=== PATIENT | female | born 1955 | race Caucasian/White ===

== ENCOUNTER → 2017-01-17 | Outpatient (CLI) | payer OTHER ==
[~2017-01-17] MED LIST: ACET-1311 PO; CHOL1000 PO; CLC100 PO; CYAN10005 PO; CYCL10TA6 PO; DOCU100C31 PO; FNTTP25 TOP; GABA-112 PO; GABA1CAP PO; GABA1CAP5 PO; LRS10 PO; MRLP17X PO; NRN100 PO; ONDA4TAB10 SL; ONDA4TAB46 PO; OXYC-57 PO; OXYC-88 PO; OXYC1TAB3 PO; POLY335019 PO; PRED50TA PO; PROC1TAB5 PO; TRAM-10 PO; VLTG EXT; voltaren gel
[2017-01-17 09:55] LABS: BASO % 0.3 %; BASO ABS # 0.03 K/uL (0-0.2); COMPLETE YES; EOS % 1.9 %; HEMATOCRIT 40.7 % (37-47); IG% 1.8 %; LYMPH % 21.3 %; LYMPH ABS # 1.92 K/uL (1.2-3.4); MEAN CELL VOLUME 84.6 fL (80-100); MEAN CORPUSCULAR HEMOGLOBIN 28.9 pg (25-34); MEAN CORPUSCULAR HGB CONC 34.2 g/dl (32-36); MEAN PLATELET VOLUME 9.1 fL (7.4-10.4); MONO % 7.6 %; NEUT % 67.1 %; PLATELET COUNT 194 K/uL (130-400); RED BLOOD COUNT 4.81 M/uL (4.2-5.4)
[2017-01-17 10:03] LABS: CALCIUM 9.4 mg/dl (8.5-10.1)
[2017-01-17 10:07] LABS: ALB/GLOB RATIO 1.1 (0.9-2); ALKALINE PHOSPHATASE 761 U/L (45-117); ALT/SGPT 21 U/L (12-78); AST/SGOT 28 U/L (15-37); BLOOD UREA NITROGEN 10 mg/dl (7-18); BUN/CREATININE RATIO 15.4 (10-20); C-REACTIVE PROTEIN 1.34 mg/dl (0-0.29); CARBON DIOXIDE 28 mmol/L (21-32); CHLORIDE 101 mmol/L (98-107); CREATININE 0.63 mg/dl (0.60-1.20); GLUCOSE 92 mg/dl (70-99); POTASSIUM 3.6 mmol/L (3.5-5.1); SODIUM 136 mmol/L (136-145)
[2017-01-17 10:18] LABS: PFT COL EPI 273 SECONDS (80-184)
[2017-01-17 10:46] LABS: PFT COL ADP 121 SECONDS (56-102)
[2017-01-17 12:10] LABS: LYME DISEASE AB IGG NEG (NEG)
[2017-01-17 12:13] LABS: LYME DISEASE AB IGM NEG (NEG)
== END | disposition home or self-care (01) ==
LOC: C.LAB 09:12
PROVIDERS: ATTEND Family Medicine
DX: R10.9 Unspecified abdominal pain (principal); R23.8 Other skin changes; Z68.24 Body mass index [BMI] 24.0-24.9, adult; M79.604 Pain in right leg; M54.5 Low back pain

== ENCOUNTER → 2017-01-20 | Outpatient (CLI) | payer OTHER ==
--- NOTE | 2017-02-14 15:51 | CODING QUERY NO DIAGNOSIS ---
TREATMENT RENDERED WITHOUT A DIAGNOSIS To promote full compliance with coding requirements relating to patient care, physician participation is requested in all cases of supervisor filter assembly uncertainty. Please assist us with providing a diagnosis/symptom for the test(s) below: A diagnosis/symptom was not documented on your Order. A valid diagnosis/symptom is required to bill all insurances. Please remember that we are unable to code a diagnosis of rule out, probable, possible, questionable, or suspected. Tests that require a diagnosis: * H. PYLORI ANTIGEN, STOOL DIAGNOSIS: Provider Signature: Date: Thank you Radha [employer] Once completed, please kindly fax back to [phone] For questions please call [phone]
== END | disposition home or self-care (01) ==
LOC: C.LABSPEC 10:00
PROVIDERS: ATTEND Family Medicine
DX: R10.9 Unspecified abdominal pain (principal)

== ENCOUNTER → 2017-01-23 | Outpatient (CLI) | payer OTHER ==
[~2017-01-23] MED LIST changes: +OPTIRAY 320 IV PRN
--- NOTE | 2017-01-23 14:14 | DIAGNOSTIC IMAGING REPORT ---
MRI OF THE BRAIN WITHOUT CONTRAST CLINICAL HISTORY: Bilateral leg and arm pain. Possible multiple sclerosis. History of endometriosis. COMPARISON STUDY: None. FINDINGS: Sagittal T1, axial diffusion, proton density and T2 weighted axial, coronal FLAIR, and axial T1-weighted images were acquired. No intra or extra-axial mass lesions are visualized Axial diffusion-weighted images reveal no evidence of acute or subacute infarction. There is no evidence of ventricular dilatation. Proton density T2-weighted and FLAIR images reveal scattered foci of increased T2 signal within the white matter, likely on a small vessel basis. The largest is located within the left frontal white matter measuring 6 mm. Other pathologic processes including demyelinating disease cannot be excluded. There are no abnormal flow voids. IMPRESSION: 1. No evidence of intracranial mass 2. No evidence of acute or subacute infarction 3. Scattered nonspecific foci of increased T2 and FLAIR signal within the white matter, the largest of which is located within the left frontal white matter measuring 6 mm. Electronically signed by: Mahamed Ramírez M.D. 01/23/2017 2:12 PM Dictated Date/Time: 01/23/2017 2:09 PM
--- NOTE | 2017-01-23 16:30 | DIAGNOSTIC IMAGING REPORT ---
ABDOMEN AND PELVIS CT WITH IV AND ORAL CONTRAST CT DOSE: 273.37 mGy.cm HISTORY: Pain B/L ARM/LEG Pain, hx OF ENDOMETRIOSIS TECHNIQUE: Multiaxial CT images of the abdomen and pelvis were performed following the use of intravenous and oral contrast. COMPARISON STUDY: 06/21/2008 FINDINGS: Lung bases are clear. Liver spleen and pancreas are uniform in appearance. Kidneys negative for hydronephrosis. Moderate thickening of the root of the mesentery. Numerous small mesenteric as well as pelvic nodes. These all are relatively small. Slight thickening of the terminal ileum. Moderate free fluid within the pelvic cul-de-sac. Possible right pelvic sidewall node measuring up to centimeters versus endometrioma. Bowel pattern overall is nonobstructive. Uterus remains midline. IMPRESSION: 1. Mild infiltrative changes of the root of the mesentery with a multiplicity of very small reactive mesenteric as well as pelvic nodes. 2. Nodular appearance to the right lateral pelvic sidewall with nodes or soft tissue deposits measuring up to 2.4 cm. 3. Moderate free fluid within the pelvic cul-de-sac. 4. Diagnostic considerations given the patient's history must include endometriosis, although if findings do not resolve an entity such as lymphomatous type change must be consideration. Electronically signed by: Jatin Nicholas M.D. 01/23/2017 4:29 PM Dictated Date/Time: 01/23/2017 4:25 PM
== END | disposition home or self-care (01) ==
LOC: C.MRI 13:23
PROVIDERS: ATTEND Family Medicine
DX: M79.606 Pain in leg, unspecified (principal); M79.603 Pain in arm, unspecified; R10.12 Left upper quadrant pain; Z87.898 Personal history of other specified conditions

== ENCOUNTER → 2017-01-24 | Outpatient (CLI) | payer OTHER ==
[~2017-01-24] MED LIST changes: -OPTIRAY 320 IV PRN
== END | disposition home or self-care (01) ==
LOC: C.LAB1850 15:45
PROVIDERS: ATTEND Obstetrics & Gynecology
DX: R93.5 Abnormal findings on diagnostic imaging of other abdominal regions, including retroperitoneum (principal)

== ENCOUNTER 2017-01-27 04:50 | Emergency (ER) | payer OTHER ==
[~2017-01-27] VITALS: Ht 162.6 cm; Wt 63.4 kg
[2017-01-27 04:54] VITALS: Ht 162.6 cm; Wt 63.4 kg
[2017-01-27] MEDS ORDERED: ONDANSETRON INJ 2 MG/ML 2 ML VIAL IV STA (05:23)
[2017-01-27] MEDS ORDERED: DEXAMETHASONE SOD INJ 10 MG/ML VIAL IV ONE (05:30)
[2017-01-27] MEDS ORDERED: SODIUM CHLORIDE 0.9% 1000ML 1,000 ML IV ONE (05:30)
[2017-01-27] MEDS ORDERED: MoRPHine SULFATE 4 MG/ML 1 ML CARP\\VIAL IV ONE (05:30)
[2017-01-27 05:51] LABS: HEMATOCRIT 36.2 % (37-47); MEAN CORPUSCULAR HGB CONC 33.7 g/dl (32-36); PLATELET COUNT 167 K/uL (130-400); RED BLOOD COUNT 4.36 M/uL (4.2-5.4); WHITE BLOOD COUNT 12.36 K/uL (4.8-10.8)
[2017-01-27 06:08] LABS: BUN/CREATININE RATIO 15.2 (10-20); CALCIUM 8.5 mg/dl (8.5-10.1); COMPLETE YES; CREATININE 0.59 mg/dl (0.60-1.20); LYMPH ABS # 2.52 K/uL (1.2-3.4); LYMPHOCYTE % 20.4 %; META ABS # 0.11 K/uL (0-0); METAMYELOCYTE % 0.9 %; POTASSIUM 3.3 mmol/L (3.5-5.1)
[2017-01-27 06:22] LABS: ALB/GLOB RATIO 1.1 (0.9-2); C-REACTIVE PROTEIN 1.14 mg/dl (0-0.29)
[2017-01-27] MEDS ORDERED: HYDROmorphone INJ 0.5 MG/0.5 ML SYR IV STA (06:37)
[2017-01-27] MEDS ORDERED: OXYC1TAB3 PO (06:39)
[2017-01-27] MEDS ORDERED: ONDA4TAB10 SL (06:39)
[2017-01-27] MEDS ORDERED: CYCL10TA6 PO (06:41)
[2017-01-27] MEDS ORDERED: GABA-112 PO (06:47)
[2017-01-27] MEDS ORDERED: CHOL1000 PO (06:47)
[2017-01-27] MEDS ORDERED: CYAN10005 PO (06:47)
[2017-01-27] MEDS ORDERED: PRED50TA PO (06:48)
[2017-01-27 07:01] VITALS: BP 121/74; PULSE 71; TEMP 36.6; O2SAT 99
--- NOTE | 2017-01-27 22:35 | EMERGENCY ROOM VISIT NOTE ---
History First contact with patient: 04:59 Chief Complaint: BACK PAIN Stated Complaint: EXTREME PAIN IN BACK,HIP AND LEGS History of Present Illness The patient is a 61 year old female who presents to the Emergency Room with complaints of low back pain radiating into her hips and down her legs. The patient states that she has had symptoms off and on for the past month, but it is exacerbated this past week. She has seen multiple providers for similar complaints this week, and has undergone outpatient pelvic ultrasound, CT scan of the abdomen and pelvis, and MRI of the brain regarding her symptoms. Initially there were concerns for possible etiologies such as endometriosis, and multiple sclerosis, causing these testings to be performed. The patient does not recall injury or trauma. She is currently on prednisone and Neurontin without any relief of symptoms. The patient states her symptoms worsen with movement, and make it difficult for her to rest comfortably in her bed. She has not had fever or chills. No chest pain, chest tightness, shortness of breath, or upper abdominal pain. She states ibuprofen was helping her symptoms at home, but she developed bruising, and she was asked to stop the medication. She rates her current discomfort an 8/10. Review of Systems More than 10 systems were reviewed and otherwise negative with the exception of history of present illness. Past Medical/Surgical History No reported chronic medical disease Family History No pertinent family history Social History Smoking Status: Never Smoker Housing Status: lives with family Current/Historical Medications Scheduled Cholecalciferol (Vitamin D3), 1,000 UNIT PO BID Cyanocobalamin (Vitamin B-12), 1,000 MCG PO BID Cyclobenzaprine Hcl (Flexeril), 10 MG PO TID Gabapentin (Neurontin), 100 MG PO DAILY Ondasetron Odt (Zofran Odt), 4 MG SL Q6H Prednisone (Prednisone), 50 MG PO DAILY Scheduled PRN Oxycodone Immediate Rel Tab (Roxicodone Ir), 1-2 TAB PO Q6 PRN for Pain Allergies Coded Allergies: Aspirin (Unverified Allergy, Unknown, ALTERED MENTAL STATUS, 01/27/17) Caffeine (Unverified Allergy, Unknown, ALTERED MENTAL STATUS, 01/27/17) Orphenadrine (Unverified Allergy, Unknown, ALTERED MENTAL STATUS, 01/27/17) Salicylates (Unverified Allergy, Unknown, ALTERED MENTAL STATUS, 01/27/17) Uncoded Allergies: XANTHINE (Allergy, Unknown, ALTERED MENTAL STATUS, 10/13/09) Physical Exam Vital Signs Date Time Temp Pulse Resp B/P Pulse Ox O2 Delivery O2 Flow Rate FiO2 01/27/17 07:01 36.6 71 18 121/74 99 01/27/17 06:44 71 18 121/74 99 Room Air 01/27/17 04:54 36.6 81 18 132/68 98 Room Air Pain Rating (0-10): 4.0 Physical Exam VITALS: Vitals are noted on the nurse's note and reviewed by myself. Vital signs stable. GENERAL: Well-developed, well-nourished, white female who appears mildly uncomfortable on examination. Patient is cooperative with the examination. HEAD: Normocephalic atraumatic. NECK: Supple without nuchal rigidity. No lymphadenopathy. No thyromegaly. Cervical spine is nontender. HEART: Regular rate and rhythm without murmurs gallops or rubs. LUNGS: Clear to auscultation bilaterally without wheezes, rales or rhonchi. No retractions or accessory muscle use. ABDOMEN: Positive normal bowel sounds x 4. Soft, nontender, without masses or organomegaly. No guarding or rebound tenderness. MUSCULOSKELETAL: No muscle atrophy, erythema, or edema noted. Full range of motion without joint tenderness in all extremities. Positive tenderness throughout the lower lumbar spine and SI joints. Negative straight leg raise. No saddle paresthesias. Neurovascular status is intact distally. NEURO: Patient was alert and oriented to person place and time. CN II through XII grossly intact. Medical Decision & Procedures Laboratory Results 01/27/17 05:35 Red Blood Count 4.36, Mean Corpuscular Volume 83.0, Mean Corpuscular Hemoglobin 28.0, Mean Corpuscular Hemoglobin Concent 33.7, Mean Platelet Volume 9.0 01/27/17 05:35 Test 01/27/17 05:35 White Blood Count 12.36 K/uL (4.8-10.8) Red Blood Count 4.36 M/uL (4.2-5.4) Hemoglobin 12.2 g/dL (12.0-16.0) Hematocrit 36.2 % (37-47) Mean Corpuscular Volume 83.0 fL (80-100) Mean Corpuscular Hemoglobin 28.0 pg (25-34) Mean Corpuscular Hemoglobin Concent 33.7 g/dl (32-36) Platelet Count 167 K/uL (130-400) Mean Platelet Volume 9.0 fL (7.4-10.4) RDW Standard Deviation 40.1 fL (36.4-46.3) RDW Coefficient of Variation 13.2 % (11.5-14.5) Neutrophils % (Manual) 76.0 % Lymphocytes % (Manual) 20.4 % Monocytes % (Manual) 2.7 % Metamyelocytes % 0.9 % Neutrophils # (Manual) 9.39 K/uL (1.4-6.5) Total Absolute Neutrophils 9.39 K/uL (1.4-6.5) Lymphocytes # (Manual) 2.52 K/uL (1.2-3.4) Total Absolute Lymphocytes 2.52 K/uL (1.2-3.4) Monocytes # (Manual) 0.33 K/uL (0.11-0.59) Metamyelocytes # 0.11 K/uL (0-0) Red Blood Cell Morphology Unremarkable Erythrocyte Sedimentation Rate 2 mm/hr (0-21) Anion Gap 9.0 mmol/L (3-11) Est Creatinine Clear Calc Drug Dose 88.7 ml/min Estimated GFR () 116.3 Estimated GFR (Non- 100.3 BUN/Creatinine Ratio 15.2 (10-20) Calcium Level 8.5 mg/dl (8.5-10.1) Total Bilirubin 0.4 mg/dl (0.2-1) Aspartate Amino Transf (AST/SGOT) 29 U/L (15-37) Alanine Aminotransferase (ALT/SGPT) 24 U/L (12-78) Alkaline Phosphatase 977 U/L (45-117) C-Reactive Protein 1.14 mg/dl (0-0.29) Total Protein 7.0 gm/dl (6.4-8.2) Albumin 3.7 gm/dl (3.4-5.0) Globulin 3.3 gm/dl (2.5-4.0) Albumin/Globulin Ratio 1.1 (0.9-2) Medications Administered Medications (Trade) Dose Ordered Sig/[place] Route Start Time Stop Time Status Last Admin Dose Admin Dexamethasone Sodium Phosphate 10 mg 10 mg NOW ONCE IV 01/27/17 05:30 01/27/17 05:31 DC 01/27/17 05:43 10 MG Sodium Chloride (Nss 1000ml) 1,000 ml @ 999 mls/hr Q1H1M ONCE IV 01/27/17 05:30 01/27/17 06:30 DC 01/27/17 05:43 999 MLS/HR Morphine Sulfate (MoRPHine SULFATE INJ) 4 mg NOW ONCE IV 01/27/17 05:30 01/27/17 05:31 DC 01/27/17 05:43 4 MG Ondansetron HCl (Zofran Inj) 4 mg NOW STAT IV 01/27/17 05:23 01/27/17 05:25 DC 01/27/17 05:43 4 MG Hydromorphone HCl (Dilaudid Inj) 0.5 mg NOW STAT IV 01/27/17 06:37 01/27/17 06:38 DC 01/27/17 06:40 0.5 MG ED Course Physical exam and history were performed. Nursing notes and EMR were reviewed. Patient appears to have back pain with radiation down her legs that appears worsened with movement. The patient has had multiple evaluations for back/ abdominal pain as an outpatient. She does not appear toxic today, and clinically her symptoms correlate with low back pain. Because she has had symptoms for some time I did elect to collect blood work. The patient was given IV morphine and IV Decadron for comfort. The patient's work is as above and was reviewed. She does have a very slightly elevated white blood cell count, but this is felt to be secondary to her prednisone usage. She does not have a significant anemia, bandemia, or significant electrolyte imbalance. On reevaluation the patient did have some mild improvement of her symptoms after morphine. She continued to have difficulty getting comfortable in the emergency department bed, and I did elect to give her 0.5 mg IV Dilaudid. This did improve her discomfort and she was able to rest comfortably. Review of the patient's EMR shows that she has had an MRI of her low back within the past 2 years which did show some disc disease. Clinically I feel this is the most likely cause of the patient's discomfort, and will provide her a course of oxycodone and Flexeril. She evidently has an appointment in several hours with her primary care physician for this complaint. She was asked to keep this appointment, and was invited back to the emergency department with a new, worsening, or concerning symptoms. The chart was completed utilizing [employer] Speech Voice Recognition Software. Grammatical errors, random word insertions, pronoun errors, and incomplete sentences are an occasional consequence of this system due to software limitations, ambient noise, and hardware issues. Any formal questions or concerns about the content, text, or information contained within the body of this dictation should be directly addressed to the provider for clarification. . Medical Decision Differential diagnosis: Etiologies such as musculoskeletal, disc herniation, fracture, aortic disease, metastatic disease, cord compression, discitis, infection, renal colic, gastrointestinal, acute exacerbation of chronic back pain, sciatica, cauda equina, as well as others were entertained. Impression Primary Impression: Low back pain Departure Information Dispostion Home / Self-Care Condition FAIR Prescriptions Cyclobenzaprine Hcl (FLEXERIL) 10 Mg Tab 10 MG PO TID for 7 Days, #21 TAB Prov: Jose R Payton PA-C 01/27/17 Ondasetron Odt (ZOFRAN ODT) 4 Mg Tab 4 MG SL Q6H for Nausea, #12 TAB Prov: Jose R Payton PA-C 01/27/17 Oxycodone Immediate Rel Tab (ROXICODONE IR) 5 Mg Tab 1-2 TAB PO Q6 Y for Pain, #15 TAB For initial treatment Prov: Jose R Payton PA-C 01/27/17 Forms HOME CARE DOCUMENTATION FORM, IMPORTANT VISIT INFORMATION Patient Instructions My [facility] Additional Instructions You were seen and evaluated today on an emergency basis only. This is not a substitute for, or an effort to provide, complete comprehensive medical care. It is not possible to recognize and treat all injuries or illnesses in a single emergency department visit. For this reason it is recommended that you followup with your primary care physician as scheduled later today. Oxycodone (OxyIR) 5mg: Take ONE or TWO pills every SIX hours for breakthrough pain. Avoid alcohol, operating machinery or dangerous equipment, working on ladders or roofs, DRIVING, or situations where being under the influence may be dangerous. It is recommended to use an [id number] stool softener such as Colace, 100mg twice daily while taking this medication to avoid constipation. Flexeril 1 tablet up to 3 times a day as needed for muscle spasms. No driving, working, or alcohol use with Flexeril. Zofran 1 tablet every 6 hrs as needed for nausea. You are welcome to return to the emergency department anytime with new, worsening, or concerning symptoms.
[2017-01-29] MEDS ORDERED: GABA-112 PO (16:48)
[2017-01-29] MEDS ORDERED: DOCU100C31 PO (16:48)
[2017-01-29] MEDS ORDERED: LRS10 PO (16:48)
[2017-01-29] MEDS ORDERED: TRAM-10 PO (16:48)
[2017-02-06] MEDS ORDERED: OXYC-88 PO (10:15)
[2017-02-06] MEDS ORDERED: GABA1CAP PO (10:15)
[2017-02-06] MEDS ORDERED: VLTG EXT (10:15)
[2017-02-06] MEDS ORDERED: MRLP17X PO (10:15)
[2017-02-06] MEDS ORDERED: ONDA4TAB10 SL (10:15)
[2017-02-06] MEDS ORDERED: CLC100 PO (10:15)
[2017-03-04] MEDS ORDERED: PROC1TAB5 PO (08:48)
[2017-04-11] MEDS ORDERED: DOCU100C31 PO (10:29)
[2017-04-11] MEDS ORDERED: voltaren gel (10:31)
[2017-04-11] MEDS ORDERED: ACET-1311 PO (10:32)
[2017-04-11] MEDS ORDERED: ONDA4TAB46 PO (10:32)
[2017-04-11] MEDS ORDERED: POLY335019 PO (10:32)
== END 2017-01-27 07:02 | disposition home or self-care (01) ==
LOC: C.EDB 04:52
DX: M54.5 Low back pain (principal); Z79.899 Other long term (current) drug therapy; Z88.6 Allergy status to analgesic agent; Z88.8 Allergy status to other drugs, medicaments and biological substances

== ENCOUNTER → 2017-01-28 | Outpatient (CLI) | payer OTHER | END | disposition home or self-care (01) | LOC: C.LAB1850 16:06 | PROVIDERS: ATTEND Family Medicine | DX: R10.10 Upper abdominal pain, unspecified (principal); R93.3 Abnormal findings on diagnostic imaging of other parts of digestive tract; R74.8 Abnormal levels of other serum enzymes; R79.1 Abnormal coagulation profile; M79.604 Pain in right leg; Z68.23 Body mass index [BMI] 23.0-23.9, adult; R20.2 Paresthesia of skin ==

== ENCOUNTER 2017-01-29 16:21 | Inpatient (IN) | payer OTHER ==
[~2017-01-29] VITALS: Ht 162.6 cm; Wt 61.4 kg
[~2017-01-29 16:21] MED LIST changes: -ACET-1311 PO; -CLC100 PO; -DOCU100C31 PO; -FNTTP25 TOP; -GABA1CAP PO; -GABA1CAP5 PO; -LRS10 PO; -MRLP17X PO; -NRN100 PO; -ONDA4TAB46 PO; -OXYC-57 PO; -OXYC-88 PO; -POLY335019 PO; -PROC1TAB5 PO; -TRAM-10 PO; -VLTG EXT; -voltaren gel
[2017-01-29] MEDS ORDERED: LRS10 PO ×2 (16:48)
[2017-01-29] MEDS ORDERED: TRAM-10 PO ×2 (16:48)
[2017-01-29] MEDS ORDERED: GABA-112 PO ×2 (16:48)
[2017-01-29] MEDS ORDERED: DOCU100C31 PO ×2 (16:48)
[2017-01-29] MEDS ORDERED: SODIUM CHLORIDE 0.9% 1000ML 1,000 ML IV STA (17:11)
[2017-01-29] MEDS ORDERED: PROMETHAZINE HCL INJ 25 MG/ML 1 ML VIAL IV STA (17:11)
[2017-01-29] MEDS ORDERED: SODIUM CHLORIDE 0.9% 1000ML 500 ML IV STA (17:11)
[2017-01-29] MEDS: HYDROmorphone INJ 2 MG/ML SYR/VIAL IV PRN ×2 (17:37→20:39)
[2017-01-29 17:40] LABS: HEMATOCRIT 37.4 % (37-47); MEAN CELL VOLUME 83.5 fL (80-100); MEAN CORPUSCULAR HEMOGLOBIN 27.7 pg (25-34); MEAN CORPUSCULAR HGB CONC 33.2 g/dl (32-36); MEAN PLATELET VOLUME 9.2 fL (7.4-10.4); PLATELET COUNT 147 K/uL (130-400); RED BLOOD COUNT 4.48 M/uL (4.2-5.4); WHITE BLOOD COUNT 11.84 K/uL (4.8-10.8)
[2017-01-29 17:49] LABS: INR 1.1 (0.9-1.1); PARTIAL THROMBOPLASTIN RATIO 0.9; PROTHROMBIN TIME (PATIENT) 12.3 SECONDS (9.0-12.0)
--- NOTE | 2017-01-29 17:51 | EMERGENCY ROOM VISIT NOTE ---
History Report prepared by Keo: Anthony Graham Under the Supervision of: Dr. Patrick Lopez M.D. First contact with patient: 17:00 Chief Complaint: PAIN (GENERALIZED) Stated Complaint: SEVERE BACK PAIN,PELVIS/LEG PAIN- PHYSICIAN REFERR History of Present Illness The patient is a 61 year old female who presents to the Emergency Room with complaints of worsening, throbbing lower back pain, lower pelvic pain, and bilateral leg pain for the past two and a half weeks. The patient rates her discomfort as a 9/10 in severity. The patient states that movement exacerbates the pain. She states that the pain started about a month ago, and she went to a chiropractor, and then after a few days it felt better until two and a half weeks ago. The patient states that she has an extensive history of testing such as CT scans, pelvic ultrasound, and brain MRI, and there have not been any conclusive diagnoses. Additionally, she states that they have tested her for ovarian cancer, and it was negative. The patient denies any urinary symptoms, and she states that she has a loss of appetite and some bruising. The patient states that she is currently taking pain medications and muscle relaxers, though they are not helping her, though she states that icing her back somewhat helps. The patient additionally states that she was recently taking prednisone, and it did not help as well. She states that she has been drinking well, and sometimes she feels very hot, though she denies any chills. She denies any history of abdominal surgery. Source of History: patient Onset: two and a half weeks ago Position: pelvis, back (lower), leg (bilateral) Symptom Intensity: 9/10 Quality: other (throbbing) Timing: worsening Modifying Factors (Worsening): movement Modifying Factors (Relieving): ice Associated Symptoms: + back pain, No chills, No urinary symptoms Note: Associated symptoms: Loss of appetite Review of Systems See HPI for pertinent positives & negatives. A total of 10 systems reviewed and were otherwise negative. Past Medical & Surgical Medical Problems: (1) Intractable low back pain Social History Smoking Status: Never Smoker Marital Status: Housing Status: lives with family Occupation Status: employed Current/Historical Medications Scheduled Baclofen (Baclofen), 5 MG PO BID Cholecalciferol (Vitamin D3), 1,000 UNIT PO BID Cyanocobalamin (Vitamin B-12), 1,000 MCG PO BID Docusate Sodium (Docusate Sodium), 100 CAP PO BID Gabapentin (Neurontin), 100 MG PO BID Gabapentin (Neurontin), 200 MG PO HS Scheduled PRN Tramadol (Ultram), 50-100 MG PO Q6H PRN for Pain Allergies Coded Allergies: Aspirin (Unverified Allergy, Unknown, ALTERED MENTAL STATUS, 01/29/17) Caffeine (Unverified Allergy, Unknown, ALTERED MENTAL STATUS, 01/29/17) Naproxen (Unverified Allergy, Unknown, UNKNOWN, 01/29/17) Orphenadrine (Unverified Allergy, Unknown, ALTERED MENTAL STATUS, 01/29/17) Salicylates (Unverified Allergy, Unknown, ALTERED MENTAL STATUS, 01/29/17) Uncoded Allergies: XANTHINE (Allergy, Unknown, ALTERED MENTAL STATUS, 10/13/09) Physical Exam Vital Signs Date Time Temp Pulse Resp B/P Pulse Ox O2 Delivery O2 Flow Rate FiO2 01/29/17 20:08 98 18 131/67 95 Room Air 01/29/17 19:32 116/94 01/29/17 16:25 36.9 82 18 92/58 95 Room Air Physical Exam GENERAL: Patient is in no acute distress. HEENT: No acute trauma, normocephalic atraumatic, mucous membranes are dry, no nasal congestion, no scleral icterus. NECK: No stridor, no adenopathy, no meningismus, trachea is midline. LUNGS: Clear to auscultation bilaterally, no wheeze, no rhonchi, breath sounds equal. HEART: Without murmurs gallops or rubs, regular rate and rhythm. ABDOMEN: Mildly distended. Soft, nontender, bowel sounds positive, no hernias, no peritonitis. BACK: Lower back pain with any movement. EXTREMITIES: No cyanosis or edema, full range of motion of all the joints without pain or difficulty, no signs for acute trauma. NEUROLOGIC: Oriented x 3, no acute motor or sensory deficits, no focal weakness. SKIN: No rash, no jaundice, no diaphoresis. Medical Decision & Procedures ER Provider Diagnostic Interpretation: Radiology results as stated below per my review and radiologist interpretation: MRI OF THE LUMBAR SPINE WITH AND WITHOUT CONTRAST CLINICAL HISTORY: Severe low back and lower extremity pain. COMPARISON STUDY: Lumbar spine MRI August 10, 2015. TECHNIQUE: Utilizing a 1.5 Deonna magnet and dedicated coil, multiplanar, multiecho imaging of the lumbar spine was performed before and after uneventful IV administration of 6 mL of Gadavist. FINDINGS: For purposes of numbering on this exam, the L5-S1 disc space is assigned to axial image 27 of 30. Alignment of the lumbar spine is anatomic. Vertebral body heights are maintained. There are innumerable foci of diminished T1 signal and increased T2 signal throughout the lower thoracic spine, lumbar spine, sacrum and visualized portions of the pelvis. No pathologic fracture is identified. The largest of these is a 2 cm lesion within the T11 vertebral body. There is no intracanalicular mass or fluid collection. The conus to moderate at the mid L1 level. A small amount of fluid is noted within the pelvis. L1-2: The central canal and neural foramen are patent. L2-3: The central canal and neural foramen are patent. L3-4: There is minimal disc bulge. The central canal and neural foramen are patent. L4-5: The central canal and neural foramen are patent. L5-S1: There is minimal disc bulge. The central canal and neural foramen are patent. IMPRESSION: 1. Innumerable foci of marrow replacement within visualized skeletal structures consistent with a neoplastic process such as metastatic disease, lymphoma or less likely myeloma. Metastatic disease is favored. Findings discussed with Dr. Lopez at time of dictation. 2. Mild multilevel degenerative disc disease. No disc herniation. Patent central canal and neural foramen. No intracanalicular mass or pathologic enhancement. 3. Small amount of ascites within the pelvis. Electronically signed by: William Chaudhry M.D. 01/29/2017 8:01 PM Dictated Date/Time: 01/29/2017 7:36 PM Laboratory Results 01/29/17 17:29 Red Blood Count 4.48, Mean Corpuscular Volume 83.5, Mean Corpuscular Hemoglobin 27.7, Mean Corpuscular Hemoglobin Concent 33.2, Mean Platelet Volume 9.2 01/29/17 17:29 Test 01/29/17 17:29 01/29/17 17:41 White Blood Count 11.84 K/uL (4.8-10.8) Red Blood Count 4.48 M/uL (4.2-5.4) Hemoglobin 12.4 g/dL (12.0-16.0) Hematocrit 37.4 % (37-47) Mean Corpuscular Volume 83.5 fL (80-100) Mean Corpuscular Hemoglobin 27.7 pg (25-34) Mean Corpuscular Hemoglobin Concent 33.2 g/dl (32-36) Platelet Count 147 K/uL (130-400) Mean Platelet Volume 9.2 fL (7.4-10.4) RDW Standard Deviation 40.3 fL (36.4-46.3) RDW Coefficient of Variation 13.3 % (11.5-14.5) Nucleated RBC Absolute Count (auto) 0.03 K/uL (0-0) Neutrophils % (Manual) 76.4 % Lymphocytes % (Manual) 14.8 % Monocytes % (Manual) 6.1 % Basophils % (Manual) 0.9 % Metamyelocytes % 0.9 % Myelocytes % 0.9 % Nucleated Red Blood Cells % 0.2 % Neutrophils # (Manual) 9.05 K/uL (1.4-6.5) Total Absolute Neutrophils 9.05 K/uL (1.4-6.5) Lymphocytes # (Manual) 1.75 K/uL (1.2-3.4) Total Absolute Lymphocytes 1.75 K/uL (1.2-3.4) Monocytes # (Manual) 0.72 K/uL (0.11-0.59) Basophils # (Manual) 0.11 K/uL (0-0.2) Metamyelocytes # 0.11 K/uL (0-0) Myelocytes # 0.11 K/uL (0-0) Red Blood Cell Morphology Unremarkable Erythrocyte Sedimentation Rate 5 mm/hr (0-21) Prothrombin Time 12.3 SECONDS (9.0-12.0) Prothromb Time International Ratio 1.1 (0.9-1.1) Activated Partial Thromboplast Time 24.5 SECONDS (21.0-31.0) Partial Thromboplastin Ratio 0.9 Anion Gap 6.0 mmol/L (3-11) Est Creatinine Clear Calc Drug Dose 91.8 ml/min Estimated GFR () 117.6 Estimated GFR (Non- 101.5 BUN/Creatinine Ratio 24.3 (10-20) Lactic Acid Level 0.6 mmol/L (0.4-2.0) Calcium Level 8.7 mg/dl (8.5-10.1) Magnesium Level 2.2 mg/dl (1.8-2.4) Total Bilirubin 0.6 mg/dl (0.2-1) Direct Bilirubin 0.1 mg/dl (0-0.2) Aspartate Amino Transf (AST/SGOT) 40 U/L (15-37) Alanine Aminotransferase (ALT/SGPT) 30 U/L (12-78) Alkaline Phosphatase 1101 U/L (45-117) Total Creatine Kinase 93 U/L (26-192) C-Reactive Protein 4.42 mg/dl (0-0.29) Total Protein 6.7 gm/dl (6.4-8.2) Albumin 3.4 gm/dl (3.4-5.0) Lipase 208 U/L (73-393) Thyroid Stimulating Hormone (TSH) 1.700 uIu/ml (0.300-4.500) Urine Color ORANGE Urine Appearance CLOUDY (CLEAR) Urine pH 5.0 (4.5-7.5) Urine Specific [place] 1.023 (1.000-1.030) Urine Protein NEG (NEG) Urine Glucose (UA) NEG (NEG) Urine Ketones TRACE (NEG) Urine Occult Blood 1+ (NEG) Urine Nitrite NEG (NEG) Urine Bilirubin NEG (NEG) Urine Urobilinogen NEG (NEG) Urine Leukocyte Esterase MODERATE (NEG) Urine WBC (Auto) 10-30 /hpf (0-5) Urine RBC (Auto) 0-4 /hpf (0-4) Urine Hyaline Casts (Auto) 10-30 /lpf (0-5) Urine Epithelial Cells (Auto) 20-30 /lpf (0-5) Urine Bacteria (Auto) NEG (NEG) Urine Crystals CALCIUM OXALATE (NONE Laboratory results reviewed by me. Medications Administered Medications (Trade) Dose Ordered Sig/[place] Route Start Time Stop Time Status Last Admin Dose Admin Sodium Chloride 500 ml @ 999 mls/hr Q31M STAT IV 01/29/17 17:11 01/29/17 17:41 DC 01/29/17 17:36 999 MLS/HR Sodium Chloride (Nss 1000ml) 1,000 ml @ 200 mls/hr Q5H STAT IV 01/29/17 17:11 01/29/17 22:05 DC 01/29/17 17:11 200 MLS/HR Hydromorphone HCl 0.5 mg 0.5 mg Q15M PRN IV 01/29/17 17:15 01/29/17 22:05 DC 01/29/17 20:39 0.5 MG Promethazine HCl/ Sodium Chloride (Phenergan Inj/ Nss 50ml) 50.5 ml @ 202 mls/hr Q6H PRN IV 01/29/17 18:00 01/30/17 03:24 DC 01/29/17 18:03 202 MLS/HR ED Course 1700: The patient was evaluated in room A12. A complete history and physical exam was performed. 1711: Sodium Chloride 1000 ml @ 200 mls/hr IV, Sodium Chloride 500 ml @ 999 mls/ hr IV 1715: Dilaudid Inj 0.5mg IV 1800: Promethazine HCl 12.5mg/ Sodium Chloride 50.5ml @ 202 mls/hr IV 2003: I discussed the patient's case with Dr. Espinoza. He is going to evaluate the patient for further treatment. 2005: I reevaluated the patient, and I discussed the treatment plan, and she understands that she will be coming in for further evaluation. Medical Decision The patient is a 61 year old female who presents to the ED with complaints of generalized pain. Differential diagnoses considered include lumbar disc disease , osteomyelitis, malignancy, discitis, dehydration, electrolyte imbalance, UTI, and anemia. There is a mild leukocytosis present, a left shift is present. This could be consistent with infection. No worrisome anemia. No significant electrolyte abnormality or kidney failure. Alkaline phosphatase is elevated at over 1000. Urinalysis shows contamination, no obvious infection. Lactic acid level was not elevated making sepsis and bowel ischemia less likely. MRI of the lumbar spine showed diffuse involvement of the bones of the lumbar spine and pelvis. Findings were consistent with malignancy, possibly lymphoma or metastatic disease. No fracture was seen. No large disc herniation. The patient received IV saline, IV Phenergan and IV Dilaudid, she is more comfortable. I spoke to the patient about her findings, she does require hospitalization for further care and further workup. Case management has been involved. The on- call hospitalist was consulted. Consults Time Called: 1954 Consulting Physician: Dr. Espinoza Returned Call: 2003 I discussed the patient's case with Dr. Espinoza. He is going to evaluate the patient for further treatment. Impression Primary Impression: Lower back pain Additional Impressions: Pelvic pain Malignancy Scribe Attestation The scribe's documentation has been prepared under my direction and personally reviewed by me in its entirety. I confirm that the note above accurately reflects all work, treatment, procedures, and medical decision making performed by me. Departure Information Dispostion Being Evaluated By Hospitalist Referrals Avila Busch M.D. (PCP) Patient Instructions My [facility] Problem Qualifiers
[2017-01-29] MEDS ORDERED: PROMETHAZINE HCL INJ 12.5 MG in SODIUM CHLORIDE 0.9% 50ML 50 ML IV PRN (18:00)
[2017-01-29 18:05] LABS: URINE APPEARANCE CLOUDY (CLEAR); URINE BILIRUBIN NEG (NEG); URINE COLOR ORANGE; URINE EPITHELIAL CELL AUTO 20-30 /lpf (0-5); URINE NITRITE NEG (NEG); URINE SPECIFIC GRAVITY 1.023 (1.000-1.030); UROBILINOGEN NEG (NEG); ZZUR CULT IF INDIC CLEAN CATCH YES
[2017-01-29 18:05] LABS: BASO ABS # 0.11 K/uL (0-0.2); BASOPHIL % 0.9 %; COMPLETE YES; LYMPH ABS # 1.75 K/uL (1.2-3.4); LYMPHOCYTE % 14.8 %; META ABS # 0.11 K/uL (0-0); METAMYELOCYTE % 0.9 %; MYELOCYTE % 0.9 %; NEUTROPHILS % 76.4 %
[2017-01-29 18:08] LABS: MANUAL MICROSCOPIC REQUIRED? NO; REVIEW REQ? YES
[2017-01-29 18:12] LABS: BUN/CREATININE RATIO 24.3 (10-20); CALCIUM 8.7 mg/dl (8.5-10.1); CREATININE 0.57 mg/dl (0.60-1.20); MAGNESIUM 2.2 mg/dl (1.8-2.4); POTASSIUM 3.4 mmol/L (3.5-5.1)
[2017-01-29 18:26] LABS: C-REACTIVE PROTEIN 4.42 mg/dl (0-0.29); THYROID STIMULATING HORMONE 1.7 uIu/ml (0.300-4.500)
[2017-01-29] MEDS ORDERED: GADAVIST IV PRN (19:45)
--- NOTE | 2017-01-29 20:02 | DIAGNOSTIC IMAGING REPORT ---
MRI OF THE LUMBAR SPINE WITH AND WITHOUT CONTRAST CLINICAL HISTORY: Severe low back and lower extremity pain. COMPARISON STUDY: Lumbar spine MRI August 10, 2015. TECHNIQUE: Utilizing a 1.5 Deonna magnet and dedicated coil, multiplanar, multiecho imaging of the lumbar spine was performed before and after uneventful IV administration of 6 mL of Gadavist. FINDINGS: For purposes of numbering on this exam, the L5-S1 disc space is assigned to axial image 27 of 30. Alignment of the lumbar spine is anatomic. Vertebral body heights are maintained. There are innumerable foci of diminished T1 signal and increased T2 signal throughout the lower thoracic spine, lumbar spine, sacrum and visualized portions of the pelvis. No pathologic fracture is identified. The largest of these is a 2 cm lesion within the T11 vertebral body. There is no intracanalicular mass or fluid collection. The conus to moderate at the mid L1 level. A small amount of fluid is noted within the pelvis. L1-2: The central canal and neural foramen are patent. L2-3: The central canal and neural foramen are patent. L3-4: There is minimal disc bulge. The central canal and neural foramen are patent. L4-5: The central canal and neural foramen are patent. L5-S1: There is minimal disc bulge. The central canal and neural foramen are patent. IMPRESSION: 1. Innumerable foci of marrow replacement within visualized skeletal structures consistent with a neoplastic process such as metastatic disease, lymphoma or less likely myeloma. Metastatic disease is favored. Findings discussed with Dr. Lopez at time of dictation. 2. Mild multilevel degenerative disc disease. No disc herniation. Patent central canal and neural foramen. No intracanalicular mass or pathologic enhancement. 3. Small amount of ascites within the pelvis. Electronically signed by: William Chaudhry M.D. 01/29/2017 8:01 PM Dictated Date/Time: 01/29/2017 7:36 PM
[2017-01-29] MEDS ORDERED: OXYCODONE/ACETAMINOPHEN 10/325MG TAB PO PRN (20:45)
[2017-01-29] MEDS ORDERED: ZOLPIDEM TARTRATE 5 MG TAB PO PRN (20:45)
[2017-01-29] MEDS ORDERED: ALUMINUM/MAGNESIUM/SIMETH (MAALOX MAX) 30 ML UDC PO PRN (20:45)
[2017-01-29] MEDS ORDERED: MAGNESIUM HYDROXIDE SUSP 30 ML UDC PO PRN (20:45)
[2017-01-29] MEDS ORDERED: POLYETHYLENE (MIRALAX) 17 GM PACK PO PRN (20:45)
[2017-01-29] MEDS ORDERED: MoRPHine SULFATE 4 MG/ML 1 ML CARP\\VIAL IV PRN (20:45)
[2017-01-29] MEDS ORDERED: ACETAMINOPHEN 325 MG TAB PO PRN (20:45)
[2017-01-29] MEDS ORDERED: OPTIRAY 320 IV PRN (21:00)
[2017-01-29] MEDS ORDERED: IV FLUIDS COMPLETED PRN (21:30)
--- NOTE | 2017-01-29 21:41 | History and Physical ---
History & Physical Date & Time of Service: January 29, 2017 at 20:33 Chief Complaint: Severe Back Pain,Pelvis/Leg Pain- Physician Referr Primary Care Physician: Avila Busch M.D. History of Present Illness Source: patient, family 61 y/o F presenting with 2-3 months of vague symptoms including progressive lower back pain, B/L leg pain, night sweats and a degree of weight loss. A few weeks ago she was seen by a corn detasseler machine operator for frequent bruising which was attributed ultimately to NSAID use. Her pain over the last 2 weeks has become severe and intractable and she was sent to the hospital by her MD for further evaluation and pain control. On 01/[address] of the abdomen/pelvis which revealed multiple small LNs and a 2.4cm soft tissue deposit read as possible inflammatory changes although lymphoma could not be ruled out. She had an MRI of her lumbar spine in the ER prior to admission which showed multiple foci of marrow replacement consistent with a neoplastic process again sighting lymphoma as a reasonable possibility. She is admitted primarily for pain control. She has been informed with family present that she may have an active neoplastic process and that we will be consulting hematology to advise on further workup in isolating a primary source to be followed by staging and prognostication. Past Medical/Surgical History No recent active medical issues Family History She has had 2nd degree relatives with CA although she does not have any specifics - no CA in immediate family Social History Smoking Status: Never Smoker Alcohol Use: none Marital Status: Occupational Status: employed Multi-Drug Resistant Organisms History of MDRO: No Allergies Coded Allergies: Aspirin (Unverified Allergy, Unknown, ALTERED MENTAL STATUS, 01/29/17) Caffeine (Unverified Allergy, Unknown, ALTERED MENTAL STATUS, 01/29/17) Naproxen (Unverified Allergy, Unknown, UNKNOWN, 01/29/17) Orphenadrine (Unverified Allergy, Unknown, ALTERED MENTAL STATUS, 01/29/17) Salicylates (Unverified Allergy, Unknown, ALTERED MENTAL STATUS, 01/29/17) Uncoded Allergies: XANTHINE (Allergy, Unknown, ALTERED MENTAL STATUS, 10/13/09) Home Medications Scheduled Baclofen (Baclofen), 5 MG PO BID Cholecalciferol (Vitamin D3), 1,000 UNIT PO BID Cyanocobalamin (Vitamin B-12), 1,000 MCG PO BID Docusate Sodium (Docusate Sodium), 100 CAP PO BID Gabapentin (Neurontin), 100 MG PO BID Gabapentin (Neurontin), 200 MG PO HS Scheduled PRN Tramadol (Ultram), 50-100 MG PO Q6H PRN for Pain Review of Systems Constitutional: + fatigue, + sweats, + weakness, + weight loss, No chills, No fever Eyes: No eye pain, No worsening of vision ENT: No hearing loss, No nasal symptoms, No unusual epistaxis Respiratory: No cough, No dyspnea at rest, No dyspnea on exertion, No shortness of breath, No sputum, No wheezing Cardiovascular: No PND, No chest pain, No orthopnea Abdomen: No nausea, No pain, No vomiting Musculoskeletal: + joint pain, + muscle pain, + problem reported (Severe pain in lower back and B/L LEs as above) Genitourinary - Female: No dysuria, No urinary frequency, No urinary urgency Neurologic: No memory loss, No paralysis, No weakness Psychiatric: No depression symptoms Endocrine: No fatigue Hematologic / Lymphatic: + abnormal bleeding/bruising Integumentary: No rash Allergic / Immunologic: No environmental allergies Physical Exam Vital Signs Date Time Temp Pulse Resp B/P Pulse Ox O2 Delivery O2 Flow Rate FiO2 01/29/17 20:08 98 18 131/67 95 Room Air 01/29/17 16:25 36.9 82 18 92/58 95 Room Air General Appearance: WD/WN, no apparent distress Head: normocephalic, atraumatic Eyes: normal inspection, PERRL, EOMI ENT: normal ENT inspection, pharynx normal Neck: supple, no adenopathy, thyroid normal, no JVD Respiratory/Chest: chest non-tender, lungs clear, normal breath sounds Cardiovascular: regular rate, rhythm, no edema, no gallop, no JVD, no murmur, normal peripheral pulses Abdomen/GI: normal bowel sounds, non tender, soft Back: normal range of motion, + pertinent finding (PAinover lower back/hips) Extremities/Musculoskelatal: normal inspection, no calf tenderness, normal capillary refill, no pedal edema, normal range of motion Neurologic/Psych: senior resident care director II-XII nml as tested, no motor/sensory deficits, alert, normal mood/affect, normal reflexes, oriented x 3 Skin: normal color, warm/dry, no rash, + pertinent finding (multiple small bruises on LEs) Diagnostics Laboratory Results Results Past 24 Hours Test 01/29/17 17:29 01/29/17 17:41 Range/Units White Blood Count 11.84 4.8-10.8 K/uL Red Blood Count 4.48 4.2-5.4 M/uL Hemoglobin 12.4 12.0-16.0 g/dL Hematocrit 37.4 37-47 % Mean Corpuscular Volume 83.5 80-100 fL Mean Corpuscular Hemoglobin 27.7 25-34 pg Mean Corpuscular Hemoglobin Concent 33.2 32-36 g/dl Platelet Count 147 130-400 K/uL Mean Platelet Volume 9.2 7.4-10.4 fL RDW Standard Deviation 40.3 36.4-46.3 fL RDW Coefficient of Variation 13.3 11.5-14.5 % Nucleated RBC Absolute Count (auto) 0.03 0-0 K/uL Neutrophils % (Manual) 76.4 % Lymphocytes % (Manual) 14.8 % Monocytes % (Manual) 6.1 % Basophils % (Manual) 0.9 % Metamyelocytes % 0.9 % Myelocytes % 0.9 % Nucleated Red Blood Cells % 0.2 % Neutrophils # (Manual) 9.05 1.4-6.5 K/uL Total Absolute Neutrophils 9.05 1.4-6.5 K/uL Lymphocytes # (Manual) 1.75 1.2-3.4 K/uL Total Absolute Lymphocytes 1.75 1.2-3.4 K/uL Monocytes # (Manual) 0.72 0.11-0.59 K/uL Basophils # (Manual) 0.11 0-0.2 K/uL Metamyelocytes # 0.11 0-0 K/uL Myelocytes # 0.11 0-0 K/uL Red Blood Cell Morphology Unremarkable Erythrocyte Sedimentation Rate 5 0-21 mm/hr Prothrombin Time 12.3 9.0-12.0 SECONDS Prothromb Time International Ratio 1.1 0.9-1.1 Activated Partial Thromboplast Time 24.5 21.0-31.0 SECONDS Partial Thromboplastin Ratio 0.9 Sodium Level 134 136-145 mmol/L Potassium Level 3.4 3.5-5.1 mmol/L Chloride Level 97 98-107 mmol/L Carbon Dioxide Level 31 21-32 mmol/L Anion Gap 6.0 3-11 mmol/L Blood Urea Nitrogen 14 7-18 mg/dl Creatinine 0.57 0.60-1.20 mg/dl Est Creatinine Clear Calc Drug Dose 91.8 ml/min Estimated GFR () 117.6 Estimated GFR (Non- 101.5 BUN/Creatinine Ratio 24.3 10-20 Random Glucose 97 70-99 mg/dl Lactic Acid Level 0.6 0.4-2.0 mmol/L Calcium Level 8.7 8.5-10.1 mg/dl Magnesium Level 2.2 1.8-2.4 mg/dl Total Bilirubin 0.6 0.2-1 mg/dl Direct Bilirubin 0.1 0-0.2 mg/dl Aspartate Amino Transf (AST/SGOT) 40 15-37 U/L Alanine Aminotransferase (ALT/SGPT) 30 12-78 U/L Alkaline Phosphatase 1101 45-117 U/L Total Creatine Kinase 93 26-192 U/L C-Reactive Protein 4.42 0-0.29 mg/dl Total Protein 6.7 6.4-8.2 gm/dl Albumin 3.4 3.4-5.0 gm/dl Lipase 208 73-393 U/L Thyroid Stimulating Hormone (TSH) 1.700 0.300-4.500 uIu/ml Urine Color ORANGE Urine Appearance CLOUDY CLEAR Urine pH 5.0 4.5-7.5 Urine Specific [place] 1.023 1.000-1.030 Urine Protein NEG NEG Urine Glucose (UA) NEG NEG Urine Ketones TRACE NEG Urine Occult Blood 1+ NEG Urine Nitrite NEG NEG Urine Bilirubin NEG NEG Urine Urobilinogen NEG NEG Urine Leukocyte Esterase MODERATE NEG Urine WBC (Auto) 10-30 0-5 /hpf Urine RBC (Auto) 0-4 0-4 /hpf Urine Hyaline Casts (Auto) 10-30 0-5 /lpf Urine Epithelial Cells (Auto) 20-30 0-5 /lpf Urine Bacteria (Auto) NEG NEG Urine Crystals CALCIUM OXALATE NONE PRSENT Microbiology Results 01/29/17 Urine Culture, Received Pending Diagnostic Radiology IMPRESSION: MRI Lumbar spine 1. Innumerable foci of marrow replacement within visualized skeletal structures consistent with a neoplastic process such as metastatic disease, lymphoma or less likely myeloma. Metastatic disease is favored. Findings discussed with Dr. Lopez at time of dictation. 2. Mild multilevel degenerative disc disease. No disc herniation. Patent central canal and neural foramen. No intracanalicular mass or pathologic enhancement. 3. Small amount of ascites within the pelvis. CT abdomen, pelvis 1. Mild infiltrative changes of the root of the mesentery with a multiplicity of very small reactive mesenteric as well as pelvic nodes. 2. Nodular appearance to the right lateral pelvic sidewall with nodes or soft tissue deposits measuring up to 2.4 cm. 3. Moderate free fluid within the pelvic cul-de-sac. 4. Diagnostic considerations given the patient's history must include endometriosis, although if findings do not resolve an entity such as lymphomatous type change must be consideration. Impression Assessment and Plan 61 y/o F presenting with 2-3 months of vague symptoms including progressive lower back pain, B/L leg pain, night sweats and a degree of weight loss. A few weeks ago she was seen by a corn detasseler machine operator for frequent bruising which was attributed ultimately to NSAID use. Her pain over the last 2 weeks has become severe and intractable and she was sent to the hospital by her MD for further evaluation and pain control. On 01/[address] of the abdomen/pelvis which revealed multiple small LNs and a 2.4cm soft tissue deposit read as possible inflammatory changes although lymphoma could not be ruled out. She had an MRI of her lumbar spine in the ER prior to admission which showed multiple foci of marrow replacement consistent with a neoplastic process again sighting lymphoma as a reasonable possibility. She is admitted primarily for pain control. She has been informed with family present that she may have an active neoplastic process and that we will be consulting hematology to advise on further workup in isolating a primary source to be followed by staging and prognostication. Pts findings are most consistent with lymphoma or metastasis from an unknown primary - myeloma would be less likely. We have consulted Hematology to advise on further diagnostic evaluation. Regarding her pain, we have started her on scheduled Oxycodone and Morphine for breakthrough which may allow us to calculate her outpt requirements prior to DC. Full code - Heparin prophylaxis Total time for this admit including review of labs, meds, EKG - discussion with pt, spouse and ER attending 38 min Level of Care Med/Surg Resuscitation Status FULL RESUSCITATION VTE Prophylaxis Given or contraindicated: Unfractionated heparin SQ
[2017-01-29] MEDS ORDERED: KETOROLAC TROMETHAMINE 30 MG/ML VIAL IV PRN (21:45)
[2017-01-29 22:00] VITALS: BP 133/76; PULSE 95; TEMP 36.8; O2SAT 91
[2017-01-29] MEDS ORDERED: D5NSS + 20MEQ KCL 1,000 ML IV SCH (22:30)
[2017-01-29] MEDS: HYDROmorphone INJ 1 MG/ML SYR IV PRN (22:58)
[2017-01-29] MEDS: CEFTRIAXONE SOD INJ 1 GM in DEXTROSE 5% ADD-VANTAGE 50ML 50 ML IV SCH (23:08)
[2017-01-29] MEDS: DOCUSATE SODIUM 100 MG CAP PO SCH (23:18)
[2017-01-29] MEDS: BACLOFEN 10 MG TAB PO SCH (23:19)
[2017-01-29] MEDS: OXYCODONE/ACETAMINOPHEN 10/325MG TAB PO SCH (23:19)
[2017-01-29] MEDS: HEPARIN SOD 5000 UNIT/0.5 ML CARP SQ SCH (23:23)
[2017-01-29] MEDS: GABAPENTIN 100 MG CAP PO SCH (23:24)
[2017-01-30] VITALS (8 sets, daily range): BP systolic 96–133; BP diastolic 60–76; PULSE 88–97; TEMP 36.8–37.6; O2SAT 91–97; Ht 162.6 cm; Wt 61.4 kg
[2017-01-30] MEDS: HYDROmorphone INJ 1 MG/ML SYR IV PRN ×11 (01:19→23:21)
[2017-01-30] MEDS ORDERED: IV FLUIDS COMPLETED PRN (02:15)
[2017-01-30] MEDS: OXYCODONE/ACETAMINOPHEN 10/325MG TAB PO SCH ×2 (03:45→10:25)
[2017-01-30] MEDS: HEPARIN SOD 5000 UNIT/0.5 ML CARP SQ SCH ×3 (06:01→21:00)
[2017-01-30] MEDS: GABAPENTIN 100 MG CAP PO SCH ×3 (08:16→20:54)
[2017-01-30] MEDS: BACLOFEN 10 MG TAB PO SCH ×2 (08:17→20:55)
[2017-01-30] MEDS: DOCUSATE SODIUM 100 MG CAP PO SCH ×2 (08:17→20:56)
--- NOTE | 2017-01-30 09:33 | Oncology Consultation ---
Oncology/Heme Consultation Date of Consultation: January 30, 2017. Attending Physician: Tiffany Khanna MD Reason for Consultation: Probable bony involvement with a neoplastic process History of Present Illness Ms. Vásquez is a 61-year-old postmenopausal female that presents with progressive bone pain primarily in her lower back for the past few weeks. She denies significant weight loss however she states her appetite has been decreasing. She denies nausea she denies any fever or chills. Some this pain has been in the lower pelvic area more recently. Recent scans have demonstrated changes within the abdomen that could be consistent with a neoplastic process involving lymph nodes and or on review today perhaps a appendiceal issue. Both films of also demonstrated diffuse changes consistent with a neoplastic process. She was seen in our clinic last Friday for platelet dysfunction presumably secondary to nonsteroidals that she has been using. She denies any blood in her stool. Colonoscopy she states 7 years ago was unremarkable. Past Medical/Surgical History Medical Problems: (1) Low back pain Status: Acute (2) Lower back pain Status: Acute (3) Malignancy Status: Acute (4) Pelvic pain Status: Acute Family History Colon carcinoma in a grandmother on the paternal side as well as an aunt again on the paternal side Social History Smoking Status: Never Smoker Alcohol Use: none Marital Status: Housing Status: lives with family Occupation Status: employed Allergies Coded Allergies: Aspirin (Unverified Allergy, Unknown, ALTERED MENTAL STATUS, 01/29/17) Caffeine (Unverified Allergy, Unknown, ALTERED MENTAL STATUS, 01/29/17) Naproxen (Unverified Allergy, Unknown, UNKNOWN, 01/29/17) Orphenadrine (Unverified Allergy, Unknown, ALTERED MENTAL STATUS, 01/29/17) Salicylates (Unverified Allergy, Unknown, ALTERED MENTAL STATUS, 01/29/17) Uncoded Allergies: XANTHINE (Allergy, Unknown, ALTERED MENTAL STATUS, 10/13/09) Home Medications Scheduled Baclofen (Baclofen), 5 MG PO BID Cholecalciferol (Vitamin D3), 1,000 UNIT PO BID Cyanocobalamin (Vitamin B-12), 1,000 MCG PO BID Docusate Sodium (Docusate Sodium), 100 CAP PO BID Gabapentin (Neurontin), 100 MG PO BID Gabapentin (Neurontin), 200 MG PO HS Scheduled PRN Tramadol (Ultram), 50-100 MG PO Q6H PRN for Pain Current Inpatient Medications Current Inpatient Medications Medications (Trade) Dose Ordered Sig/[place] Route Start Time Stop Time Status Last Admin Dose Admin Gadobutrol (Gadavist) 6 mmol UD PRN IV 01/29/17 19:45 02/02/17 19:44 Baclofen (Lioresal Tab) 5 mg BID PO 01/29/17 21:00 02/28/17 20:59 01/30/17 08:17 5 MG Docusate Sodium (coLACE CAP) 100 mg BID PO 01/29/17 21:00 02/28/17 20:59 01/30/17 08:17 100 MG Gabapentin (Neurontin Cap) 100 mg BID@0800,1200 PO 01/30/17 08:00 03/01/17 07:59 01/30/17 08:16 100 MG Gabapentin (Neurontin Cap) 200 mg HS PO 01/29/17 21:00 02/28/17 20:59 01/29/17 23:24 200 MG Heparin Sodium (Porcine) (Heparin Sq 5000 Unit/0.5ml) 5,000 unit Q8 SQ 01/29/17 22:00 02/28/17 21:59 01/30/17 06:01 5,000 UNIT Acetaminophen (Tylenol Tab) 650 mg Q4H PRN PO 01/29/17 20:45 02/28/17 20:44 Al Hydrox/Mg Hydrox/Simethicone (Maalox Max Susp) 15 ml Q4H PRN PO 01/29/17 20:45 02/28/17 20:44 Magnesium Hydroxide (Milk Of Magnesia Susp) 30 ml Q6H PRN PO 01/29/17 20:45 02/28/17 20:44 Polyethylene (Miralax Powder Packet) 17 gm DAILY PRN PO 01/29/17 20:45 02/28/17 20:44 Zolpidem Tartrate (Ambien Tab) 5 mg HSZ PRN PO 01/29/17 20:45 02/28/17 20:44 Ondansetron HCl (Zofran Inj) 4 mg Q6H PRN IV 01/29/17 20:45 02/28/17 20:44 Ioversol (Optiray 320) 111 ml UD PRN IV 01/29/17 21:00 02/02/17 20:59 Miscellaneous (Iv Fluids Completed) 1 ea PRN PRN N/A 01/29/17 21:30 01/29/18 21:29 Ketorolac Tromethamine (Toradol Inj) 30 mg HS PRN IV 01/29/17 21:45 02/03/17 21:44 Oxycodone/ Acetaminophen 1 tab 1 tab Q6H PO 01/29/17 22:15 02/12/17 22:14 01/30/17 03:45 1 TAB Ceftriaxone Sodium/Dextrose (Rocephin Inj/ Dextrose Add-[place] 50ML) 50 ml @ 100 mls/hr Q24H IV 01/29/17 23:00 02/03/17 22:59 01/29/17 23:08 100 MLS/HR Hydromorphone HCl (Dilaudid Inj) 0.5 mg Q2H PRN IV 01/29/17 22:45 02/12/17 22:44 01/30/17 08:24 0.5 MG Review of Systems Constitutional: Negative for weight loss, night sweats, or fever Eyes: Negative for event change of vision ENT: Negative for epistaxis, nasal discharge, sore throat, or deafness Cardiovascular: Negative for chest pain, palpitations, dizziness, diaphoresis Respiratory: Negative for new shortness of breath,hemoptysis, or purulent cough. She states she has a cold now Gastrointestinal: Negative for diarrhea, hematemesis, melena, nausea, vomiting , or dyspepsia Integumentary (skin): Negative for rash or jaundice discoloration Genitourinary: Negative for urinary frequency, hematuria, or dysuria Neurological: Negative for weakness, seizure activity, headache, or dizziness Lymphatic/Hematologic: Negative for petechiae, bleeding or new adenopathy Musculoskeletal: Back pain as reviewed particularly lower back Allergic/Immunologic: Negative for unusual rash or pruritis. Physical Exam Date Time Temp Pulse Resp B/P Pulse Ox O2 Delivery O2 Flow Rate FiO2 01/30/17 07:33 37.3 16 102/63 95 Room Air 01/30/17 06:04 91 97/61 01/30/17 05:05 36.9 97 19 104/68 91 Room Air 01/30/17 00:25 36.8 95 20 133/76 Room Air 01/29/17 22:00 36.8 95 20 133/76 91 Room Air 01/29/17 21:41 36.7 98 18 128/76 95 01/29/17 21:32 128/76 95 Room Air 01/29/17 20:08 98 18 131/67 95 Room Air 01/29/17 19:32 116/94 01/29/17 16:25 36.9 82 18 92/58 95 Room Air Constitutional: vitals are stable. Eyes: Eyes are KIARRA EOMI without conjuctival erythema or icterus. ENT: External examination was negative for masses. Neck: Negative for masses or palpable thyromegaly Respiratory: Lung sounds were generally clear bilaterally Cardiovascular: Heart was RRR without significant murmur, gallops aoe rubs Gastrointestinal: No palpable hepatic or splenomegaly. The abdomen was soft with normal bowel sounds. Lymphatic system: there was no palpable peripheral lymphadenopathy Musculoskeletal System: The musculoskeletal system seemed concordant with age. Skin: The skin was negative for jaundice. Some quite small ecchymotic areas over the abdomen Neurologic exam: The exam was negative for any focal findings. Deep tendon reflexes were equal and symmetrical. Psychiatric exam: Was essentially negative with normal mood and effect. Breast exam: Done with patient permission was negative for palpable masses or corollary supraclavicular or axillary palpable adenopathy. Exam was witnessed by either a relative, weld inspector, or clinic staff. Extremities: Negative for edema or erythema Laboratory Results Last 24 Hours Test 01/29/17 17:29 01/29/17 17:41 White Blood Count 11.84 K/uL Red Blood Count 4.48 M/uL Hemoglobin 12.4 g/dL Hematocrit 37.4 % Mean Corpuscular Volume 83.5 fL Mean Corpuscular Hemoglobin 27.7 pg Mean Corpuscular Hemoglobin Concent 33.2 g/dl Platelet Count 147 K/uL Mean Platelet Volume 9.2 fL RDW Standard Deviation 40.3 fL RDW Coefficient of Variation 13.3 % Nucleated RBC Absolute Count (auto) 0.03 K/uL Neutrophils % (Manual) 76.4 % Lymphocytes % (Manual) 14.8 % Monocytes % (Manual) 6.1 % Basophils % (Manual) 0.9 % Metamyelocytes % 0.9 % Myelocytes % 0.9 % Nucleated Red Blood Cells % 0.2 % Neutrophils # (Manual) 9.05 K/uL Total Absolute Neutrophils 9.05 K/uL Lymphocytes # (Manual) 1.75 K/uL Total Absolute Lymphocytes 1.75 K/uL Monocytes # (Manual) 0.72 K/uL Basophils # (Manual) 0.11 K/uL Metamyelocytes # 0.11 K/uL Myelocytes # 0.11 K/uL Red Blood Cell Morphology Unremarkable Erythrocyte Sedimentation Rate 5 mm/hr Prothrombin Time 12.3 SECONDS Prothromb Time International Ratio 1.1 Activated Partial Thromboplast Time 24.5 SECONDS Partial Thromboplastin Ratio 0.9 Sodium Level 134 mmol/L Potassium Level 3.4 mmol/L Chloride Level 97 mmol/L Carbon Dioxide Level 31 mmol/L Anion Gap 6.0 mmol/L Blood Urea Nitrogen 14 mg/dl Creatinine 0.57 mg/dl Est Creatinine Clear Calc Drug Dose 91.8 ml/min Estimated GFR () 117.6 Estimated GFR (Non- 101.5 BUN/Creatinine Ratio 24.3 Random Glucose 97 mg/dl Lactic Acid Level 0.6 mmol/L Calcium Level 8.7 mg/dl Magnesium Level 2.2 mg/dl Total Bilirubin 0.6 mg/dl Direct Bilirubin 0.1 mg/dl Aspartate Amino Transf (AST/SGOT) 40 U/L Alanine Aminotransferase (ALT/SGPT) 30 U/L Alkaline Phosphatase 1101 U/L Total Creatine Kinase 93 U/L C-Reactive Protein 4.42 mg/dl Total Protein 6.7 gm/dl Albumin 3.4 gm/dl Lipase 208 U/L Thyroid Stimulating Hormone (TSH) 1.700 uIu/ml Urine Color ORANGE Urine Appearance CLOUDY Urine pH 5.0 Urine Specific [place] 1.023 Urine Protein NEG Urine Glucose (UA) NEG Urine Ketones TRACE Urine Occult Blood 1+ Urine Nitrite NEG Urine Bilirubin NEG Urine Urobilinogen NEG Urine Leukocyte Esterase MODERATE Urine WBC (Auto) 10-30 /hpf Urine RBC (Auto) 0-4 /hpf Urine Hyaline Casts (Auto) 10-30 /lpf Urine Epithelial Cells (Auto) 20-30 /lpf Urine Bacteria (Auto) NEG Urine Crystals CALCIUM OXALATE Assessment & Plan CT scan as well as MRI of the lumbar spine was reviewed. All indicative of a neoplastic process significantly involving a bone. A Chest x-ray should be done. Alkaline phosphatase is significantly elevated. I explained a bone marrow procedure to her and received consent. A bone marrow biopsy and aspirate attempt was done from the patient's right posterior iliac crest using 1% local lidocaine anesthetic. The patient tolerated the procedure well. An aspirate could not be obtained (dry tap). A substantial bone marrow bone biopsy was obtained. We'll await those results. Otherwise focus care for now is on pain control.
--- NOTE | 2017-01-30 10:50 | Hospitalist Progress Note ---
Hospitalist Progress Note Date of Service January 30, 2017. (Beba Bynum ., PA-C) Subjective Pt evaluation today including: conversation w/ patient, conversation w/ family ( at bedside), physical exam, chart review, lab review, review of studies , review of inpatient medication list Pain: 6/10 dull pain in lower back, bilateral hips PO Intake: Tolerating PO diet but decreased appetite Voiding: no voiding problems Patient states that she feels very groggy, weak and fatigued due to the pain medications. She states that her pain is largely unchanged though, and currently complains of a 6/10 dull pain in her lower back and bilateral hips. The pain is worse with any movement or change in position, and the pain can become sharp and more severe at times. She also sometimes has pain in her upper arms bilaterally but states that her arms are not currently bothering her too much. She also reports nausea but denies any vomiting recently. The patient complains of a productive cough that started a few days ago. She states that she might feel slightly short of breath. She also reports feeling housekeeping lead her face but denies chills or sweats. The patient denies fevers, chills , sweats, chest pain, palpitations, claudication, wheezing, vomiting, abdominal pain, dysuria, hematuria, urinary retention, paralysis, acute numbness and tingling. Additional Comments: See HPI for pertinent positives and negatives. All other systems reviewed and negative. (Beba Bynum ., PA-C) Objective Vital Signs Date Time Temp Pulse Resp B/P Pulse Ox O2 Delivery O2 Flow Rate FiO2 01/30/17 08:00 Room Air 01/30/17 07:33 37.3 16 102/63 95 Room Air 01/30/17 06:04 91 97/61 01/30/17 05:05 36.9 97 19 104/68 91 Room Air 01/30/17 00:25 36.8 95 20 133/76 Room Air 01/29/17 22:00 36.8 95 20 133/76 91 Room Air 01/29/17 21:41 36.7 98 18 128/76 95 01/29/17 21:32 128/76 95 Room Air 01/29/17 20:08 98 18 131/67 95 Room Air 01/29/17 19:32 116/94 01/29/17 16:25 36.9 82 18 92/58 95 Room Air (Beba Bynum ., PA-C) Physical Exam General Appearance: WD/WN, no apparent distress, + pertinent finding (lethargic ) Eyes: normal inspection, PERRL, EOMI ENT: normal ENT inspection, hearing grossly normal, pharynx normal, + pertinent finding (dry oral mucosa) Neck: supple, no JVD, trachea midline Respiratory/Chest: lungs clear, normal breath sounds, no respiratory distress Cardiovascular: regular rate, rhythm, no gallop, no murmur Abdomen: normal bowel sounds, non tender, soft Extremities: normal range of motion, normal inspection, no pedal edema, + pertinent finding (lumbar spine TTP. Biopsy site TTP. Hips TTP bilaterally, and pt reports pain in back when hips are palpated. ) Neurologic/Psychiatric: normal mood/affect, oriented x 3, + pertinent finding ( pt lethargic. has some difficulty answering questions but after some time does answer appropriately) Skin: normal color, warm/dry, no rash (Beba Bynum ., PA-C) Laboratory Results Last 24 Hours Test 01/29/17 17:29 01/29/17 17:41 01/30/17 09:34 White Blood Count 11.84 K/uL Red Blood Count 4.48 M/uL Hemoglobin 12.4 g/dL Hematocrit 37.4 % Mean Corpuscular Volume 83.5 fL Mean Corpuscular Hemoglobin 27.7 pg Mean Corpuscular Hemoglobin Concent 33.2 g/dl Platelet Count 147 K/uL Mean Platelet Volume 9.2 fL RDW Standard Deviation 40.3 fL RDW Coefficient of Variation 13.3 % Nucleated RBC Absolute Count (auto) 0.03 K/uL Neutrophils % (Manual) 76.4 % Lymphocytes % (Manual) 14.8 % Monocytes % (Manual) 6.1 % Basophils % (Manual) 0.9 % Metamyelocytes % 0.9 % Myelocytes % 0.9 % Nucleated Red Blood Cells % 0.2 % Neutrophils # (Manual) 9.05 K/uL Total Absolute Neutrophils 9.05 K/uL Lymphocytes # (Manual) 1.75 K/uL Total Absolute Lymphocytes 1.75 K/uL Monocytes # (Manual) 0.72 K/uL Basophils # (Manual) 0.11 K/uL Metamyelocytes # 0.11 K/uL Myelocytes # 0.11 K/uL Red Blood Cell Morphology Unremarkable Erythrocyte Sedimentation Rate 5 mm/hr Prothrombin Time 12.3 SECONDS Prothromb Time International Ratio 1.1 Activated Partial Thromboplast Time 24.5 SECONDS Partial Thromboplastin Ratio 0.9 Sodium Level 134 mmol/L Potassium Level 3.4 mmol/L Chloride Level 97 mmol/L Carbon Dioxide Level 31 mmol/L Anion Gap 6.0 mmol/L Blood Urea Nitrogen 14 mg/dl Creatinine 0.57 mg/dl Est Creatinine Clear Calc Drug Dose 91.8 ml/min Estimated GFR () 117.6 Estimated GFR (Non- 101.5 BUN/Creatinine Ratio 24.3 Random Glucose 97 mg/dl Lactic Acid Level 0.6 mmol/L Calcium Level 8.7 mg/dl Magnesium Level 2.2 mg/dl Total Bilirubin 0.6 mg/dl Direct Bilirubin 0.1 mg/dl Aspartate Amino Transf (AST/SGOT) 40 U/L Alanine Aminotransferase (ALT/SGPT) 30 U/L Alkaline Phosphatase 1101 U/L Total Creatine Kinase 93 U/L C-Reactive Protein 4.42 mg/dl Total Protein 6.7 gm/dl Albumin 3.4 gm/dl Lipase 208 U/L Thyroid Stimulating Hormone (TSH) 1.700 uIu/ml Urine Color ORANGE Urine Appearance CLOUDY Urine pH 5.0 Urine Specific [place] 1.023 Urine Protein NEG Urine Glucose (UA) NEG Urine Ketones TRACE Urine Occult Blood 1+ Urine Nitrite NEG Urine Bilirubin NEG Urine Urobilinogen NEG Urine Leukocyte Esterase MODERATE Urine WBC (Auto) 10-30 /hpf Urine RBC (Auto) 0-4 /hpf Urine Hyaline Casts (Auto) 10-30 /lpf Urine Epithelial Cells (Auto) 20-30 /lpf Urine Bacteria (Auto) NEG Urine Crystals CALCIUM OXALATE (Beba Bynum, STACYC) Assessment and Plan 61 y/o female with a history of peripheral neuropathy who presents with worsening back/bone pain over the last few months and night sweats. The patient 's pain has become intractable despite her home pain mediation regimen. She has been seen by heme/onc in the past due to bruising which was attributed to her NSAID use, as pt reports using Advil often for her pain in addition to her Tramadol. On 01/[address] of the abdomen/pelvis which revealed multiple small LNs and a 2.4cm soft tissue deposit read as possible inflammatory changes although lymphoma could not be ruled out. She had an MRI of her lumbar spine in the ER prior to admission which showed multiple foci of marrow replacement consistent with a neoplastic process again citing lymphoma as a reasonable possibility. Lymphoma vs bone metastasis from unknown primary malignancy -Admitted to med/surg -Consult heme/onc, appreciate recs: Bone biopsy/aspiration was attempted. Biopsy was successful but unable to aspirate. Recommend obtaining CXR, LDH and fecal occult blood. Continue pain control -Continue Percocet 10/325 mg PO q6h prn pain, Dilaudid 0.5 mg IV q2h prn pain, and Toradol prn -Continue home baclofen 5 mg PO BID and gabapentin 100 mg PO BID and gabapentin 200 mg PO qhs GI prophylaxis -Maalox Max 15 mL PO q4h prn dyspepsia -Milk of magnesia 30 mL PO q6h prn constipation -Miralax 17 gm PO qd prn constipation -Zofran 4 mg IV q6h prn nausea -Continue home Colace 100 mg PO BID DVT prophylaxis -Heparin 5000 units SC q8h Code Status -Level I, FULL RESUSCITATION STATUS (Beba Bynum, OLAYINKA) Reviewed: Pt Seen/Exam by Me (Tiffany Khanna MD) History Physician Tool Setter Supervision Note: I interviewed and examined the patient. Discussed with OBIE Bynum and agree with findings and plan as documented in the note. Any exceptions or clarifications are listed here: Pt still with pain but much improved control since admission, was bale to sleep last night. Pain is in lower back and pelvic girdle. No exposure to homeless or prisoners but did repeatedly. No foreign travel. No h/o chemical exposures. Symptoms have rapidly progressed over the last 2 weeks. Last colonoscopy was 7 yrs ago. Is UTD on mammogram. Had an endometrial ablation 6-7 yrs ago and no vag bleeding since then, last pap normal 02/2016. Vitals reviewed sleeping but wakes up to answer questions, NAD EOMI, PERRL, OP clear, neck supple RRR no mgr CTAB no wcr Abd soft NT ND +BS, no masses or hernias Ext+TTP in pelvic girdle and lower back Neuro: no weakness in lower extremities No edema Skin no rashes or bruising Lymph-no ROXANNE palpable in neck, supraclavicular,axilllary, or inguinal regions 61 yo female here with intractable back pain after 2-3 weeks of rapidly progressing lower back pain and pelvic girdle pain with some arm pain, night sweats, weigh tloss and poor appetite, with elevated Alk Phos and inumerable bony lesions seen on MRI Lumbar spine. CXR with osteoblastic lesions in ribs and spine but lungs clear. CT abd/pel with mild ROXANNE and one 2.4 cm pelvic sidewall mass. Recent brain MRI with scattered nonspecific foci chronic small vessel dz vs demyelinating dz. ESR normal, Crp elevated, Alk phos now >1000 -highly suspicious for malignancy but could be TB, sarcoidosis, infection otherwise, Lyme -check BALBIR level, 1-25 Vit D for sarcoid -check TB Gold for TB -check Lyme -f/u BMBx result and discuss case with Hem/Onc and Gen Surgery in case needs laparoscopy for LN sampling vs IR for CT-guided LN biopsy -avoid NSAIDs for pain given recent bruising Documented By: Tiffany Khanna (Tiffany Khanna MD)
--- NOTE | 2017-01-30 11:12 | DIAGNOSTIC IMAGING REPORT ---
CHEST 2 VIEWS ROUTINE HISTORY: Bony pain and abnormal abdominal CT and bone images COMPARISON: None. FINDINGS: No pleural effusions. No pneumothorax. The heart is normal in size. No focal lung consolidations to suggest pneumonia. No evidence for pulmonary edema. Mild diffuse interstitial thickening. A few scattered osteoblastic lesion seen within the thoracic spine and ribs. IMPRESSION: 1. A few scattered osteoblastic lesions within the spine and ribs. 2. Mild diffuse interstitial thickening which is likely chronic. Electronically signed by: Maxi Golden M.D. 01/30/2017 11:11 AM Dictated Date/Time: 01/30/2017 11:08 AM
[2017-01-30 15:30] LABS: LYME DISEASE AB IGG NEG (NEG); LYME DISEASE AB IGM NEG (NEG)
[2017-01-30] MEDS: OXYCODONE/ACETAMINOPHEN 10/325MG TAB PO PRN (16:07)
[2017-01-30] MEDS: ONDANSETRON INJ 2 MG/ML 2 ML VIAL IV PRN (16:07)
[2017-01-30] MEDS: CEFTRIAXONE SOD INJ 1 GM in DEXTROSE 5% ADD-VANTAGE 50ML 50 ML IV SCH (23:26)
[2017-01-31] MEDS: OXYCODONE/ACETAMINOPHEN 10/325MG TAB PO PRN ×4 (00:29→23:09)
[2017-01-31 05:15] VITALS: BP 106/64; PULSE 94; TEMP 37; O2SAT 93
[2017-01-31] MEDS: HYDROmorphone INJ 1 MG/ML SYR IV PRN ×4 (05:15→21:52)
[2017-01-31] MEDS: HEPARIN SOD 5000 UNIT/0.5 ML CARP SQ SCH ×3 (05:15→22:00)
[2017-01-31 07:45] VITALS: BP 104/66; PULSE 92; TEMP 37.2; O2SAT 92
[2017-01-31] MEDS: BACLOFEN 10 MG TAB PO SCH ×2 (08:46→21:08)
[2017-01-31] MEDS: DOCUSATE SODIUM 100 MG CAP PO SCH ×2 (08:46→21:07)
[2017-01-31] MEDS: GABAPENTIN 100 MG CAP PO SCH ×3 (08:46→21:07)
[2017-01-31 10:35] LABS: HEMATOCRIT 32.6 % (37-47); MEAN CELL VOLUME 83.4 fL (80-100); MEAN CORPUSCULAR HEMOGLOBIN 27.6 pg (25-34); MEAN CORPUSCULAR HGB CONC 33.1 g/dl (32-36); MEAN PLATELET VOLUME 9.1 fL (7.4-10.4); PLATELET COUNT 129 K/uL (130-400); RED BLOOD COUNT 3.91 M/uL (4.2-5.4); WHITE BLOOD COUNT 10.01 K/uL (4.8-10.8)
[2017-01-31 10:46] LABS: INR 1.1 (0.9-1.1); PARTIAL THROMBOPLASTIN RATIO 1.3; PROTHROMBIN TIME (PATIENT) 12.1 SECONDS (9.0-12.0)
[2017-01-31] MEDS: ONDANSETRON INJ 2 MG/ML 2 ML VIAL IV PRN (10:55)
[2017-01-31 10:58] LABS: BASO % 0.4 %; BASO ABS # 0.04 K/uL (0-0.2); COMPLETE YES; EOS % 2.6 %; IG% 6.7 %; LYMPH % 15.2 %; LYMPH ABS # 1.52 K/uL (1.2-3.4); MONO % 7.2 %; NEUT % 67.9 %
[2017-01-31 11:02] LABS: BUN/CREATININE RATIO 20.9 (10-20); CALCIUM 8.3 mg/dl (8.5-10.1); CREATININE 0.45 mg/dl (0.60-1.20); MAGNESIUM 2.2 mg/dl (1.8-2.4); POTASSIUM 3.6 mmol/L (3.5-5.1)
[2017-01-31 11:10] VITALS: BP 108/68; PULSE 87; TEMP 37; O2SAT 94
[2017-01-31 11:42] LABS: PFT COL EPI 179 SECONDS (80-184)
[2017-01-31] MEDS ORDERED: NURSING VERBAL MED ORDER ONE ×2 (11:45→18:00)
--- NOTE | 2017-01-31 12:10 | Hematology/Oncology Prog Note ---
Hematology/Onc Progress Note Date of Service January 31, 2017. Diagnoses Metastatic signet ring carcinoma Medications Medications Administered Medications (Trade) Dose Ordered Sig/[place] Route Start Time Stop Time Status Last Admin Dose Admin Sodium Chloride 500 ml @ 999 mls/hr Q31M STAT IV 01/29/17 17:11 01/29/17 17:41 DC 01/29/17 17:36 999 MLS/HR Sodium Chloride (Nss 1000ml) 1,000 ml @ 200 mls/hr Q5H STAT IV 01/29/17 17:11 01/29/17 22:05 DC 01/29/17 17:11 200 MLS/HR Hydromorphone HCl 0.5 mg 0.5 mg Q15M PRN IV 01/29/17 17:15 01/29/17 22:05 DC 01/29/17 20:39 0.5 MG Promethazine HCl/ Sodium Chloride (Phenergan Inj/ Nss 50ml) 50.5 ml @ 202 mls/hr Q6H PRN IV 01/29/17 18:00 01/30/17 03:24 DC 01/29/17 18:03 202 MLS/HR Baclofen (Lioresal Tab) 5 mg BID PO 01/29/17 21:00 02/28/17 20:59 01/31/17 08:46 5 MG Docusate Sodium (coLACE CAP) 100 mg BID PO 01/29/17 21:00 02/28/17 20:59 01/31/17 08:46 100 MG Gabapentin (Neurontin Cap) 100 mg BID@0800,1200 PO 01/30/17 08:00 03/01/17 07:59 01/31/17 08:46 100 MG Gabapentin 200 mg 200 mg HS PO 01/29/17 21:00 02/28/17 20:59 01/30/17 20:54 200 MG Potassium Chloride/Dextrose/ Sod Cl (D5nss + 20meq KCl) 1,000 ml @ 150 mls/hr Q6H40M IV 01/29/17 22:30 01/30/17 05:09 DC 01/29/17 23:09 150 MLS/HR Heparin Sodium (Porcine) (Heparin Sq 5000 Unit/0.5ml) 5,000 unit Q8 SQ 01/29/17 22:00 02/28/17 21:59 01/31/17 05:15 5,000 UNIT Polyethylene (Miralax Powder Packet) 17 gm DAILY PRN PO 01/29/17 20:45 02/28/17 20:44 01/31/17 08:54 17 GM Ondansetron HCl (Zofran Inj) 4 mg Q6H PRN IV 01/29/17 20:45 02/28/17 20:44 01/31/17 10:55 4 MG Oxycodone/ Acetaminophen 1 tab 1 tab Q6H PO 01/29/17 22:15 01/30/17 11:48 DC 01/30/17 10:25 1 TAB Ceftriaxone Sodium/Dextrose (Rocephin Inj/ Dextrose Add-Revelo 50ML) 50 ml @ 100 mls/hr Q24H IV 01/29/17 23:00 02/03/17 22:59 01/30/17 23:26 100 MLS/HR Hydromorphone HCl (Dilaudid Inj) 0.5 mg Q2H PRN IV 01/29/17 22:45 02/12/17 22:44 01/31/17 10:58 0.5 MG Oxycodone/ Acetaminophen (Percocet 10-325MG Tab) 1 tab Q6H PRN PO 01/30/17 16:15 02/13/17 16:14 01/31/17 06:22 1 TAB Subjective She seems a little more comfortable today. It[birth year] birthday. Her Rodri is with her. Review of Systems: Constitutional: Negative for night sweats, or fever Eyes: Negative for event change of vision ENT: Negative for epistaxis, nasal discharge, sore throat, or deafness Cardiovascular: Negative for chest pain, palpitations, dizziness, diaphoresis Respiratory: Negative for new shortness of breath,hemoptysis, or purulent cough Gastrointestinal: Negative for diarrhea, hematemesis, melena, she does have some mild nausea Integumentary (skin): Negative for rash or jaundice discoloration Neurological: Negative for weakness, seizure activity, headache, or dizziness Lymphatic/Hematologic: Negative for petechiae, bleeding or new adenopathy Musculoskeletal: Negative for new joint or back pain Allergic/Immunologic: Negative for unusual rash or pruritis. Vital Signs Vital Signs Past 12 Hours Date Time Temp Pulse Resp B/P Pulse Ox O2 Delivery O2 Flow Rate FiO2 01/31/17 11:10 37.0 87 16 108/68 94 Room Air 01/31/17 08:30 Room Air 01/31/17 07:45 37.2 92 16 104/66 92 Room Air 01/31/17 05:15 37.0 94 20 106/64 93 Room Air 01/31/17 00:34 Room Air Physical Exam Constitutional: vitals are stable. Eyes: Eyes are KIARRA EOMI without conjuctival erythema or icterus. ENT: External examination was negative for masses. Neck: Negative for masses or palpable thyromegaly Respiratory: Lung sounds were generally clear bilaterally Cardiovascular: Heart was RRR without significant murmur, gallops aoe rubs Gastrointestinal: No palpable hepatic or splenomegaly. The abdomen was soft with normal bowel sounds. Lymphatic system: there was no palpable peripheral lymphadenopathy Musculoskeletal System: The musculoskeletal system seemed concordant with age. Skin: The skin was negative for jaundice. Neurologic exam: The exam was negative for any focal findings. Deep tendon reflexes were equal and symmetrical. Psychiatric exam: Was essentially negative with normal mood and effect. Extremities: Negative for significant edema Laboratory Last 24 Hours Test 01/30/17 12:25 01/31/17 10:20 01/31/17 10:46 Lyme Disease IgG Antibody NEG Lyme Disease IgM Antibody NEG White Blood Count 10.01 K/uL Red Blood Count 3.91 M/uL Hemoglobin 10.8 g/dL Hematocrit 32.6 % Mean Corpuscular Volume 83.4 fL Mean Corpuscular Hemoglobin 27.6 pg Mean Corpuscular Hemoglobin Concent 33.1 g/dl Platelet Count 129 K/uL Mean Platelet Volume 9.1 fL Neutrophils (%) (Auto) 67.9 % Lymphocytes (%) (Auto) 15.2 % Monocytes (%) (Auto) 7.2 % Eosinophils (%) (Auto) 2.6 % Basophils (%) (Auto) 0.4 % Neutrophils # (Auto) 6.80 K/uL Lymphocytes # (Auto) 1.52 K/uL Monocytes # (Auto) 0.72 K/uL Eosinophils # (Auto) 0.26 K/uL Basophils # (Auto) 0.04 K/uL RDW Standard Deviation 40.3 fL RDW Coefficient of Variation 13.4 % Immature Granulocyte % (Auto) 6.7 % Immature Granulocyte # (Auto) 0.67 K/uL Nucleated RBC Absolute Count (auto) 0.03 K/uL Nucleated Red Blood Cells % 0.3 % Prothrombin Time 12.1 SECONDS Prothromb Time International Ratio 1.1 Activated Partial Thromboplast Time 34.8 SECONDS Partial Thromboplastin Ratio 1.3 Sodium Level 135 mmol/L Potassium Level 3.6 mmol/L Chloride Level 96 mmol/L Carbon Dioxide Level 31 mmol/L Anion Gap 8.0 mmol/L Blood Urea Nitrogen 9 mg/dl Creatinine 0.45 mg/dl Est Creatinine Clear Calc Drug Dose 114.9 ml/min Estimated GFR () 126.2 Estimated GFR (Non- 108.9 BUN/Creatinine Ratio 20.9 Random Glucose 110 mg/dl Calcium Level 8.3 mg/dl Magnesium Level 2.2 mg/dl Total Bilirubin 0.7 mg/dl Direct Bilirubin 0.1 mg/dl Aspartate Amino Transf (AST/SGOT) 49 U/L Alanine Aminotransferase (ALT/SGPT) 21 U/L Alkaline Phosphatase 1230 U/L Total Protein 6.1 gm/dl Albumin 2.8 gm/dl Platelet Func Collagen/Epinephrine 179 SECONDS Assessment & Plan The bone marrow biopsy shows primarily necrotic tissue, the reviewing with the pathologist it does have an element of what appears to be a signet ring like carcinoma. Chest x-ray was essentially negative. I believe it would be important to try and sort through as to whether this is a upper versus a lower GI neoplasm in origin. I understand Dr. Comer has been by an endoscopies are planned for Friday. As an important aside, with this diagnosis it would seem warranted to have genomic profile done on this tissue. This would be difficult to do off of marrow. We will see what is found with the endoscopies but if cancer is not found on endoscopies then I believe it would be warranted to pursue abdominal laparoscopic procedure not only to further try and characterize this cancer as far as its location but also to obtain tissue for genomic profiling ([facility], etc.). Finally she will need a subcutaneous port placed regardless of what is found for eventual chemotherapy administration. I did review all the above with Dr. Dunlap. and Dr. Khanna. I will also review with Dr. Comer.
[2017-01-31] MEDS: PROMETHAZINE HCL INJ 12.5 MG in SODIUM CHLORIDE 0.9% 50ML 50 ML IV PRN (12:41)
[2017-01-31 14:52] VITALS: BP 109/70; PULSE 88; TEMP 36.5; O2SAT 91
--- NOTE | 2017-01-31 16:08 | GASTROINTESTINAL CONSULTATION ---
DATE OF CONSULTATION: 01/31/2017 REASON FOR EVALUATION: Metastatic signet cell cancer. HISTORY OF PRESENT ILLNESS: The patient is a 62-year-old who presents with a 2-3 month history of very vague symptoms including nondescript abdominal pain. In the last 2 weeks, she has been experiencing some bruising which was attributed to nonsteroidals. She has also been complaining of severe lower back pain, which got so severe that she ended up being hospitalized. An MRI was performed that showed what appeared to be metastatic lesions in the lumbar spine. CT scan of the abdomen was performed on 01/23/2017 prior to being hospitalized, which showed multiple small lymph nodes and a 2.4-cm soft tissue deposit in the right pelvic side wall. She underwent a bone marrow biopsy by Dr. Ryder with the preliminary reading suggesting a signet cell carcinoma that aspirate was not able to be performed, as I guess it was a dry tap. Because of the histology that suggested a possible GI origin for her tumor and GI consultation has been requested. PAST MEDICAL HISTORY: Essentially negative. MEDICATIONS: Vitamins, gabapentin and baclofen. ALLERGIES: ASPIRIN, CAFFEINE, NAPROSYN, ORPHENADRINE, SALICYLATES, AND XANTHINE. FAMILY HISTORY: She has a second-degree relatives with cancer, but no specifics. SOCIAL HISTORY: The patient is . She is employed, does not smoke. REVIEW OF SYSTEMS: Positive for back pain, night sweats, and abdominal pain. Remainder is negative. PHYSICAL EXAMINATION: GENERAL: The patient appears in no acute distress. VITAL SIGNS: Blood pressure is 131/67, pulse 98. ABDOMEN: Slightly distended. There is some bruising from heparin injections. There are no discrete masses. Liver and spleen were normal. EXTREMITIES: Showed no clubbing, cyanosis or edema. NEUROLOGIC: Normal. IMPRESSION: The patient has what appears to be a signet cell metastatic cancer of undetermined etiology or indeterminate origin. Because of the histology, I would suggest a GI primary and the patient will be scheduled to undergo both an EGD and colonoscopy on Friday02/04/[address]. CEA has been ordered. She is also concerned about the possibility of celiac disease in the past and she has been on a partial gluten-free diet. I have ordered HLA-DQ2 and DQ8 and Dr. Street may biopsy the small intestine during EGD to see if there are any histologic changes suggesting celiac disease, although this is low priority at this point. Dr. Street will be covering for the holiday weekend.
[2017-01-31 20:00] VITALS: BP 107/74; PULSE 86; TEMP 36.7; O2SAT 98
[2017-01-31] MEDS: D5W AND NSS 1,000 ML IV SCH (23:00)
[2017-01-31] MEDS: CEFTRIAXONE SOD INJ 1 GM in DEXTROSE 5% ADD-VANTAGE 50ML 50 ML IV SCH (23:15)
[2017-01-31 23:22] VITALS: BP 102/67; PULSE 94; TEMP 37; O2SAT 93
--- NOTE | 2017-01-31 23:23 | Hospitalist Progress Note ---
Hospitalist Progress Note Date of Service January 31, 2017. Subjective Pt evaluation today including: conversation w/ patient, conversation w/ family , physical exam, conversation w/ internal consultant (Oncology, GI) PO Intake: minimal Still with severe pain in back, pelvis and down legs, some in shoulders an upper back. Also with N/V today, very tired and upset over new dx of metastatic CA. Today is also her 62th birthday. Constitutional: No fever Respiratory: No shortness of breath Abdomen: + constipation, + pain Musculoskeletal: + joint pain Skin: No rash All Other Systems: Reviewed and Negative Objective Vital Signs Date Time Temp Pulse Resp B/P Pulse Ox O2 Delivery O2 Flow Rate FiO2 01/31/17 20:00 36.7 86 20 107/74 98 Room Air 01/31/17 16:00 Room Air 01/31/17 14:52 36.5 88 16 109/70 91 Room Air 01/31/17 11:10 37.0 87 16 108/68 94 Room Air 01/31/17 08:30 Room Air 01/31/17 07:45 37.2 92 16 104/66 92 Room Air 01/31/17 05:15 37.0 94 20 106/64 93 Room Air 01/31/17 00:34 Room Air Physical Exam General Appearance: no apparent distress (drowsy but wakes up to answer and ask some questions) Eyes: normal inspection, sclerae normal ENT: hearing grossly normal Neck: trachea midline Respiratory/Chest: lungs clear, normal breath sounds, no respiratory distress, no accessory muscle use Cardiovascular: regular rate, rhythm, no edema, no gallop, no murmur Abdomen: normal bowel sounds, non tender, soft, no organomegaly Extremities: non-tender, no calf tenderness Neurologic/Psychiatric: + depressed affect Skin: normal color, warm/dry, no rash Lymphatic: no adenopathy Laboratory Results Last 24 Hours Test 01/31/17 10:20 01/31/17 10:46 White Blood Count 10.01 K/uL Red Blood Count 3.91 M/uL Hemoglobin 10.8 g/dL Hematocrit 32.6 % Mean Corpuscular Volume 83.4 fL Mean Corpuscular Hemoglobin 27.6 pg Mean Corpuscular Hemoglobin Concent 33.1 g/dl Platelet Count 129 K/uL Mean Platelet Volume 9.1 fL Neutrophils (%) (Auto) 67.9 % Lymphocytes (%) (Auto) 15.2 % Monocytes (%) (Auto) 7.2 % Eosinophils (%) (Auto) 2.6 % Basophils (%) (Auto) 0.4 % Neutrophils # (Auto) 6.80 K/uL Lymphocytes # (Auto) 1.52 K/uL Monocytes # (Auto) 0.72 K/uL Eosinophils # (Auto) 0.26 K/uL Basophils # (Auto) 0.04 K/uL RDW Standard Deviation 40.3 fL RDW Coefficient of Variation 13.4 % Immature Granulocyte % (Auto) 6.7 % Immature Granulocyte # (Auto) 0.67 K/uL Nucleated RBC Absolute Count (auto) 0.03 K/uL Nucleated Red Blood Cells % 0.3 % Prothrombin Time 12.1 SECONDS Prothromb Time International Ratio 1.1 Activated Partial Thromboplast Time 34.8 SECONDS Partial Thromboplastin Ratio 1.3 Sodium Level 135 mmol/L Potassium Level 3.6 mmol/L Chloride Level 96 mmol/L Carbon Dioxide Level 31 mmol/L Anion Gap 8.0 mmol/L Blood Urea Nitrogen 9 mg/dl Creatinine 0.45 mg/dl Est Creatinine Clear Calc Drug Dose 114.9 ml/min Estimated GFR () 126.2 Estimated GFR (Non- 108.9 BUN/Creatinine Ratio 20.9 Random Glucose 110 mg/dl Calcium Level 8.3 mg/dl Magnesium Level 2.2 mg/dl Total Bilirubin 0.7 mg/dl Direct Bilirubin 0.1 mg/dl Aspartate Amino Transf (AST/SGOT) 49 U/L Alanine Aminotransferase (ALT/SGPT) 21 U/L Alkaline Phosphatase 1230 U/L Total Protein 6.1 gm/dl Albumin 2.8 gm/dl Platelet Func Collagen/Epinephrine 179 SECONDS Assessment and Plan 62 yo female here with intractable back pain after 2-3 weeks of rapidly progressing lower back pain and pelvic girdle pain with some arm pain, night sweats, weigh tloss and poor appetite, with elevated Alk Phos and inumerable bony lesions seen on MRI Lumbar spine. CXR with osteoblastic lesions in ribs and spine but lungs clear. CT abd/pel with mild ROXANNE and one 2.4 cm pelvic sidewall mass. Recent brain MRI with scattered nonspecific foci chronic small vessel dz vs demyelinating dz. ESR normal, Crp elevated, Alk phos >1000 Initial differential included malignancy, sarcoidosis, TB, infection. 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 Review of CT scan by Oncology with Radiology demonstrates possible appendiceal mass. 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 Dunlap who is familiar with her case for possible open biopsy -f/u Hemoccult, other previously ordered labs -start IVFs for concentrated urine and poor po intake Abnormal UA-dirty sample, Ur cx mixed orgs--> received 3 doses Rocephin -d/c Rocephin as no true infection DVT prophylaxis -Heparin 5000 units SC q8h Code Status -Level I, FULL RESUSCITATION STATUS
[2017-02-01 04:00] VITALS: BP 112/68; PULSE 96; TEMP 36.6; O2SAT 97
[2017-02-01] MEDS: OXYCODONE/ACETAMINOPHEN 10/325MG TAB PO PRN ×2 (05:08→10:06)
[2017-02-01 05:49] LABS: HEMATOCRIT 32.8 % (37-47); MEAN CELL VOLUME 85.2 fL (80-100); MEAN CORPUSCULAR HEMOGLOBIN 28.3 pg (25-34); MEAN CORPUSCULAR HGB CONC 33.2 g/dl (32-36); MEAN PLATELET VOLUME 8.9 fL (7.4-10.4); PLATELET COUNT 130 K/uL (130-400); RED BLOOD COUNT 3.85 M/uL (4.2-5.4); WHITE BLOOD COUNT 11.42 K/uL (4.8-10.8)
[2017-02-01] MEDS: HEPARIN SOD 5000 UNIT/0.5 ML CARP SQ SCH ×3 (06:18→22:11)
[2017-02-01 07:15] VITALS: BP 104/68; PULSE 92; TEMP 36.9; O2SAT 92
[2017-02-01] MEDS: BACLOFEN 10 MG TAB PO SCH ×2 (07:38→20:55)
[2017-02-01] MEDS: DOCUSATE SODIUM 100 MG CAP PO SCH ×2 (07:38→20:58)
[2017-02-01] MEDS: GABAPENTIN 100 MG CAP PO SCH ×3 (07:38→20:57)
[2017-02-01] MEDS: D5W AND NSS 1,000 ML IV SCH (07:40)
[2017-02-01 11:08] VITALS: BP 95/61; PULSE 89; TEMP 37.1; O2SAT 93
--- NOTE | 2017-02-01 11:58 | GASTROENTEROLOGY PROGRESS NOTE ---
DATE: 02/01/2017 DATE: 02/01/2017. SUBJECTIVE: The patient continues with some back pain and anterior abdominal pain with mild distention. The patient reports she has not had a bowel movement for approximately 5 days. I did speak with the patient and her at length today regarding some of the recent features that led to her present workup and admission. This includes a component of anorexia and food aversion. Some of the constipation may be, in part due to her analgesic requirements which were started as an outpatient. LABORATORY STUDIES: Today show white count of 11.4, hemoglobin 10.9, MCV 85.2, platelets 130,000, sed rate was 5, blood work shows a CEA that is elevated at 71.8, CA19-9 that is pending. Alkaline phosphatase is elevated at 1230, ALT 21, AST 49. Total bilirubin 0.7. BUN and creatinine are 9 and 0.45. Coagulation INR 1.1. IMAGING STUDIES: As outpatient revealed infiltrative changes at the root of the mesentery with reactive pelvic nodes. There is a right lateral pelvic sidewall nodule versus soft tissue deposits. There is fluid in the cul-de-sac. There is also slight thickening of the terminal ileal region. 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 MEDICATIONS CURRENTLY INCLUDE: Percocet, Dilaudid, promethazine, Neurontin, DVT heparin, baclofen, Ambien, Zofran and milk of magnesia suspension. REVIEW OF SYSTEMS: Otherwise noncontributory based on 14-point exam. The patient did not experience any vomiting but at times feels like she has retained material in the stomach. There is no melena, hematemesis, coffee-ground emesis or bright red blood reported. PHYSICAL EXAMINATION: VITAL SIGNS: Blood pressure 95/61, respirations 18, pulse 89, temperature 37.1, pulse ox 93% on room air, heart rate is 89. GENERAL: The patient is awake, alert, and oriented x3 in mild back pain and abdominal discomfort. She is accompanied by her . HEART: Normal S1, S2. LUNGS: Clear to auscultation. ABDOMEN: Soft, mildly distended, and tympanitic without rebound or guarding. There are no abdominal masses palpated. EXTREMITIES: Without edema. RECTAL EXAMINATION: Deferred. The patient's tentative plan is for upper endoscopy and colonoscopy on Friday. Given the patient's week long pattern of constipation without bowel movement and constipation proceeding admission, I believe it is prudent to consider beginning modified bowel regimen that would include either Dulcolax suppositories and/or Fleets enema today with initiating magnesium citrate tomorrow and formal bowel prep on Friday. She may benefit from bedside commode because of her back pain. I have asked the patient to maintain a low residue diet at least for today and through tomorrow afternoon in anticipation of her bowel prep for Friday. All questions answered. The CEA level is elevated and may suggest a colonic source as well. The patient reports that she has been up to date on mammograms and had a gynecology examination recently which did not reveal an obvious source as ovarian. All questions answered. Will follow with you. RAS
[2017-02-01] MEDS ORDERED: MAGNESIUM CITRATE 296 ML/BTL PO ONE (12:00)
[2017-02-01] MEDS ORDERED: BISACODYL 10 MG SUPP PR ONE (12:00)
[2017-02-01] MEDS: OXYCODONE/ACETAMINOPHEN 10/325MG TAB PO SCH ×3 (14:42→23:47)
[2017-02-01 14:49] VITALS: BP 105/71; PULSE 87; TEMP 36.4; O2SAT 95
[2017-02-01] MEDS ORDERED: MAGNESIUM CITRATE 296 ML/BTL ONE (15:55)
[2017-02-01] MEDS: ONDANSETRON INJ 2 MG/ML 2 ML VIAL IV PRN (15:58)
[2017-02-01] MEDS ORDERED: BISACODYL 10 MG SUPP ONE (18:21)
[2017-02-01 19:13] VITALS: BP 113/72; PULSE 98; TEMP 36.7; O2SAT 97
[2017-02-01 23:41] VITALS: BP 106/68; PULSE 83; TEMP 37; O2SAT 96
[2017-02-02 04:07] VITALS: BP 99/63; PULSE 84; TEMP 36; O2SAT 92
[2017-02-02] MEDS: OXYCODONE/ACETAMINOPHEN 10/325MG TAB PO SCH ×5 (04:31→21:00)
[2017-02-02] MEDS: HEPARIN SOD 5000 UNIT/0.5 ML CARP SQ SCH ×3 (06:21→20:55)
--- NOTE | 2017-02-02 07:11 | Hospitalist Progress Note ---
Hospitalist Progress Note Date of Service February 01, 2017. Subjective Pt evaluation today including: conversation w/ patient, conversation w/ family Patient feeling better today, pain is controlled with oral oxycodone and she is not having any nausea or vomiting today. She is starting a gentle bowel prep as per GI for Tuesdays endoscopies. I spent 45 minutes with the patient and her answering questions about her recent diagnosis of cancer Constitutional: No fever ENT: + nasal symptoms (nasal congestion) Respiratory: + cough, + sputum (starting bringing up some sputum), No shortness of breath Cardiovascular: No chest pain Abdomen: + constipation, + pain, No vomiting Musculoskeletal: + joint pain, + muscle pain All Other Systems: Reviewed and Negative Objective Vital Signs Date Time Temp Pulse Resp B/P Pulse Ox O2 Delivery O2 Flow Rate FiO2 02/02/17 04:07 36.0 84 20 99/63 92 Room Air 02/01/17 23:59 Room Air 02/01/17 23:41 37.0 83 20 106/68 96 Room Air 02/01/17 20:00 Room Air 02/01/17 19:13 36.7 98 18 113/72 97 Room Air 02/01/17 16:34 Room Air 02/01/17 14:49 36.4 87 16 105/71 95 Room Air 02/01/17 11:08 37.1 89 18 95/61 93 02/01/17 07:40 Room Air 02/01/17 07:15 36.9 92 18 104/68 92 Room Air Physical Exam General Appearance: WD/WN, no apparent distress Eyes: normal inspection, sclerae normal ENT: hearing grossly normal, pharynx normal, + pertinent finding (some tenderness to palpation over bilateral maxilla) Neck: supple, trachea midline Respiratory/Chest: lungs clear, normal breath sounds, no respiratory distress, no accessory muscle use Cardiovascular: regular rate, rhythm, no edema, no murmur Abdomen: normal bowel sounds, non tender, soft Extremities: normal inspection, no pedal edema, no calf tenderness Neurologic/Psychiatric: alert, normal mood/affect, oriented x 3 Skin: normal color, warm/dry, no rash Lymphatic: no adenopathy Assessment and Plan 62 yo female here with intractable back pain after 2-3 weeks of rapidly progressing lower back pain and pelvic girdle pain with some arm pain, night sweats, weight loss and poor appetite, with elevated Alk Phos and innumerable bony lesions seen on MRI Lumbar spine. CXR with osteoblastic lesions in ribs and spine but lungs clear. CT abd/pel with mild ROXANNE and one 2.4 cm pelvic sidewall mass. Recent brain MRI with scattered nonspecific foci chronic small vessel dz vs demyelinating dz. ESR normal, Crp elevated, Alk phos >1000 Initial differential included malignancy, sarcoidosis, TB, infection. 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 Review of CT scan by Oncology with Radiology demonstrates possible appendiceal mass. CEA elevated at 71. 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 Dunlap who is familiar with her case for possible open biopsy -f/u Hemoccult, other previously ordered labs -start IVFs for concentrated urine and poor po intake Abnormal UA-dirty sample, Ur cx mixed orgs--> received 3 doses Rocephin -d/c Rocephin as no true infection Cough, sinus congestion-symptoms started prior to arrival, chest x-ray negative for lung disease, could be just a viral illness and is mild -Did receive Rocephin 3 days which would cover for sinus infection and/or bronchitis, but no need to continue antibiotics at this time Observation for worsening DVT prophylaxis -Heparin 5000 units SC q8h Code Status -Level I, FULL RESUSCITATION STATUS
[2017-02-02 07:21] VITALS: BP 98/60; PULSE 89; TEMP 37.4; O2SAT 92
[2017-02-02] MEDS ORDERED: LAVAGE SOLUTION 4000ML PO SCH ×2 (09:00)
[2017-02-02] MEDS: BACLOFEN 10 MG TAB PO SCH ×2 (09:08→20:49)
[2017-02-02] MEDS: GABAPENTIN 100 MG CAP PO SCH ×3 (09:08→20:50)
[2017-02-02] MEDS: DOCUSATE SODIUM 100 MG CAP PO SCH ×2 (09:09→20:50)
[2017-02-02 11:07] VITALS: BP 105/68; PULSE 91; TEMP 37; O2SAT 92
--- NOTE | 2017-02-02 11:08 | Hematology/Oncology Prog Note ---
Hematology/Onc Progress Note Date of Service February 02, 2017. Diagnoses Metastatic signet ring carcinoma Medications Medications Administered Medications (Trade) Dose Ordered Sig/[place] Route Start Time Stop Time Status Last Admin Dose Admin Sodium Chloride 500 ml @ 999 mls/hr Q31M STAT IV 01/29/17 17:11 01/29/17 17:41 DC 01/29/17 17:36 999 MLS/HR Sodium Chloride (Nss 1000ml) 1,000 ml @ 200 mls/hr Q5H STAT IV 01/29/17 17:11 01/29/17 22:05 DC 01/29/17 17:11 200 MLS/HR Hydromorphone HCl 0.5 mg 0.5 mg Q15M PRN IV 01/29/17 17:15 01/29/17 22:05 DC 01/29/17 20:39 0.5 MG Promethazine HCl/ Sodium Chloride (Phenergan Inj/ Nss 50ml) 50.5 ml @ 202 mls/hr Q6H PRN IV 01/29/17 18:00 01/30/17 03:24 DC 01/29/17 18:03 202 MLS/HR Baclofen (Lioresal Tab) 5 mg BID PO 01/29/17 21:00 02/28/17 20:59 02/02/17 09:08 5 MG Docusate Sodium (coLACE CAP) 100 mg BID PO 01/29/17 21:00 02/28/17 20:59 02/01/17 07:38 100 MG Gabapentin (Neurontin Cap) 100 mg BID@0800,1200 PO 01/30/17 08:00 03/01/17 07:59 02/02/17 09:08 100 MG Gabapentin 200 mg 200 mg HS PO 01/29/17 21:00 02/28/17 20:59 02/01/17 20:57 200 MG Potassium Chloride/Dextrose/ Sod Cl (D5nss + 20meq KCl) 1,000 ml @ 150 mls/hr Q6H40M IV 01/29/17 22:30 01/30/17 05:09 DC 01/29/17 23:09 150 MLS/HR Heparin Sodium (Porcine) (Heparin Sq 5000 Unit/0.5ml) 5,000 unit Q8 SQ 01/29/17 22:00 02/28/17 21:59 02/02/17 06:21 5,000 UNIT Polyethylene (Miralax Powder Packet) 17 gm DAILY PRN PO 01/29/17 20:45 02/28/17 20:44 01/31/17 08:54 17 GM Ondansetron HCl (Zofran Inj) 4 mg Q6H PRN IV 01/29/17 20:45 02/28/17 20:44 02/01/17 15:58 4 MG Oxycodone/ Acetaminophen 1 tab 1 tab Q6H PO 01/29/17 22:15 01/30/17 11:48 DC 01/30/17 10:25 1 TAB Ceftriaxone Sodium/Dextrose (Rocephin Inj/ Dextrose Add-[place] 50ML) 50 ml @ 100 mls/hr Q24H IV 01/29/17 23:00 01/31/17 23:23 DC 01/31/17 23:15 100 MLS/HR Hydromorphone HCl (Dilaudid Inj) 0.5 mg Q2H PRN IV 01/29/17 22:45 02/12/17 22:44 01/31/17 21:52 0.5 MG Oxycodone/ Acetaminophen 1 tab 1 tab Q6H PRN PO 01/30/17 16:15 02/01/17 03:04 DC 01/31/17 23:09 1 TAB Promethazine HCl/ Sodium Chloride (Phenergan Inj/ Nss 50ml) 50.5 ml @ 202 mls/hr Q6H PRN IV 01/31/17 12:15 03/02/17 12:14 01/31/17 12:41 202 MLS/HR Oxycodone/ Acetaminophen (Percocet 10-325MG Tab) 1 tab Q4H PRN PO 02/01/17 03:10 02/01/17 14:35 DC 02/01/17 10:06 1 TAB Bisacodyl (Dulcolax Supp) 10 mg 1200 ONCE MI 02/01/17 12:00 02/01/17 12:01 DC 02/01/17 18:31 10 MG Magnesium Citrate (Citrate Of Magnesia Soln) 296 ml 1200 ONCE PO 02/01/17 12:00 02/01/17 12:01 DC 02/01/17 16:00 296 ML Oxycodone/ Acetaminophen (Percocet 10-325MG Tab) 1 tab Q4H PO 02/01/17 15:10 02/15/17 15:09 02/02/17 09:11 1 TAB Polyethylene Glycol/ Electrolytes (Golytely Soln) 8 dose SuMo@0900 PO 02/02/17 09:00 02/03/17 12:00 02/02/17 09:23 8 DOSE Subjective Continues to appear comfortable however pain in various places remains an issue Review of Systems: Constitutional: Negative for night sweats, or fever Eyes: Negative for event change of vision ENT: Negative for epistaxis, nasal discharge, sore throat, or deafness Cardiovascular: Negative for chest pain, palpitations, dizziness, diaphoresis Respiratory: Negative for new shortness of breath,hemoptysis, or purulent cough Gastrointestinal: Negative for diarrhea, hematemesis, melena, nausea, vomiting , or dyspepsia Integumentary (skin): Negative for rash or jaundice discoloration Genitourinary: Negative for urinary frequency, hematuria, or dysuria Neurological: Negative for weakness, seizure activity, headache, or dizziness Lymphatic/Hematologic: Negative for petechiae, bleeding or new adenopathy Musculoskeletal: Complains of some mild rib pain on the left Allergic/Immunologic: Negative for unusual rash or pruritis. Vital Signs Vital Signs Past 12 Hours Date Time Temp Pulse Resp B/P Pulse Ox O2 Delivery O2 Flow Rate FiO2 02/02/17 09:15 Room Air 02/02/17 07:21 37.4 89 18 98/60 92 Room Air 02/02/17 04:07 36.0 84 20 99/63 92 Room Air 02/01/17 23:59 Room Air 02/01/17 23:41 37.0 83 20 106/68 96 Room Air Physical Exam Constitutional: vitals are stable. Eyes: Eyes are KIARRA EOMI without conjuctival erythema or icterus. ENT: External examination was negative for masses. Neck: Negative for masses or palpable thyromegaly Respiratory: Lung sounds were generally clear bilaterally Cardiovascular: Heart was RRR without significant murmur, gallops aoe rubs Gastrointestinal: No palpable hepatic or splenomegaly. The abdomen was soft with normal bowel sounds. Lymphatic system: there was no palpable peripheral lymphadenopathy Musculoskeletal System: The musculoskeletal system seemed concordant with age. Skin: The skin was negative for jaundice. Neurologic exam: The exam was negative for any focal findings. Deep tendon reflexes were equal and symmetrical. Psychiatric exam: Was essentially negative with normal mood and effect. Extremities: Negative for edema erythema Assessment & Plan Hemoccult stool is positive. The patient states that she averages what sounds like 4-6 Percocet a day to control her pain. If necessary beginning a small dose of OxyContin 10 mg twice a day for instance would be reasonable. CEA 71.8. We'll await GI evaluation.
[2017-02-02] MEDS: ONDANSETRON INJ 2 MG/ML 2 ML VIAL IV PRN (11:24)
[2017-02-02] MEDS: PROMETHAZINE HCL INJ 12.5 MG in SODIUM CHLORIDE 0.9% 50ML 50 ML IV PRN (12:55)
[2017-02-02] MEDS: MAGNESIUM CITRATE 296 ML/BTL PO SCH ×2 (13:04→18:47)
[2017-02-02] MEDS ORDERED: BISACODYL 5 MG TABEC PO ONE (13:15)
--- NOTE | 2017-02-02 13:44 | GASTROENTEROLOGY PROGRESS NOTE ---
DATE: 02/02/2017 GASTROENTEROLOGY INPATIENT PROGRESS NOTE SUBJECTIVE: The patient did well with a dose of mag citrate yesterday and Dulcolax suppository with large solid stool followed by many liquid stools that were brown in color, but opaque. Today, she was started GoLYTELY previously ordered for an anticipated 2-day prep by Dr. Comer. The patient was unable to tolerate this medication mostly due to the taste, although volume with bothersome as well. She is on a clear liquid diet currently. Vital signs are stable. REVIEW OF SYSTEMS: Otherwise noncontributory based on 14-point exam. She continues with back pain, although this is reasonably controlled with her analgesics. LABORATORY STUDIES: None performed today. Her CA99 is pending. PHYSICAL EXAMINATION: VITAL SIGNS: Today, the patient is afebrile, blood pressure 105/68, 92% on room air, heart rate 91, respirations 18, 37.0 degree center. GENERAL: Physical examination is unchanged. ABDOMEN: Soft, mildly tympanitic. There is no rebound or guarding. EXTREMITIES: Without edema. LUNGS: Clear to auscultation. HEART: Normal S1, S2. IMPRESSION: The patient is for colonoscopy, upper endoscopy on Friday. Having difficulty with GoLYTELY prep that was previously ordered. Will continue with mag citrate and readdress resuming GoLYTELY prep for tomorrow. Alternatively, will see a pharmacy has access to Suprep which may be better tolerated. The patient encouraged to drink plenty of water in order to help facilitate bowel movement as well as ambulation as tolerated. Clear liquid should be continued. MTDD
[2017-02-02 14:43] VITALS: BP 102/64; PULSE 80; TEMP 36.6; O2SAT 96
[2017-02-02] MEDS ORDERED: NURSING VERBAL MED ORDER ONE (19:00)
[2017-02-02 19:51] VITALS: BP 110/69; PULSE 86; TEMP 36.9; O2SAT 95
--- NOTE | 2017-02-02 20:13 | Hospitalist Progress Note ---
Hospitalist Progress Note Date of Service February 02, 2017. Subjective Pt evaluation today including: conversation w/ patient, conversation w/ family Pt feeling better today, pain controlled, started bowel prep and has had multiple bowel movements. Again answered multiple questions for patient and her today about her condition. Respiratory: + cough, + sputum (clear), No shortness of breath Cardiovascular: No chest pain Abdomen: + nausea, + pain, No vomiting Musculoskeletal: + joint pain All Other Systems: Reviewed and Negative Objective Vital Signs Date Time Temp Pulse Resp B/P Pulse Ox O2 Delivery O2 Flow Rate FiO2 02/02/17 19:51 36.9 86 18 110/69 95 Room Air 02/02/17 15:37 Room Air 02/02/17 14:43 36.6 80 18 102/64 96 Room Air 02/02/17 11:07 37.0 91 18 105/68 92 Room Air 02/02/17 09:15 Room Air 02/02/17 07:21 37.4 89 18 98/60 92 Room Air 02/02/17 04:07 36.0 84 20 99/63 92 Room Air 02/01/17 23:59 Room Air 02/01/17 23:41 37.0 83 20 106/68 96 Room Air Physical Exam General Appearance: WD/WN, no apparent distress Eyes: normal inspection, sclerae normal ENT: hearing grossly normal, pharynx normal Neck: trachea midline Respiratory/Chest: lungs clear, normal breath sounds, no respiratory distress, no accessory muscle use Cardiovascular: regular rate, rhythm, no edema, no gallop, no murmur Abdomen: normal bowel sounds, non tender, soft Extremities: non-tender, normal inspection, no pedal edema, no calf tenderness Neurologic/Psychiatric: alert, normal mood/affect, oriented x 3 Skin: normal color, warm/dry, no rash Assessment and Plan 62 yo female here with intractable back pain after 2-3 weeks of rapidly progressing lower back pain and pelvic girdle pain with some arm pain, night sweats, weight loss and poor appetite, with elevated Alk Phos and innumerable bony lesions seen on MRI Lumbar spine. CXR with osteoblastic lesions in ribs and spine but lungs clear. CT abd/pel with mild ROXANNE and one 2.4 cm pelvic sidewall mass. Recent brain MRI with scattered nonspecific foci chronic small vessel dz vs demyelinating dz. ESR normal, Crp elevated, Alk phos >1000 Initial differential included malignancy, sarcoidosis, TB, infection. 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 Review of CT scan by Oncology with Radiology demonstrates possible appendiceal mass. CEA elevated at 71. Pelvic ultrasound done in the OB office one week ago notes a probable fibroid uterus but ovaries appeared normal. Hemoccult of stool is positive. 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 Dunlap who is familiar with her case for possible open biopsy-we will also need port placement prior to discharge -f/u TB, Vit 1,25-D, ACEI levels originally ordered -Could probably be discharged home after port placement and EGD and colonoscopy completed Abnormal UA-dirty sample, Ur cx mixed orgs--> received 3 doses Rocephin -d/c Rocephin as no true infection Cough, sinus congestion-symptoms started prior to arrival, chest x-ray negative for lung disease, could be just a viral illness and is mild -Did receive Rocephin 3 days which would cover for sinus infection and/or bronchitis, but no need to continue antibiotics at this time Observation for worsening DVT prophylaxis -Heparin 5000 units SC q8h Code Status -Level I, FULL RESUSCITATION STATUS
[2017-02-02] MEDS: GUAIFENESIN 600 MG TABCR PO SCH (20:55)
[2017-02-03] VITALS (7 sets, daily range): BP systolic 95–122; BP diastolic 58–79; PULSE 77–85; TEMP 36.8–37.1; O2SAT 94–99
[2017-02-03] MEDS: OXYCODONE/ACETAMINOPHEN 10/325MG TAB PO SCH ×7 (01:19→23:46)
[2017-02-03] MEDS: HEPARIN SOD 5000 UNIT/0.5 ML CARP SQ SCH ×2 (05:34→14:00)
[2017-02-03 06:30] LABS: HEMATOCRIT 32.7 % (37-47); MEAN CELL VOLUME 84.7 fL (80-100); MEAN PLATELET VOLUME 8.8 fL (7.4-10.4); PLATELET COUNT 156 K/uL (130-400); RED BLOOD COUNT 3.86 M/uL (4.2-5.4); WHITE BLOOD COUNT 13.36 K/uL (4.8-10.8)
[2017-02-03 07:00] LABS: BUN/CREATININE RATIO 12.4 (10-20); CALCIUM 8.8 mg/dl (8.5-10.1); CREATININE 0.5 mg/dl (0.60-1.20); MAGNESIUM 2.8 mg/dl (1.8-2.4)
[2017-02-03 07:27] LABS: EOSINOPHIL % 0.9 %; LYMPH ABS # 3.57 K/uL (1.2-3.4); LYMPHOCYTE % 26.7 %; META ABS # 0.35 K/uL (0-0); METAMYELOCYTE % 2.6 %; NEUTROPHILS % 61.2 %
[2017-02-03] MEDS: BACLOFEN 10 MG TAB PO SCH ×2 (09:49→20:12)
--- NOTE | 2017-02-03 09:49 | GASTROENTEROLOGY PROGRESS NOTE ---
DATE: 02/03/2017 SUBJECTIVE: The patient did well overnight, had effective stool output with mag citrate and Dulcolax tablets. Stool is now brown color, partly clear with some sediment. She does have some bloating, but no vomiting. LABORATORY STUDIES: This morning showed an elevation in her white count of 13.6, hemoglobin is stable at 10.8, MCV 85, platelets are 156,000. Her serum electrolytes show potassium 4.0, BUN and creatinine are 6 and 0.5, magnesium is 2.8. Liver tests are elevated with alk phos at 1369, although transaminase values are elevated as well which is somewhat new since admission on January 29. At that time, AST was 40 and ALT 30. These will need to be repeated. It is unclear if this reflects a medication that she may be taking. REVIEW OF SYSTEMS: Otherwise noncontributory based on 14-point exam. PHYSICAL EXAMINATION: VITAL SIGNS: Today, blood pressure is 109/71, room air 94%, respirations 16, heart rate 85, afebrile at 36.8. GENERAL: The patient is awake, alert and oriented x3, accompanied by her . HEENT: Oral mucosa is moist. HEART: Normal S1, S2. LUNGS: Clear to auscultation. ABDOMEN: Mildly distended, mildly tympanitic with positive bowel sounds. EXTREMITIES: Without clubbing, cyanosis or edema. RECTAL: Deferred. IMPRESSION: We will continue bowel prep today and follow stool output. The plan is to give an additional course of Dulcolax tablets this morning followed by mag citrate as outlined yesterday (5 ounces on two separate occasions with adequate water intake). If the patient is not running clear with this attempt, then we may need to resume the GoLYTELY this evening at 4:00 or 5:00. All questions answered. Regarding the liver tests, these need to be followed and if showing an upper trend additional testing may be necessary, although based on the recent CT scan of January 23, there is no focal liver defects and the liver, spleen, and pancreas were uniform in appearance.
[2017-02-03] MEDS: GABAPENTIN 100 MG CAP PO SCH ×3 (09:50→20:14)
[2017-02-03] MEDS: DOCUSATE SODIUM 100 MG CAP PO SCH ×2 (09:50→20:00)
[2017-02-03] MEDS: GUAIFENESIN 600 MG TABCR PO SCH ×2 (09:50→20:13)
[2017-02-03] MEDS ORDERED: BISACODYL 5 MG TABEC PO ONE (10:00)
[2017-02-03] MEDS ORDERED: MAGNESIUM CITRATE 296 ML/BTL PO ONE ×2 (10:00→13:00)
[2017-02-03] MEDS ORDERED: MAGNESIUM CITRATE 296 ML/BTL PO PRN (15:45)
[2017-02-03] MEDS ORDERED: POLYETHYLENE (MIRALAX) 17 GM PACK PO PRN (15:45)
[2017-02-03] MEDS ORDERED: PROCHLORPERAZINE INJ 5 MG in SYRINGE 4 ML IV PRN (16:00)
[2017-02-03] MEDS ORDERED: LAVAGE SOLUTION 4000ML PO PRN (16:00)
[2017-02-03] MEDS ORDERED: ONDANSETRON INJ 8 MG in DEXTROSE 5% 50ML 50 ML IV PRN (16:15)
--- NOTE | 2017-02-03 17:31 | CONSULTATION REPORT ---
DATE OF CONSULTATION: 02/03/2017 REQUEST BY: Seen at the request of Dr. Ryder for possible an A-port placement with diagnostic laparoscopy if more tissue needed after colonoscopy. SUMMARY: This is a 62-year-old female who has seen in the office last Friday, in fact. The patient was sent over to see the possibility of biopsying a recent finding by CAT scan on 23 of January of a mass in the right lateral wall of the pelvis about 2.4 cm in size. On the day that I saw the patient could hardly walk, she had significant incapacitating pain in abdomen radiating from the abdomen to the back to both legs. I discussed the situation with Dr. Busch and I felt that she probably should be admitted, which she was and the workup by Dr. Ryder who did a bone marrow biopsy for multiple lytic lesions, there seemed to be on few cells for signet cell type, and we were asked to see her for possibility of a further tissue diagnosis if the colonoscopy which is scheduled to be done tomorrow for possibility of identifying a colonic primary, it does not identify any tissue. I spent nearly 40 minutes talking with the patient this morning, pleasant unfortunate female regarding step by step as far as what we would venture to do and the timing of it and this will tentatively plan for an A-port placement for Friday pending colonoscopy results, may need a diagnostic laparoscopy tissue sampling. She is well aware of this and of note, she is fairly comfortable now since I last saw her last Friday where she has taken an occasional Percocet 1 every 4 hours, but the pain that she was having was incapacitating had seems to be have resolved. Of note, the CEA level was 71. MTDD
--- NOTE | 2017-02-03 17:59 | Progress Note ---
Subjective Date of Service: February 03, 2017. Subjective Pt evaluation today including: conversation w/ patient, conversation w/ family , physical exam, chart review, lab review, review of studies, review of inpatient medication list ~1hr in the room face to face >50% answering questions/counselling/discussing care/plan/etc notes that she's feeling bloated but still not clear liquid BM - more liquid but still brown and then yellow didn't tolerate miralax at first made her sick but then really couldn't tolerate golytley - has been on mag citrate and tolerating some but still feeling nauseated and having some BM but not enough she feels for adequate prep extensive questions (about prognosis - had to defer pending full dx/staging but did discuss significant progress in treatment of many cancers; about bowel prep options - discussed extensively see plans below; about coping/getting through things both for her and family - discussed support groups, taoist, humor, etc; about heparin SQ - changed to lovenox but discussed risks for DVT and rationale for prevention; about nausea - increased zofran to 8mg, added prn compazine; pain - notes much better than at admission, currently feels this regimen is working well without too much uncontrolled pain and without too much side effects; about diagnosis - discussed signet ring cell etc) -- all questions answered to the best of my ability and dtr present as well Problem List Medical Problems: (1) Low back pain Status: Acute (2) Lower back pain Status: Acute (3) Malignancy Status: Acute (4) Pelvic pain Status: Acute Review of Systems ros otherwise negative except for as above Objective Vital Signs Date Time Temp Pulse Resp B/P Pulse Ox O2 Delivery O2 Flow Rate FiO2 02/03/17 17:13 36.8 82 16 117/76 95 Room Air 02/03/17 15:36 Room Air 02/03/17 11:51 37.0 77 17 112/73 98 Room Air 02/03/17 09:30 Room Air 02/03/17 08:36 36.8 85 16 109/71 94 Room Air 02/03/17 03:56 36.9 82 18 101/63 94 Room Air 02/03/17 00:47 Room Air 02/03/17 00:19 37.1 80 18 95/58 98 Room Air 02/02/17 20:25 Room Air 02/02/17 19:51 36.9 86 18 110/69 95 Room Air Physical Exam General Appearance: no apparent distress Eyes: EOMI ENT: hearing grossly normal Neck: trachea midline Respiratory/Chest: no respiratory distress, no accessory muscle use Extremities: normal range of motion Neurologic/Psychiatric: professional services manager II-XII nml as tested, alert, normal mood/affect Skin: normal color, warm/dry Laboratory Results Last 24 Hours Test 02/03/17 06:00 02/03/17 06:01 White Blood Count 13.36 K/uL Red Blood Count 3.86 M/uL Hemoglobin 10.8 g/dL Hematocrit 32.7 % Mean Corpuscular Volume 84.7 fL Mean Corpuscular Hemoglobin 28.0 pg Mean Corpuscular Hemoglobin Concent 33.0 g/dl Platelet Count 156 K/uL Mean Platelet Volume 8.8 fL RDW Standard Deviation 41.7 fL RDW Coefficient of Variation 13.7 % Nucleated RBC Absolute Count (auto) 0.06 K/uL Neutrophils % (Manual) 61.2 % Lymphocytes % (Manual) 26.7 % Monocytes % (Manual) 1.7 % Eosinophils % (Manual) 0.9 % Metamyelocytes % 2.6 % Myelocytes % 6.0 % Blast Cells % 0.9 % Nucleated Red Blood Cells % 0.4 % Neutrophils # (Manual) 8.18 K/uL Total Absolute Neutrophils 8.18 K/uL Lymphocytes # (Manual) 3.57 K/uL Total Absolute Lymphocytes 3.57 K/uL Monocytes # (Manual) 0.23 K/uL Eosinophils # (Manual) 0.12 K/uL Metamyelocytes # 0.35 K/uL Myelocytes # 0.80 K/uL Blast Cells # 0.12 K/uL Red Blood Cell Morphology Unremarkable Sodium Level 138 mmol/L Potassium Level 4.0 mmol/L Chloride Level 99 mmol/L Carbon Dioxide Level 34 mmol/L Anion Gap 5.0 mmol/L Blood Urea Nitrogen 6 mg/dl Creatinine 0.50 mg/dl Est Creatinine Clear Calc Drug Dose 103.4 ml/min Estimated GFR () 121.9 Estimated GFR (Non- 105.2 BUN/Creatinine Ratio 12.4 Random Glucose 92 mg/dl Calcium Level 8.8 mg/dl Magnesium Level 2.8 mg/dl Total Bilirubin 0.6 mg/dl Direct Bilirubin 0.1 mg/dl Aspartate Amino Transf (AST/SGOT) 173 U/L Alanine Aminotransferase (ALT/SGPT) 104 U/L Alkaline Phosphatase 1369 U/L Total Protein 6.5 gm/dl Albumin 3.1 gm/dl Assessment and Plan 62 yo female here with intractable back pain after 2-3 weeks of rapidly progressing lower back pain and pelvic girdle pain with some arm pain, night sweats, weight loss and poor appetite, with elevated Alk Phos and innumerable bony lesions seen on MRI Lumbar spine. CXR with osteoblastic lesions in ribs and spine but lungs clear. CT abd/pel with mild ROXANNE and one 2.4 cm pelvic sidewall mass. Recent brain MRI with scattered nonspecific foci chronic small vessel dz vs demyelinating dz. ESR normal, Crp elevated, Alk phos >1000 Initial differential included malignancy, sarcoidosis, TB, infection. 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 Review of CT scan by Oncology with Radiology demonstrates possible appendiceal mass. CEA elevated at 71. Pelvic ultrasound done in the OB office one week ago notes a probable fibroid uterus but ovaries appeared normal. Hemoccult of stool is positive. 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 -need tissue sampling to find primary and send off for genomics for planning for treatment and for prognosis -Appreciate Oncology and GI consultations -if endoscopy unsuccessful to find tumor, Gen Surgery Dr. Dunlap who is familiar with her case for possible open biopsy-we will also need port placement prior to discharge - consult reviewed and appreciated -f/u TB, Vit 1,25-D, ACEI levels originally ordered although more at this point for completeness (if D low will replace) -Could probably be discharged home after port placement and EGD and colonoscopy completed Abnormal UA-dirty sample, Ur cx mixed orgs--> received 3 doses Rocephin -d/c'd Rocephin as no true infection Cough, sinus congestion-symptoms started prior to arrival, chest x-ray negative for lung disease, could be just a viral illness and is mild -Did receive Rocephin 3 days which would cover for sinus infection and/or bronchitis, but no need to continue antibiotics at this time Observation for worsening -- no sx today pain -under reasonable control - suspect when she's up and moving more will probably need long acting pain med in addition to breakthrough meds, but for now keep regimen as is nausea -increase zofran, add prn compazine DVT prophylaxis -lovenox sq (changed due to pain and bruising w Q8 injections for heparin, discussed need for ongoing aggressive DVT proph) Code Status -Level I, FULL RESUSCITATION STATUS again ~1hr in room face to face >50 counselling/answering questions/etc
[2017-02-03] MEDS ORDERED: ONDANSETRON INJ 2 MG/ML 2 ML VIAL IV PRN (20:45)
[2017-02-03 20:54] LABS: QUANTIF TB AG-NIL <0.00 IU/ML; QUANTIFERON NIL 0.02 IU/ML
[2017-02-03] MEDS: ENOXAPARIN 40 MG/0.4 ML SYR SQ SCH (23:01)
[2017-02-04] VITALS (9 sets, daily range): BP systolic 95–133; BP diastolic 57–76; PULSE 84–104; TEMP 36.3–37.3; O2SAT 93–99
[2017-02-04] MEDS: HYDROmorphone INJ 1 MG/ML SYR IV PRN ×4 (00:54→18:23)
[2017-02-04] MEDS: OXYCODONE/ACETAMINOPHEN 10/325MG TAB PO SCH ×6 (03:10→21:16)
[2017-02-04 05:40] LABS: HEMATOCRIT 31.6 % (37-47); MEAN CELL VOLUME 83.8 fL (80-100); MEAN CORPUSCULAR HEMOGLOBIN 26.8 pg (25-34); MEAN PLATELET VOLUME 8.6 fL (7.4-10.4); PLATELET COUNT 161 K/uL (130-400); RED BLOOD COUNT 3.77 M/uL (4.2-5.4); WHITE BLOOD COUNT 12.65 K/uL (4.8-10.8)
[2017-02-04] MEDS: GABAPENTIN 100 MG CAP PO SCH ×3 (08:00→21:11)
[2017-02-04] MEDS: DOCUSATE SODIUM 100 MG CAP PO SCH ×2 (08:56→21:10)
[2017-02-04] MEDS: BACLOFEN 10 MG TAB PO SCH ×2 (08:56→21:13)
[2017-02-04] MEDS: GUAIFENESIN 600 MG TABCR PO SCH ×2 (08:57→21:10)
--- NOTE | 2017-02-04 09:42 | HEME/ONC PROGRESS NOTE ---
DATE: 02/04/2017 DATE OF SERVICE: 02/04/2017. DIAGNOSES: 1. Intractable skeletal pain. 2. Metastatic signet ring carcinoma. HOSPITAL COURSE Erica is a pleasant 62-year-old female patient well known to [facility] admitted on 01/29/2017 with progressive low back pain and bilateral leg pain, night sweats and weight loss. I had seen Erica in the office not more than a week prior to her admission because of bruisability and platelet dysfunction thought to be secondary to nonsteroidal anti-inflammatory use. On 01/23/[address] scan of the abdomen and pelvis which revealed multiple small lymph nodes and a 2.4 cm soft tissue deposit thought to be neoplastic. MRI of the lumbar spine done in the Emergency Room showed multiple foci of marrow replacement consistent with neoplastic process. Dr. Ryder performed bone marrow biopsy confirming metastatic signet ring carcinoma. Erica is to undergo EGD and colonoscopy today to look for primary source. She is in relatively good spirits, understands chemotherapy will be necessary once she is medically stable. Erica also reports MediPort will be placed today or tomorrow. She offers no specific complaints. Her pain is well controlled at present. PHYSICAL EXAMINATION: GENERAL: She is in no acute distress. VITAL SIGNS: Temperature 37.3, pulse 104, respirations 18, blood pressure 103/76. SKIN: Without rash; however, she does have scattered ecchymoses, specifically in her lower abdominal wall where she has been receiving prophylactic anticoagulation. HEAD, EYES, EARS, NOSE, AND THROAT: Oral mucosa without erythema or ulceration. NECK: Supple. HEART: Regular rate and rhythm. LUNGS: Clear to auscultation. ABDOMEN: Soft, nontender, nondistended. EXTREMITIES: No clubbing, cyanosis or edema. NEUROLOGIC: Grossly intact. LABORATORY DATA: WBC count 12,650, hemoglobin 10.1, platelet count 161,000. Sodium 138, potassium 4.0, chloride 99, carbon dioxide 34, BUN 6, creatinine 0.5. Alkaline phosphatase markedly elevated at 1369, AST 173, ALT 104. IMPRESSIONS: 1. 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 2. Intractable skeletal pain secondary to #1. 3. Elevated alkaline phosphatase secondary to bony metastatic disease. 4. Elevated liver transaminases. PLAN: I met Erica and her at bedside today. She was admitted back on the with intractable pain and progressive clinical decline. Unfortunately, she has been diagnosed with metastatic signet ring carcinoma and will require salvage chemotherapy. She will undergo EGD and colonoscopy today which hopefully will reveal a primary source of cancer. MediPort will be placed in the next day or two. Her pain management seems to be optimal at this juncture. She is tentatively scheduled to return on 02/21/2017 but will arrange for more expedient followup prior to discharge. I have nothing further to add at this time and will follow her periodically during her hospital stay. Thank you again for assisting us in the care of this very pleasant patient.
[2017-02-04] MEDS ORDERED: HYDROmorphone INJ 1 MG/ML SYR ONE (12:14)
[2017-02-04] MEDS ORDERED: HYDROmorphone INJ 1 MG/ML SYR IV ONE (12:30)
[2017-02-04] MEDS ORDERED: PROPOFOL IV EMULSION 10 MG/ML 20 ML VIAL IV ONE ×2 (13:54→15:56)
[2017-02-04] MEDS ORDERED: LIDOCAINE HCL 2% 2 ML VIAL (20MG/ML) ONE ×2 (13:54→15:56)
[2017-02-04 14:08] LABS: COMPLETE YES
--- NOTE | 2017-02-04 14:55 | History & Physical Bridge Note ---
H&P Re-Evaluation Bridge Note: I have examined the patient, reviewed the History & Physical and in the interval since the performance of the History & Physical I have noted the following changes of clinical significance: No changes noted EGD/Colon AAO x3 Nl S!s@ lUNGS cta ABD SIOFT MILD DISTENTION, + bs - cce EGD/Colon for assessment of primary source of CA
--- NOTE | 2017-02-04 15:38 | Progress Note ---
Subjective Date of Service: February 04, 2017. Subjective Pt evaluation today including: conversation w/ patient, conversation w/ family , physical exam, chart review, lab review, review of inpatient medication list frustrated upset tired and hurting back hurting more - just had IV dilauded - while i'm in the room it's clear that this is not helping enough so second dose ordered -pain low back worse again -pain @ wrist - just had new IV start - notes it burned a lot when going in and now just still hurts -rib pain didn't sleep well hungry/thirsty scope this afternoon Problem List Medical Problems: (1) Low back pain Status: Acute (2) Lower back pain Status: Acute (3) Malignancy Status: Acute (4) Pelvic pain Status: Acute Review of Systems ros otherwise negative except for as above Objective Vital Signs Date Time Temp Pulse Resp B/P Pulse Ox O2 Delivery O2 Flow Rate FiO2 02/04/17 14:50 36.7 100 20 140/75 97 Room Air 02/04/17 13:38 36.6 97 18 119/72 99 Room Air 02/04/17 11:28 36.6 97 18 119/72 99 Room Air 02/04/17 08:00 Room Air 02/04/17 07:22 37.3 104 18 103/76 95 Room Air 02/04/17 04:00 36.5 91 16 114/67 93 Room Air 02/04/17 00:27 36.6 84 20 116/74 94 Room Air 02/04/17 00:00 Room Air 02/03/17 20:00 99 Room Air 02/03/17 18:51 36.8 83 17 122/79 99 Room Air 02/03/17 17:13 36.8 82 16 117/76 95 Room Air 02/03/17 15:36 Room Air Physical Exam General Appearance: + pertinent finding (in bed, restless, appearing stressed and somewhat tearful) Eyes: EOMI ENT: hearing grossly normal Neck: trachea midline Respiratory/Chest: no respiratory distress, no accessory muscle use Extremities: normal range of motion Neurologic/Psychiatric: upholstery auto trimmer II-XII nml as tested, alert, normal mood/affect Skin: normal color Comments: ost/msk - R sided pelvic musculature (in region of piriformis) high tone/tender/ decreased ROM - muscle energy - improved. pt tolerated well and noted some improvement in pain, taught how to do as well Laboratory Results Last 24 Hours Test 02/04/17 05:22 White Blood Count 12.65 K/uL Red Blood Count 3.77 M/uL Hemoglobin 10.1 g/dL Hematocrit 31.6 % Mean Corpuscular Volume 83.8 fL Mean Corpuscular Hemoglobin 26.8 pg Mean Corpuscular Hemoglobin Concent 32.0 g/dl RDW Standard Deviation 41.1 fL RDW Coefficient of Variation 13.5 % Platelet Count 161 K/uL Mean Platelet Volume 8.6 fL Nucleated RBC Absolute Count (auto) 0.09 K/uL Nucleated Red Blood Cells % 0.7 % Assessment and Plan 62 yo female here with intractable back pain after 2-3 weeks of rapidly progressing lower back pain and pelvic girdle pain with some arm pain, night sweats, weight loss and poor appetite, with elevated Alk Phos and innumerable bony lesions seen on MRI Lumbar spine. CXR with osteoblastic lesions in ribs and spine but lungs clear. CT abd/pel with mild ROAXNNE and one 2.4 cm pelvic sidewall mass. Recent brain MRI with scattered nonspecific foci chronic small vessel dz vs demyelinating dz. ESR normal, Crp elevated, Alk phos >1000 Initial differential included malignancy, sarcoidosis, TB, infection. 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 Review of CT scan by Oncology with Radiology demonstrates possible appendiceal mass. CEA elevated at 71. Pelvic ultrasound done in the OB office one week ago notes a probable fibroid uterus but ovaries appeared normal. Hemoccult of stool is positive. 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 Dunlap who is familiar with her case for possible open biopsy-we will also need port placement prior to discharge - consult reviewed and appreciated -f/u TB, Vit 1,25-D, ACEI levels originally ordered although more at this point for completeness (if D low will replace) -Could probably be discharged home after port placement and EGD and colonoscopy completed Abnormal UA-dirty sample, Ur cx mixed orgs--> received 3 doses Rocephin -d/c'd Rocephin as no true infection Cough, sinus congestion-symptoms started prior to arrival, chest x-ray negative for lung disease, likely viral illness and is mild -Did receive Rocephin 3 days which would cover for sinus infection and/or bronchitis, but no need to continue antibiotics at this time pain -as above, today pain worse due to NPO -increase gabapentin as above -voltaren gel -continue prn narcotics -continue baclofen -d/w pt and - will work for multimodal approach nausea -zofran, phenergan, or compazine prn DVT prophylaxis -lovenox sq somatic dysfunction pelvis -while bulk of pain is likely bony from mets, does have element of biomechanical pain - OMT as above Code Status -Level I, FULL RESUSCITATION STATUS
[2017-02-04] MEDS ORDERED: ONDANSETRON INJ 2 MG/ML 2 ML VIAL ONE (15:56)
[2017-02-04] MEDS ORDERED: PHENYLEPHRINE 100MCG/ML 5ML SYR ONE (15:56)
[2017-02-04] MEDS ORDERED: DEXAMETHASONE SOD INJ 4 MG/ML VIAL ONE (15:56)
--- NOTE | 2017-02-04 16:00 | GI REPORT ---
Procedure Date: 02/04/2017 3:01 PM Procedure: Upper GI endoscopy Indications: Iron deficiency anemia, Personal history of malignant neoplasm; unknown primary source; elevated CA19-9 and CEA Medicines: Propofol per Anesthesia Complications: No immediate complications. Estimated blood loss: Minimal. Estimated Blood Loss: Estimated blood loss was minimal. Procedure: Pre-Anesthesia Assessment: - Prior to the procedure, a History and Physical was performed, and patient medications and allergies were reviewed. The patient's tolerance of previous anesthesia was also reviewed. The risks and benefits of the procedure and the sedation options and risks were discussed with the patient. All questions were answered, and informed consent was obtained. Prior Anticoagulants: The patient has taken no previous anticoagulant or antiplatelet agents. ASA Grade Assessment: III - A patient with severe systemic disease. After reviewing the risks and benefits, the patient was deemed in satisfactory condition to undergo the procedure. After obtaining informed consent, the endoscope was passed under direct vision. Throughout the procedure, the patient's blood pressure, pulse, and oxygen saturations were monitored continuously. The scope was introduced through the mouth, and advanced to the mid-jejunum. The upper GI endoscopy was accomplished without difficulty. The patient tolerated the procedure well. Findings: The examined esophagus was normal. A few less than 5 mm sessile polyps with no bleeding and no stigmata of recent bleeding were found in the gastric fundus and in the gastric body. Biopsies were taken with a cold forceps for histology. Estimated blood loss was minimal. Verification of patient identification for the specimen was done by the physician and sleep technician using the patient's name and medical record number. The examined duodenum was normal. The examined jejunum was normal. Retained gastric contents are not identified on this exam. The cardia and gastric fundus were normal on retroflexion. The exam of the stomach was otherwise normal. Impression: - Normal esophagus. - A few gastric polyps. Biopsied. - Normal examined duodenum. - Normal examined jejunum. Recommendation: - Await pathology results. - Perform a colonoscopy today. MD Sebastian Zuñiga MD 02/04/2017 4:00:08 PM This report has been signed electronically. Note Initiated On: 02/04/2017 3:01 PM I attest to the content of the Intraoperative Record and orders documented therein, exceptions below
--- NOTE | 2017-02-04 16:13 | GI REPORT ---
Procedure Date: 02/04/2017 3:20 PM Procedure: Colonoscopy Indications: Personal history of malignant neoplasm, Abnormal CT of the GI tract Medicines: Propofol per Anesthesia Complications: No immediate complications. Estimated blood loss: Minimal. Estimated Blood Loss: Estimated blood loss was minimal. Procedure: Pre-Anesthesia Assessment: - Prior to the procedure, a History and Physical was performed, and patient medications and allergies were reviewed. The patient's tolerance of previous anesthesia was also reviewed. The risks and benefits of the procedure and the sedation options and risks were discussed with the patient. All questions were answered, and informed consent was obtained. Prior Anticoagulants: The patient has taken no previous anticoagulant or antiplatelet agents. ASA Grade Assessment: III - A patient with severe systemic disease. After reviewing the risks and benefits, the patient was deemed in satisfactory condition to undergo the procedure. After I obtained informed consent, the scope was passed under direct vision. Throughout the procedure, the patient's blood pressure, pulse, and oxygen saturations were monitored continuously. The scope was introduced through the anus and advanced to the terminal ileum, with identification of the appendiceal orifice and IC valve. The colonoscopy was performed with moderate difficulty due to unsatisfactory bowel prep and a tortuous colon. The patient tolerated the procedure well. The quality of the bowel preparation was fair. Findings: The perianal and digital rectal examinations were normal. Pertinent negatives include normal sphincter tone, no palpable rectal lesions and no anal lesion or abnormality was detected. A fungating, sessile and submucosal non-obstructing large mass was found in the cecum. The mass was partially circumferential (involving one-half of the lumen circumference). No bleeding was present. Biopsies were taken with a cold forceps for histology. The location is behind the ileocecal valve. The texture, although firm is somewhat unusual for colon cancer and may reflect an alternate histology type ( endometrial, ovarian). This is separate from IV valve region and the TI is normal throughout the examined area. The terminal ileum appeared normal. The retroflexed view of the distal rectum and anal verge was normal and showed no anal or rectal abnormalities. The exam was otherwise without abnormality. The bowel prep limits ability to detect small to moderate polyps and lesions. Impression: - Likely malignant tumor in the cecum. Biopsied. - The examined portion of the ileum was normal. - The distal rectum and anal verge are normal on retroflexion view. - The examination was otherwise normal. Recommendation: - [facility]. - Await pathology results. - CA 19-9 is markedly elevated and CEA is also elevated. Unclear if former is c/w primary colon CA in absence of biliary, hepatic or pancreatic abnormalities on imaging. LFTs have increased however since admission and need monitoring. MD Sebastian Zuñiga MD 02/04/2017 4:12:31 PM This report has been signed electronically. Note Initiated On: 02/04/2017 3:20 PM I attest to the content of the Intraoperative Record and orders documented therein, exceptions below
--- NOTE | 2017-02-04 16:14 | Anesthesiology Progress Note ---
Anesthesia Post Op Note Date & Time February 04, 2017 at 16:14 Vital Signs Pain Intensity: 0 Vital Signs Past 12 Hours Date Time Temp Pulse Resp B/P Pulse Ox O2 Delivery O2 Flow Rate FiO2 02/04/17 15:59 90 20 113/42 100 Room Air 02/04/17 15:09 37.0 95 18 133/68 99 Room Air 02/04/17 14:50 36.7 100 20 140/75 97 Room Air 02/04/17 13:38 36.6 97 18 119/72 99 Room Air 02/04/17 11:28 36.6 97 18 119/72 99 Room Air 02/04/17 08:00 Room Air 02/04/17 07:22 37.3 104 18 103/76 95 Room Air Notes Mental Status: alert / awake / arousable, participated in evaluation Pt Amnestic to Procedure: Yes Nausea / Vomiting: adequately controlled Pain: adequately controlled Airway Patency, RR, SpO2: stable & adequate BP & HR: stable & adequate Hydration State: stable & adequate Anesthetic Complications: no major complications apparent
[2017-02-04] MEDS ORDERED: GABAPENTIN 100 MG CAP PO ONE (17:30)
[2017-02-04] MEDS ORDERED: BACLOFEN 10 MG TAB PO ONE (17:30)
[2017-02-04] MEDS: DICLOFENAC SOD 1% GEL 100 GM TUBE EXT SCH ×2 (18:00→21:16)
[2017-02-04] MEDS: ENOXAPARIN 40 MG/0.4 ML SYR SQ SCH (21:00)
[2017-02-05] VITALS (7 sets, daily range): BP systolic 103–132; BP diastolic 64–77; PULSE 85–92; TEMP 36.4–36.9; O2SAT 96–99
[2017-02-05] MEDS: OXYCODONE/ACETAMINOPHEN 10/325MG TAB PO SCH ×5 (03:10→19:26)
[2017-02-05] MEDS: HYDROmorphone INJ 1 MG/ML SYR IV PRN ×3 (04:03→10:10)
[2017-02-05] MEDS: GABAPENTIN 100 MG CAP PO SCH ×3 (08:00→19:26)
[2017-02-05] MEDS: BACLOFEN 10 MG TAB PO SCH ×3 (08:00→19:27)
[2017-02-05] MEDS: DOCUSATE SODIUM 100 MG CAP PO SCH ×2 (08:00→19:27)
[2017-02-05] MEDS: DICLOFENAC SOD 1% GEL 100 GM TUBE EXT SCH ×4 (08:05→19:29)
[2017-02-05] MEDS: GUAIFENESIN 600 MG TABCR PO SCH ×2 (08:18→19:27)
--- NOTE | 2017-02-05 08:39 | History & Physical Bridge Note ---
H&P Re-Evaluation Bridge Note: I have examined the patient, reviewed the History & Physical and in the interval since the performance of the History & Physical I have noted the following changes of clinical significance: No changes noted discussed with pt and ok to proceed with A-port placement today
--- NOTE | 2017-02-05 09:08 | HEME/ONC PROGRESS NOTE ---
DATE: 02/05/2017 DIAGNOSES: 1. Intractable skeletal pain. 2. Metastatic signet ring carcinoma. HOSPITAL COURSE: Erica is a pleasant 62-year-old female patient well known to [facility], admitted on 01/29/2017 with progressive low back pain, bilateral leg pain, night sweats and weight loss. Erica underwent colonoscopy yesterday which revealed a nonobstructive cecal mass. Cold biopsies were performed and pathology pending. MediPort will be placed by general surgery today. Again, Erica is in good spirits, engaged in extensive conversation regarding treatment options. She offers no complaints otherwise this morning. PHYSICAL EXAMINATION: GENERAL: A 62-year-old female patient, in no acute distress. VITAL SIGNS: Temperature 36.4, pulse 87, respiration 16, blood pressure 103/64. SKIN: Without rash or lesions, scattered ecchymosis noted. HEENT: Oral mucosa without erythema or ulceration. NECK: Supple. HEART: Regular rate and rhythm. LUNGS: Clear to auscultation. ABDOMEN: Soft, nontender, nondistended. EXTREMITIES: No clubbing, cyanosis or edema. NEUROLOGIC: Focally intact. LABORATORY DATA: Chemistries pending. IMPRESSION: 1. Ileocecal mass, suspect primary lesion. 2. Intractable skeletal pain. 3. Metastatic signet ring carcinoma. PLAN: Erica and her were again at bedside today. She offers no complaints and is anxious to be discharged as soon as MediPort is placed. Engaged in discussion regarding chemotherapeutic options. Advised her that would wait for final path on the recently discovered cecal mass. Pain management appears to be reasonable. I will arrange for outpatient followup and schedule chemotherapy sometime early next week. Erica and her had a multitude of questions, which were answered to satisfaction.
[2017-02-05 09:42] LABS: BUN/CREATININE RATIO 20.8 (10-20); CALCIUM 8.5 mg/dl (8.5-10.1); CREATININE 0.4 mg/dl (0.60-1.20); POTASSIUM 3.8 mmol/L (3.5-5.1)
[2017-02-05 09:57] LABS: ALB/GLOB RATIO 0.9 (0.9-2)
[2017-02-05] MEDS ORDERED: BACITRACIN 50000 UNIT VIAL ONE (10:37)
[2017-02-05] MEDS ORDERED: LIDOCAINE HCL 1% 20 ML VIAL ONE (10:37)
[2017-02-05] MEDS ORDERED: PROPOFOL IV EMULSION 10 MG/ML 20 ML VIAL IV ONE (10:49)
[2017-02-05] MEDS ORDERED: LIDOCAINE HCL 2% 2 ML VIAL (20MG/ML) ONE (10:49)
[2017-02-05] MEDS ORDERED: MIDAZOLAM HCL 1 MG/ML 2ML VIAL ONE (10:50)
[2017-02-05] MEDS ORDERED: FENTANYL CITRATE INJ 50 MCG/1 ML 2 ML VIAL ONE (10:50)
[2017-02-05] MEDS ORDERED: LACTATED RINGER'S 1000ML 1,000 ML IV PRN (11:33)
[2017-02-05] MEDS ORDERED: ONDANSETRON INJ 2 MG/ML 2 ML VIAL IV PRN (11:45)
[2017-02-05] MEDS ORDERED: FENTANYL CITRATE INJ 50 MCG/1 ML 2 ML VIAL IV PRN (11:45)
--- NOTE | 2017-02-05 12:05 | [facility] Post Operative Brief Note ---
Immediate Operative Summary Operative Date February 05, 2017. Pre-Operative Diagnosis Need for IV access for chemotherapy. Post-Operative Diagnosis Same as preop. Procedure(s) Performed A-Port Insertion, Left Subclavian(MRI compatible Surgeon Dr. Dunlap Product Grader Surgeon(s) None Estimated Blood Loss 5 ml Findings as preop Specimens None. Anesthesia 1% xyl(6cc) and iv sedation
[2017-02-05] MEDS ORDERED: HYDROmorphone INJ 2 MG/ML SYR/VIAL ONE (12:09)
--- NOTE | 2017-02-05 12:24 | DIAGNOSTIC IMAGING REPORT ---
SINGLE VIEW CHEST CLINICAL HISTORY: Port placement. FINDINGS: An AP, portable, upright chest radiograph is compared to study dated 01/30/2017. Correlation is made with abdominal CT dated 01/23/2017. The examination is degraded by portable technique and patient rotation. A left subclavian central infusion port is new from previous. The tip of the catheter projects over the right atrium. The cardiomediastinal silhouette is unremarkable. Chronic interstitial thickening is similar to previous. No airspace consolidation or pleural effusion is identified. No pneumothorax is seen. The skeletal structures are osteopenic. Numerous subtle sclerotic foci are present throughout the visualized bony structures and are consistent with osteoblastic metastatic disease. These were better characterized on recent CT scans. IMPRESSION: 1. A left subclavian central venous infusion port is new from previous. No pneumothorax is seen post procedure. 2. There is no airspace consolidation or pleural effusion. 3. Subtle findings of diffuse osteoblastic metastatic disease are again noted. Electronically signed by: Patrikc Silva M.D. 02/05/2017 12:23 PM Dictated Date/Time: 02/05/2017 12:21 PM
[2017-02-05] MEDS ORDERED: NURSING VERBAL MED ORDER ONE (12:30)
--- NOTE | 2017-02-05 12:41 | Anesthesiology Progress Note ---
Anesthesia Post Op Note Date & Time February 05, 2017 at 12:41 Vital Signs Pain Intensity: 4 Vital Signs Past 12 Hours Date Time Temp Pulse Resp B/P Pulse Ox O2 Delivery O2 Flow Rate FiO2 02/05/17 12:32 122/71 02/05/17 12:29 90 18 02/05/17 12:29 92 18 92 02/05/17 12:26 122/68 02/05/17 12:24 92 13 96 02/05/17 12:24 91 13 02/05/17 12:21 121/72 02/05/17 12:19 93 19 99 02/05/17 12:19 90 19 02/05/17 12:17 117/75 02/05/17 12:14 88 17 02/05/17 12:14 87 17 97 02/05/17 12:12 123/60 02/05/17 12:09 94 13 99 02/05/17 12:09 94 13 02/05/17 12:06 134/72 02/05/17 12:05 126/78 02/05/17 12:04 36.9 95 16 126/78 96 Room Air 02/05/17 12:04 96 18 02/05/17 12:04 96 18 96 02/05/17 08:30 Room Air 02/05/17 07:39 36.4 87 16 103/64 98 Room Air 02/05/17 03:57 36.7 87 18 122/74 99 02/05/17 01:04 Room Air Notes Mental Status: alert / awake / arousable, participated in evaluation Pt Amnestic to Procedure: No (recall as expected) Nausea / Vomiting: adequately controlled Pain: adequately controlled Airway Patency, RR, SpO2: stable & adequate BP & HR: stable & adequate Hydration State: stable & adequate Anesthetic Complications: no major complications apparent Pt doing well. Her chronic back pain is now tolerable.
[2017-02-05] MEDS ORDERED: HYDROmorphone INJ 1 MG/ML SYR IV PRN (12:45)
--- NOTE | 2017-02-05 14:20 | OPERATIVE REPORT ---
DATE OF OPERATION: 02/05/2017 PREOPERATIVE DIAGNOSIS: Signet cell carcinoma with metastasis, need for chemotherapy. POSTOPERATIVE DIAGNOSIS: Same. PROCEDURE: MRI compatible port left subclavian. SURGEON: Dr. Dunlap. OPERATION AND FINDINGS: SUMMARY: The patient was brought into the operating room theater in supine position, a roll had been gently placed underneath her shoulders, although she had some problem with her neck, but we were able to turn her head to the right. Left chest area and neck was prepped with Betadine solution and properly draped. Systemic antibiotics was given. Placed in low Trendelenburg position. 1% Xylocaine without epinephrine, we used a total of about 6 mL with IV sedation. We first infiltrated at the angle of the clavicle and percutaneously we accessed the subclavian vein without aspirating any air, but initially we had to puncture it 2 times to get into the vein. At this point, a guidewire was followed easily positioned in superior vena cava. At this point, we made a counter incision about an inch and a half below the puncture site sufficient enough to accommodate the reservoir. We thinned out the subcutaneous tissue as we palpated the pocket with MRI port. At this point, we tunneled the guidewire that we initially placed to this puncture site to the new reservoir site and placed the catheter after first using a 7-Marshallese introducer, positioned the catheter in the right atrium superior vena cava. We were at approximately 23 cm from the subclavian area. We then placed a black bolster, cut the catheter and placed it on the reservoir. We aspirated and flushed easily. Then we created the pocket. We initially placed a suture in the apical aspect but it was too close to the skin edge; therefore we repositioned this and placed in the 2-0 Prolene sutures at its 3 anchor sites. The catheter was then reinspected and appeared to be in the right atrial superior vena cava area. We then at this point, we were able to close the wound with 3-0 and 2-0 Dexon and 4-0 Monocryl. Steri-Strips applied. Prior to leaving the room we aspirated and flushed quite easily. Estimated blood loss approximately 5 mL. I attest to the content of the Intraoperative Record and any orders documented therein. Any exceptio ns are noted below.
--- NOTE | 2017-02-05 16:29 | Progress Note ---
Subjective Date of Service: February 05, 2017. Subjective Pt evaluation today including: conversation w/ patient, conversation w/ family , physical exam, chart review, lab review, review of inpatient medication list once again ~60mins face to face in the room answering questions/providing guidance doing well post port placement. not much of any pain. doing better eating and drinking. back pain stable no new problems with this. wonders about port, follow up, meds, lifestyle to follow, etc. answered all questions to the best of my ability and to her/'s satisfaction Problem List Medical Problems: (1) Low back pain Status: Acute (2) Lower back pain Status: Acute (3) Malignancy Status: Acute (4) Pelvic pain Status: Acute Review of Systems ros otherwise negative except for as above Objective Vital Signs Date Time Temp Pulse Resp B/P Pulse Ox O2 Delivery O2 Flow Rate FiO2 02/05/17 15:43 36.4 92 18 121/68 96 Room Air 02/05/17 13:15 36.7 85 16 132/77 98 Room Air 02/05/17 13:00 36.6 89 16 112/70 96 Room Air 02/05/17 12:49 88 16 02/05/17 12:49 88 16 95 02/05/17 12:46 118/55 02/05/17 12:44 89 21 95 02/05/17 12:44 89 21 02/05/17 12:41 36.7 02/05/17 12:41 114/67 02/05/17 12:39 85 21 02/05/17 12:39 88 21 96 02/05/17 12:38 88 17 98 02/05/17 12:38 88 17 02/05/17 12:37 111/65 02/05/17 12:33 85 20 02/05/17 12:33 82 20 93 02/05/17 12:32 122/71 02/05/17 12:29 90 18 02/05/17 12:29 92 18 92 02/05/17 12:26 122/68 02/05/17 12:24 92 13 96 02/05/17 12:24 91 13 02/05/17 12:21 121/72 02/05/17 12:19 93 19 99 02/05/17 12:19 90 19 02/05/17 12:17 117/75 02/05/17 12:14 88 17 5/31/17 12:14 87 17 97 02/05/17 12:12 123/60 02/05/17 12:09 94 13 99 02/05/17 12:09 94 13 02/05/17 12:06 134/72 02/05/17 12:05 126/78 02/05/17 12:04 36.9 95 16 126/78 96 Room Air 02/05/17 12:04 96 18 02/05/17 12:04 96 18 96 02/05/17 08:30 Room Air 02/05/17 07:39 36.4 87 16 103/64 98 Room Air 02/05/17 03:57 36.7 87 18 122/74 99 02/05/17 01:04 Room Air 02/04/17 23:54 36.7 88 18 100/57 98 Room Air 02/04/17 20:55 Room Air 02/04/17 19:21 36.9 90 20 95/57 94 Room Air 02/04/17 16:30 36.3 86 18 128/63 95 Room Air 02/04/17 16:30 Room Air 02/04/17 16:29 87 20 129/69 97 Room Air Physical Exam General Appearance: no apparent distress Eyes: EOMI ENT: hearing grossly normal Neck: trachea midline Respiratory/Chest: no respiratory distress, no accessory muscle use Neurologic/Psychiatric: exercise science internship II-XII nml as tested, alert, normal mood/affect Skin: normal color, warm/dry Laboratory Results Last 24 Hours Test 02/05/17 08:44 Sodium Level 137 mmol/L Potassium Level 3.8 mmol/L Chloride Level 102 mmol/L Carbon Dioxide Level 27 mmol/L Anion Gap 8.0 mmol/L Blood Urea Nitrogen 8 mg/dl Creatinine 0.40 mg/dl Est Creatinine Clear Calc Drug Dose 129.2 ml/min Estimated GFR () 131.2 Estimated GFR (Non- 113.2 BUN/Creatinine Ratio 20.8 Random Glucose 84 mg/dl Calcium Level 8.5 mg/dl Total Bilirubin 0.7 mg/dl Aspartate Amino Transf (AST/SGOT) 148 U/L Alanine Aminotransferase (ALT/SGPT) 171 U/L Alkaline Phosphatase 1195 U/L Total Protein 6.5 gm/dl Albumin 3.0 gm/dl Globulin 3.5 gm/dl Albumin/Globulin Ratio 0.9 Assessment and Plan 62 yo female here with intractable back pain after 2-3 weeks of rapidly progressing lower back pain and pelvic girdle pain with some arm pain, night sweats, weight loss and poor appetite, with elevated Alk Phos and innumerable bony lesions seen on MRI Lumbar spine. CXR with osteoblastic lesions in ribs and spine but lungs clear. CT abd/pel with mild ROXANNE and one 2.4 cm pelvic sidewall mass. Recent brain MRI with scattered nonspecific foci chronic small vessel dz vs demyelinating dz. 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, with intractable back pain secondary to bony metastases -continue pain control, antiemetics - doing better - outlined overall pain controll plan -voltaren gel to area around piriformis and SI joint -Continue home baclofen 5 mg PO BID, can titrate up if needed -increased gabapentin yesterday, likely gradual increases weekly or so if pain uncontrolled as long as not having side effects -percocet prn - with above, if still needing percocet TID/QID or more -would strongly consider addition of long acting narcotic -colo noted -- await pathology -Appreciate Oncology and GI consultations -f/u TB, Vit 1,25-D, ACEI levels originally ordered although more at this point for completeness (if D low will replace) -port placed -discussed eating/exercise/etc in depth Abnormal UA-dirty sample, Ur cx mixed orgs--> received 3 doses Rocephin -d/c'd Rocephin as no true infection Cough, sinus congestion-symptoms started prior to arrival, chest x-ray negative for lung disease, likely viral illness and is mild -Did receive Rocephin 3 days which would cover for sinus infection and/or bronchitis, but no need to continue antibiotics at this time pain -as above - gabapentin as above -voltaren gel -continue prn narcotics, low threshold for long acting if needed -continue baclofen -d/w pt and - will work for multimodal approach nausea -zofran, phenergan, or compazine prn DVT prophylaxis -lovenox sq Code Status -Level I, FULL RESUSCITATION STATUS
--- NOTE | 2017-02-05 18:18 | GASTROENTEROLOGY PROGRESS NOTE ---
DATE: 02/05/2017 SUBJECTIVE: The patient underwent upper endoscopy and colonoscopy yesterday and tolerated the procedure without problems overnight. The patient remains slightly lethargic, presumably due to her analgesic requirements. Pathology at this time is pending. There are no new laboratory studies from today. The patient is ready for supper. The patient underwent Infusaport placement today by Dr. Dunlap. PHYSICAL EXAMINATION: VITAL SIGNS: Blood pressure is 121/66, afebrile at 36.4, heart rate 92, respirations 18, 96% on room air. GENERAL: Unremarkable. The patient is awake, alert and oriented x3, although slightly lethargic and she is accompanied by her . HEART: Normal S1, S2. LUNGS: Clear to auscultation. ABDOMEN: Soft, mildly distended, and minimally tympanitic without rebound or guarding. There are positive bowel sounds. EXTREMITIES: Without clubbing, cyanosis or edema. RECTAL: Deferred at this time. IMPRESSION: 1. Colonoscopy with a mass identified in the cecum, await the histology for this, hopefully available later this week or early next week. The patient is tentative office visit for oncology next week and if does well overnight and tolerates oral intake, will be discharged tomorrow. Will sign off at this time. If you have any questions, please contact the office. Thank you for allowing me to participate in this patient's care.
[2017-02-06] MEDS: OXYCODONE/ACETAMINOPHEN 10/325MG TAB PO SCH ×4 (04:10→12:01)
[2017-02-06 04:25] VITALS: BP 99/61; PULSE 80; TEMP 36.8; O2SAT 96
[2017-02-06 07:51] VITALS: BP 113/70; PULSE 84; TEMP 36.7; O2SAT 97
--- NOTE | 2017-02-06 07:51 | SURGERY PROGRESS NOTE ---
DATE: 02/06/2017 Jody is resting comfortably. She slept pretty much all night. Last vitals showed a temperature of 36.8, pulse 80, respirations 16, blood pressure 99/61. The A-port site the dressing was a little saturated, removed it and actually she has probably a little sensitivity to the Op-Site since there was surrounding like at a square area away from the Steri-Strips and the port itself. There is no infection, no redness other than outlined by the tape, which was removed. From my point of view, the patient can be discharged and we will see her back in the office in 1 week, p.r.n. if need be. She can shower and I asked her not to over extend her left arm. The A-port certainly can be used at any time.
[2017-02-06] MEDS: DOCUSATE SODIUM 100 MG CAP PO SCH (08:08)
[2017-02-06] MEDS: GABAPENTIN 100 MG CAP PO SCH ×2 (08:08→12:01)
[2017-02-06] MEDS: GUAIFENESIN 600 MG TABCR PO SCH (08:08)
[2017-02-06] MEDS: BACLOFEN 10 MG TAB PO SCH (08:08)
[2017-02-06] MEDS: DICLOFENAC SOD 1% GEL 100 GM TUBE EXT SCH ×2 (08:10→12:01)
--- NOTE | 2017-02-06 09:43 | Anesthesiology Progress Note ---
Anesthesia Post Op Note Date & Time Feb 06, 2017 at 09:42 Vital Signs Pain Intensity: 5.0 Vital Signs Past 12 Hours Date Time Temp Pulse Resp B/P (MAP) Pulse Ox O2 Delivery O2 Flow Rate FiO2 02/06/17 08:00 Room Air 02/06/17 07:51 36.7 84 18 113/70 (84) 97 Room Air 02/06/17 04:25 36.8 80 16 99/61 (74) 96 Room Air 02/06/17 00:44 Room Air 02/05/17 23:30 36.4 88 20 120/71 (87) 98 Room Air Notes Mental Status: alert / awake / arousable, participated in evaluation Pt Amnestic to Procedure: Yes Nausea / Vomiting: adequately controlled Pain: adequately controlled Airway Patency, RR, SpO2: stable & adequate BP & HR: stable & adequate Hydration State: stable & adequate Anesthetic Complications: no major complications apparent
[2017-02-06] MEDS ORDERED: GABA1CAP PO ×2 (10:15)
[2017-02-06] MEDS ORDERED: ONDA4TAB10 SL ×2 (10:15)
[2017-02-06] MEDS ORDERED: CLC100 PO ×2 (10:15)
[2017-02-06] MEDS ORDERED: MRLP17X PO ×2 (10:15)
[2017-02-06] MEDS ORDERED: VLTG EXT ×2 (10:15)
[2017-02-06] MEDS ORDERED: OXYC-88 PO ×2 (10:15)
--- NOTE | 2017-02-06 10:31 | Discharge Instructions ---
Discharge Instructions Date of Service Feb 06, 2017. Admission Reason for Admission: Intractable Low Back Pain Discharge Discharge Diagnosis / Problem: signet ring cell cancer Discharge Goals Goal(s): Decrease discomfort, Learn about illness, Diagnostic testing, Therapeutic intervention Activity Recommendations Activity Limitations: resume your previous activity (as we discussed - do whatever you feel you can, but particularly with exercise, don't have a "push through it" mindset if things feel too much/painful. otherwise no formal restrictions) Driving or Machine Use: as we discussed, just use caution/judgement and common sense - the meds you're on can be sedating, but as long as both you and your see that you're not groggy or slow, nothing specifically precludes driving. i would avoid driving for a few days after a dose change or after a few days when a new med is started . Instructions / Follow-Up Instructions / Follow-Up signet ring cell cancer -the pathology from the colonoscopy should give the oncology team what they need to best determine treatment -they should be calling you tomorrow or friday with the date/time for your follow up -- if you don't hear from them by around 1p on friday - call to confirm your follow up when i was in an office practice, i always viewed my "active cancer patients" as a "two quarterback model" -- where the medical oncologist takes care of all things cancer related, but it was still important to have close, routine follow up with family med to make sure "the whole you" is getting looked after, and small problems get adjusted before they become big. i'd recommend seeing Dr Busch probably monthly as you're going through this journey -- and since he's sometimes hard to get in with, have one person as your "plan B" for consistency so that if it's not Dr Busch, there's someone else who gets to know you well to help keep an eye on you. pain / pain medications -the overriding goal is to keep your pain under as good of control as possible, while also trying to minimize side effects of pain meds -- to do that, we'll work an approach that uses different medications, with different mechanisms, to try to synergistically keep things under better control -gabapentin - for now, we'll have you take 200mg in the AM, 200mg mid day, and 400mg at bedtime. it's a med with a wide dose range -- theoretically up to as much as 1000mg three times a day. each increase in dosing might take as long as 3-4 weeks to really see the positive effects, but usually side effects come more quickly -- typically shortly after a dose increase - and most commonly appearing groggy/slow/"drunk" -- if that happens too severely, talk w Dr Busch about reducing the dose. if it happens but it's mild, stay the course for a few days as often mild side effects will go away. gabapentin is a "cousin" to anti-seizure medications, that acts to quiet how your nerves transmit pain sensation. -voltaren gel - a topical anti-inflammatory, voltaren gel usually gets the benefit of being on an anti-inflammatory with far less risk of stomach ulcers and kidney problems, since it's not really absorbed into your system much at all. typically it takes using it in the same area 3-4 times a day for 2-3 days before you start to see benefit, but then we usually see that it works pretty well at quieting pain -- we'll want you using that predominantly across your right piriformis muscle region, and right sacroiliac joint -baclofen - this is a muscle relaxant, you're on a fairly low dose @ 5mg twice a day - this can actually be increased to a range of even as high as 20mg four times a day if you go slowly. right now since muscle spasms aren't a big part of it, we're keeping the dosing low, but if you started to have more of a predominance of muscle spasm symptoms, Dr Busch could then start to increase the dose if this. -percocet - percocet is a combination of oxycodone (a moderate/high potency narcotic) and acetaminophen (tylenol) -- it's going to be what we call a "breakthrough" pain med - meaning it's your safety net when you're having pain above/beyond what the gabapentin/voltaren gel/baclofen are helping. if your pain is mild/moderate - try 1/2 of a pill; if things are more severe, take a whole one. by next week, if you're needing this more than 3-4 times a day consistently (or you're taking that/more and your pain still isn't where it needs to be) Dr Busch can add a long acting narcotic (such as oxycontin, or a fentanyl patch) to the baseline pain regimen. the biggest problem with the narcotics is constipation, and certainly they can make you feel groggy/slow as well. alternative/non medical pain control -chiropractic - as we discussed, working with your chiropractor can still be a good and beneficial part of keeping your pain under control, it's just that with the metastatic cancer he'll have to be a little more "handcuffed" on what techniques he uses. i would bring your imaging reports for him to look over so he knows where to be most gentle, and would ask him to do mostly/entirely soft tissue focused techniques. this falls in line with the stretching i taught you for the right piriformis (specifically it's a technique called post-isometric relaxation muscle energy) -- so you can continue to do that at home too. i would also have him avoid anything in the family of lymphatic/venous pump techniques, to avoid the theoretical risk of spreading the cancer further -exercise - we'll talk exercise again with the lifestyle changes to keep you healthy, but also for pain, 20-30 minutes of getting your heart rate up improves blood flow which does help improve pain control at least some in most people. bowel regimen -between the narcotics for pain, and the fact that the tumor does fill in some of the cecum (the starting point of your colon), we'll want you to keep on a good bowel regimen to keep things moving, and prevent constipation -colace - take 100mg of colace twice a day, every day, unless you're seeing loose stools/diarrhea/common sense tells you to back down -miralax - if you've gone more than 24 hours without a bowel movement, start taking miralax up to twice a day until things get moving again. like we discussed, since you had so much "cleared out" with the bowel regimen and the on -again / off-again diet - start the "clock" on bowel movements friday (ie if you didn't poop friday, then friday would be the first day to start the miralax) lifestyle considerations -we'll want you to be as positive and optimistic as you can, with the "fatalistic blinders" of enjoying each day for whatever it has to offer. laugh whenever you can, cry whenever you need to, and just take things one day at a time. we're entering a new era with cancer treatments, where people are living with metastatic cancers longer and longer as a "chronic illness" and while this mindset is counter to anything we've ever thought of (ie we used to think cure/ not cure...and not curable = ) we're slowly moving away from that with these newer treatments that don't generally cure, but keep the cancer "at bay" -healthy eating -- work to predominantly eat fruits/vegetables, lean proteins ( nuts, seeds, chicken without the skin, fish, pork without the fat) and work to avoid saturated fats (fatty meats, fried foods, snack food fats) and simple/ bready/starchy/sugary or potato laden carbs. that's not to say you have to practice absolute avoidance of those foods, and as we discussed, if you happen to be feeling sick and something like mashed potatoes is the only thing that sounds good, getting nutrition is the most important thing, eating from the healthy categories is secondary -- so eat what you can. if all things are equal , then work towards the healthy eating as above -exercise - as best as possible, target 20-30 minutes of light cardiovascular exercise a day. don't work out so hard as to cause fatigue/exhaustion - we don' t want to distract resources from your immune system to repair damage from overdoing it, but regular, light exercise appears to have a good benefit (not surprising, right?!). if you don't feel up to it, don't force it. if you can' t do 20 minutes, 10 is better than nothing, but target the goal of 30 minutes a day. with the classes you were talking about - remember that if you're doing something that feels uncomfortable or feels "too much" don't push through - you actually would have the potential to hurt yourself given the current situation Current Hospital Diet Patient's current hospital diet: Gluten Free Diet Discharge Diet Recommended Diet: Gluten Free Diet (overall shoot for a diet heavy in fruits, vegetables, lean proteins (nuts, seeds, fish, chicken without the skin, pork with the fat cut off), minimize saturated fats and starchy/bready/sugary/ potatoey carbs) Procedures Procedures Performed: A-Port Insertion, Left Subclavian(MRI compatible Pending Studies Studies pending at discharge: yes (pathology from colonoscopy) List of pending studies: pathology from colonoscopy Medical Emergencies . Who to Call and When: Medical Emergencies: If at any time you feel your situation is an emergency, please call 911 immediately. . Non-Emergent Contact Non-Emergency issues call your: Primary Care Provider, Oncologist . . "Provider Documentation" section prepared by Shlomo Peraza. . VTE Core Measure Inpt VTE Proph given/why not?: Enoxaparin (Lovenox) [place] Drug Monitoring Program Search Results: patient reviewed within database, no issues identified
[2017-02-06 11:02] VITALS: BP 113/70; PULSE 84; TEMP 36.7; O2SAT 97
--- NOTE | 2017-02-06 18:32 | Discharge Summary ---
Discharge Summary Date of Service Feb 06, 2017. Discharge Summary Admission Date: January 29, 2017 at 23:19 Discharge Date: Feb 06, 2017 Discharge Disposition: Home Principal Diagnosis: signet ring cell carcinoma Procedures: Colonoscopy: Impression: - Likely malignant tumor in the cecum. Biopsied. - The examined portion of the ileum was normal. - The distal rectum and anal verge are normal on retroflexion view. - The examination was otherwise normal. Recommendation: - [facility]. - Await pathology results. - CA 19-9 is markedly elevated and CEA is also elevated. Unclear if former is c/w primary colon CA in absence of biliary, hepatic or pancreatic abnormalities on imaging. LFTs have increased however since admission and need monitoring. Sebastian Street MD EGD: Impression: - Normal esophagus. - A few gastric polyps. Biopsied. - Normal examined duodenum. - Normal examined jejunum. Recommendation: - Await pathology results. - Perform a colonoscopy today. Sebastian Street MD pathology reports from above: FINAL DIAGNOSIS A. STOMACH, GASTRIC POLYPS, BIOPSY: TWO FRAGMENTS OF FUNDIC GLAND-TYPE POLYP. MILD CHRONIC GASTRITIS NOTED. B. CECUM, MASS, BIOPSY: 1. POORLY DIFFERENTIATED ADENOCARCINOMA, SIGNET RING CELL TYPE. 2. SEE COMMENT. COMMENT: The vast majority of the adenocarcinoma shows a signet ring cell morphology. The tumor is evaluated for microsatellite instability by immunohistochemistry: MISMATCH REPAIR PROTEINS TESTING BY IHC FOR FLYNN SYNDROME MLH1 Protein: Present. PMS2 Protein: Present. MSH2 Protein: Present. MSH6 Protein: Present. INTERPRETATION: Intact expression of all four proteins (MLH1, MSH2, MSH6 and PMS2) is present within the carcinoma. The immunohistochemistry findings are not consistent with microsatellite instability. Internal controls worked appropriately. RECOMMENDATION: In the absence of a significant clinical history, (e.g., diagnosis <45 years, first-degree relative with colorectal carcinoma, multiple primary tumors) no further testing is recommended. Nga AM, Lupe WL. 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 A Review. Adv Jackie Pathol 16(6):392-404, July 2009. PM/pi MRI OF THE LUMBAR SPINE WITH AND WITHOUT CONTRAST CLINICAL HISTORY: Severe low back and lower extremity pain. COMPARISON STUDY: Lumbar spine MRI August 10, 2015. TECHNIQUE: Utilizing a 1.5 Deonna magnet and dedicated coil, multiplanar, multiecho imaging of the lumbar spine was performed before and after uneventful IV administration of 6 mL of Gadavist. FINDINGS: For purposes of numbering on this exam, the L5-S1 disc space is assigned to axial image 27 of 30. Alignment of the lumbar spine is anatomic. Vertebral body heights are maintained. There are innumerable foci of diminished T1 signal and increased T2 signal throughout the lower thoracic spine, lumbar spine, sacrum and visualized portions of the pelvis. No pathologic fracture is identified. The largest of these is a 2 cm lesion within the T11 vertebral body. There is no intracanalicular mass or fluid collection. The conus to moderate at the mid L1 level. A small amount of fluid is noted within the pelvis. L1-2: The central canal and neural foramen are patent. L2-3: The central canal and neural foramen are patent. L3-4: There is minimal disc bulge. The central canal and neural foramen are patent. L4-5: The central canal and neural foramen are patent. L5-S1: There is minimal disc bulge. The central canal and neural foramen are patent. IMPRESSION: 1. Innumerable foci of marrow replacement within visualized skeletal structures consistent with a neoplastic process such as metastatic disease, lymphoma or less likely myeloma. Metastatic disease is favored. Findings discussed with Dr. Lopez at time of dictation. 2. Mild multilevel degenerative disc disease. No disc herniation. Patent central canal and neural foramen. No intracanalicular mass or pathologic enhancement. 3. Small amount of ascites within the pelvis. Electronically signed by: William Chaudhyr M.D. 01/29/2017 8:01 PM Dictated Date/Time: 01/29/2017 7:36 PM bone marrow biopsy: FINAL DIAGNOSIS BONE MARROW, CORE BIOPSY: METASTATIC CARCINOMA WITH SIGNET RING FEATURES. SEE MICROSCOPIC DESCRIPTION. RV/pi SINGLE VIEW CHEST CLINICAL HISTORY: Port placement. FINDINGS: An AP, portable, upright chest radiograph is compared to study dated 01/30/2017. Correlation is made with abdominal CT dated 01/23/2017. The examination is degraded by portable technique and patient rotation. A left subclavian central infusion port is new from previous. The tip of the catheter projects over the right atrium. The cardiomediastinal silhouette is unremarkable. Chronic interstitial thickening is similar to previous. No airspace consolidation or pleural effusion is identified. No pneumothorax is seen. The skeletal structures are osteopenic. Numerous subtle sclerotic foci are present throughout the visualized bony structures and are consistent with osteoblastic metastatic disease. These were better characterized on recent CT scans. IMPRESSION: 1. A left subclavian central venous infusion port is new from previous. No pneumothorax is seen post procedure. 2. There is no airspace consolidation or pleural effusion. 3. Subtle findings of diffuse osteoblastic metastatic disease are again noted. Electronically signed by: Patrick Silva M.D. 02/05/2017 12:23 PM DICTATED BY: Jordin Dunlap M.D. DATE OF OPERATION: 02/05/2017 PREOPERATIVE DIAGNOSIS: Signet cell carcinoma with metastasis, need for chemotherapy. POSTOPERATIVE DIAGNOSIS: Same. PROCEDURE: MRI compatible port left subclavian. SURGEON: Dr. Dunlap. Consultations: GI heme/onc general surgery Medication Reconciliation New Medications: Gabapentin (Neurontin) 100 Mg Cap 1 CAP PO UD for 30 Days, #240 CAP 2 Refills 200mg in AM, 200mg mid day, 400mg HS Ondasetron Odt (Zofran Odt) 4 Mg Tab 4 MG SL Q6H for Nausea, #60 TAB Diclofenac Sod (Voltaren) 100 Appln/100 Gm Gel 1 APPLN EXT QID, #100 GM Docusate Sodium (Docusate Sodium) 100 Mg Cap 100 MG PO BID, #60 CAP Oxycodone/Acetaminophen 10MG/325MG (Oxycodone/Acetaminophen 10MG/325MG) 1 Tab Tab 1 TAB PO Q4H, #90 TAB 1 po qid prn breakthrough pain Polyethylene (Miralax) 17 Gm Pow 17 GM PO BID PRN for Constipation, #1 BTL take if not having at least 1BM daily while on colace Continued Medications: Baclofen (Baclofen) 10 Mg Tab 5 MG PO BID Cholecalciferol (Vitamin D3) 1,000 Unit Tab 1000 UNIT PO BID for 90 Days, #18 TAB 3 Refills Cyanocobalamin (Vitamin B-12) 1,000 Mcg Tab 1000 MCG PO BID, TAB Discontinued Medications: Docusate Sodium (Docusate Sodium) 100 Mg Cap 100 CAP PO BID WHILE ON TRAMADOL Gabapentin (Neurontin) 100 Mg Cap 100 MG PO BID, CAP Gabapentin (Neurontin) 100 Mg Cap 200 MG PO HS Tramadol (Ultram) 50 Mg Tab 50-100 MG PO Q6H PRN for Pain, TAB Discharge Exam Physical Exam: General Appearance: no apparent distress Eyes: EOMI ENT: hearing grossly normal Neck: trachea midline Respiratory/Chest: no respiratory distress, no accessory muscle use Neurologic/Psychiatric: 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 nml as tested, alert Skin: normal color, warm/dry Hospital Course 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 if poor control, would increase gabapentin further and start long acting narcotic. -extensive discussions, discussed lifestyle, eating/exercise, mindset, etc. -stable for home Abnormal UA-dirty sample, Ur cx mixed orgs--> received 3 doses Rocephin -d/c'd Rocephin as no true infection Cough, sinus congestion-symptoms started prior to arrival, chest x-ray negative for lung disease, likely viral illness and is mild -Did receive Rocephin 3 days which would cover for sinus infection and/or bronchitis, but no need to continue antibiotics at this time pain -as above - gabapentin as above -voltaren gel -continue prn narcotics, low threshold for long acting if needed -continue baclofen -d/w pt and - will work for multimodal approach nausea -zofran prn DVT prophylaxis -lovenox sq utilized during her stay stable for home Total Time Spent: Greater than 30 minutes (~1hr in the room, additional time doing med rec, instructions, etc - approx 90mins total time today) This includes examination of the patient, discharge planning, medication reconciliation, and communication with other providers. Discharge Instructions Please refer to the electronic Patient Visit Report (Discharge Instructions) for additional information. Follow-Up PCP next week, heme/onc next week Additional Copies To Avila Busch M.D.; Jose R Handley D.O.
[2017-02-13 18:39] LABS: APTT 29 sec (22-34); F8 ACT 141 % (50-180); RISTOCETIN COFACTOR** 4459X 200 % (42-200)
[2017-03-04] MEDS ORDERED: PROC1TAB5 PO (08:48)
[2017-04-11] MEDS ORDERED: DOCU100C31 PO (10:29)
[2017-04-11] MEDS ORDERED: voltaren gel (10:31)
[2017-04-11] MEDS ORDERED: ACET-1311 PO (10:32)
[2017-04-11] MEDS ORDERED: POLY335019 PO (10:32)
[2017-04-11] MEDS ORDERED: ONDA4TAB46 PO (10:32)
== END 2017-02-06 15:21 | disposition home or self-care (01) | DRG 375 ==
LOC: ENRESERVTM → ENRESERVDT → C.EDB 16:23 → C.4E 20:41 → OBSVTOIN 23:19
PROVIDERS: ADMIT Internal Medicine; ATTEND Family Medicine
PROC: 07DR3ZX Extraction of Iliac Bone Marrow, Percutaneous Approach, Diagnostic (ICD-10-PCS; principal; 2017-01-30)
PROC: 0DBH8ZX Excision of Cecum, Via Natural or Artificial Opening Endoscopic, Diagnostic (ICD-10-PCS; 2017-02-04)
PROC: 0DB68ZX Excision of Stomach, Via Natural or Artificial Opening Endoscopic, Diagnostic (ICD-10-PCS; 2017-02-04 14:44)
PROC: 02HV33Z Insertion of Infusion Device into Superior Vena Cava, Percutaneous Approach (ICD-10-PCS; 2017-02-05)
PROC: 0JH60XZ Insertion of Tunneled Vascular Access Device into Chest Subcutaneous Tissue and Fascia, Open Approach (ICD-10-PCS; 2017-02-05)
DX: C18.0 Malignant neoplasm of cecum (principal); C79.51 Secondary malignant neoplasm of bone; C79.52 Secondary malignant neoplasm of bone marrow; C77.2 Secondary and unspecified malignant neoplasm of intra-abdominal lymph nodes; G89.3 Neoplasm related pain (acute) (chronic); M54.5 Low back pain; R05 Cough; B34.9 Viral infection, unspecified; R11.0 Nausea; K31.7 Polyp of stomach and duodenum; R82.90 Unspecified abnormal findings in urine; K59.00 Constipation, unspecified; D50.9 Iron deficiency anemia, unspecified; G62.9 Polyneuropathy, unspecified; Z51.81 Encounter for therapeutic drug level monitoring; Z79.899 Other long term (current) drug therapy; Z80.0 Family history of malignant neoplasm of digestive organs

== ENCOUNTER 2017-03-13 11:12 | Emergency (ER) | payer OTHER ==
[~2017-03-13] VITALS: Ht 162.6 cm; Wt 60.5 kg
[~2017-03-13 11:12] MED LIST changes: +CLC100 PO; -CYCL10TA6 PO; -GABA-112 PO; +GABA1CAP PO; +LRS10 PO; +MRLP17X PO; +OXYC-88 PO; -OXYC1TAB3 PO; -PRED50TA PO; +PROC1TAB5 PO; +VLTG EXT
[2017-03-13] MEDS ORDERED: ONDANSETRON INJ 2 MG/ML 2 ML VIAL IV STA (11:28)
[2017-03-13] MEDS ORDERED: SODIUM CHLORIDE 0.9% 1000ML 500 ML IV STA (11:28)
[2017-03-13] MEDS ORDERED: MoRPHine SULFATE 4 MG/ML 1 ML CARP\\VIAL IV PRN ×2 (11:30→15:45)
[2017-03-13] MEDS ORDERED: OPTIRAY 320 IV PRN (11:45)
--- NOTE | 2017-03-13 12:03 | DIAGNOSTIC IMAGING REPORT ---
SINGLE VIEW CHEST CLINICAL HISTORY: Dyspnea. FINDINGS: An AP, portable, upright chest radiograph is compared to study dated 02/05/2017. The examination is degraded by portable technique and patient rotation. A left subclavian central venous infusion port is unchanged in position. The tip projects over the right atrium. The cardiomediastinal heart is top normal for projection. The pulmonary vasculature is noncongested. Diffuse interstitial thickening is similar to previous. There is a right pleural effusion with right basilar consolidation. A trace left pleural fluid is suspected. No pneumothorax is seen. The skeletal structures are osteopenic. Numerous sclerotic bone lesions are identified, suggesting multifocal metastatic disease.. IMPRESSION: 1. There is a small right pleural effusion with right basilar consolidation. Consolidative change likely represents atelectasis. Correlate clinically for evidence of superimposed pneumonia. This is new from 02/05/2017. 2. Trace pleural fluid is seen at the left base. 3. Numerous sclerotic foci are noted throughout the visualized bony structures and are highly concerning for multifocal osseous metastatic disease. Electronically signed by: Patrick Silva M.D. 03/13/2017 12:01 PM Dictated Date/Time: 03/13/2017 11:56 AM
[2017-03-13 12:05] VITALS: O2SAT 91
--- NOTE | 2017-03-13 12:06 | EMERGENCY ROOM VISIT NOTE ---
History Report prepared by Keo: Tennille Downey Under the Supervision of: Dr. Patrick Lopez M.D. First contact with patient: 11:22 Chief Complaint: SHORTNESS OF BREATH Stated Complaint: SOB-CHEMO PATIENT-POSS. BLOOD CLOT Nursing Triage Summary: Pt states she is getting chemo for stage 4 colon cancer with mets. [place] agitated yesterday and a little short of breath, today the shortness of breath is worse. Concerned about possible blood clot. A Port History of Present Illness The patient is a 62 year old female who presents to the Emergency Room with complaints of worsening shortness of breath that started yesterday. The patient is receiving chemotherapy for stage 4 colon cancer that metastasized to her bones. Her last chemotherapy treatment was 3 days ago and then she was on a pump for 2 days. The patient has an APort. The patient states that she was agitated and experienced some shortness of breath yesterday after her pump was removed. Today, the patient experienced increased shortness of breath and states that she is unable to get a full breath. She states that she is experiencing chest pressure and that is causing her to experience shortness of breath. The patient states that the pressure comes on intermittently and randomly. She denies fevers, increased cough, and lower extremity edema. The patient denies any personal or family history of blood clots. The patient states that she has mild asthma but she didn't use her inhaler. She adds that she has never experienced asthma this severe. The patient adds that she is hypersensitive to smells secondary to the chemotherapy that she is receiving so she requested a different room. The patient is also experiencing nausea, but states that it is likely secondary to the chemotherapy and hypersensitivity to smells. She is on Zofran and Compazine at home. Source of History: patient Onset: yesterday Position: chest Quality: other (shortness of breath) Timing: worsening Associated Symptoms: + chest pain (pressure), + nausea, No fevers, No cough Note: no lower extremity edema Review of Systems See HPI for pertinent positives & negatives. A total of 10 systems reviewed and were otherwise negative. Past Medical & Surgical Medical Problems: (1) Asthma (2) Colon cancer metastasized to bone (3) Intractable low back pain Family History No pertinent family history Social History Smoking Status: Never Smoker Marital Status: Housing Status: lives with family Occupation Status: employed Current/Historical Medications Scheduled Baclofen (Baclofen), 5 MG PO BID Cholecalciferol (Vitamin D3), 1,000 UNIT PO BID Cyanocobalamin (Vitamin B-12), 1,000 MCG PO BID Diclofenac Sod (Voltaren), 1 APPLN EXT QID Docusate Sodium (Docusate Sodium), 100 MG PO BID Fentanyl (Fentanyl), 1 PATCH TOP Q72H Gabapentin (Neurontin), 1 CAP PO UD Ondasetron Odt (Zofran Odt), 4 MG SL Q6H Scheduled PRN Oxycodone/Acetaminophen 5MG/325MG (Percocet 5MG/325MG), 2 TABLETS PO Q4H PRN for Pain Polyethylene (Miralax), 17 GM PO BID PRN for Constipation Prochlorperazine Maleate (Compazine), 1 TAB PO Q6 PRN for Nausea or Vomiting Allergies Coded Allergies: Naproxen (Unverified Allergy, Unknown, UNKNOWN, 03/13/17) Orphenadrine (Unverified Adverse Reaction, Unknown, ALTERED MENTAL STATUS , 03/13/17) Salicylates (Unverified Adverse Reaction, Unknown, ALTERED MENTAL STATUS, 03/13/17) Uncoded Allergies: XANTHINE (Adverse Reaction, Unknown, ALTERED MENTAL STATUS, 02/01/17) Physical Exam Vital Signs Date Time Temp Pulse Resp B/P (MAP) Pulse Ox O2 Delivery O2 Flow Rate FiO2 03/13/17 15:09 94 18 139/75 93 Room Air 03/13/17 14:42 93 Room Air 03/13/17 13:57 94 16 143/79 93 Room Air 03/13/17 12:05 91 Room Air 03/13/17 11:17 96 Room Air 03/13/17 11:17 36.8 95 20 129/66 97 Room Air Physical Exam GENERAL: Patient is in no acute distress. HEENT: No acute trauma, normocephalic atraumatic, mucous membranes moist, no nasal congestion, no scleral icterus. NECK: No stridor, no adenopathy, no meningismus, trachea is midline. LUNGS: Clear to auscultation bilaterally, no wheeze, no rhonchi, breath sounds equal. HEART: Mildly tachycardic, regular rhythm, no murmurs. ABDOMEN: Soft, nontender, bowel sounds positive, no hernias, no peritonitis. EXTREMITIES: No cyanosis or edema, full range of motion of all the joints without pain or difficulty, no signs for acute trauma. NEUROLOGIC: Oriented x 3, no acute motor or sensory deficits, no focal weakness. SKIN: Pale, no rash, no jaundice, no diaphoresis. Medical Decision & Procedures ER Provider Diagnostic Interpretation: Radiology results as stated below per my review and radiologist interpretation: SINGLE VIEW CHEST FINDINGS: An AP, portable, upright chest radiograph is compared to study dated 02/05/2017. The examination is degraded by portable technique and patient rotation. A left subclavian central venous infusion port is unchanged in position. The tip projects over the right atrium. The cardiomediastinal heart is top normal for projection. The pulmonary vasculature is noncongested. Diffuse interstitial thickening is similar to previous. There is a right pleural effusion with right basilar consolidation. A trace left pleural fluid is suspected. No pneumothorax is seen. The skeletal structures are osteopenic. Numerous sclerotic bone lesions are identified, suggesting multifocal metastatic disease.. IMPRESSION: 1. There is a small right pleural effusion with right basilar consolidation. Consolidative change likely represents atelectasis. Correlate clinically for evidence of superimposed pneumonia. This is new from 02/05/2017. 2. Trace pleural fluid is seen at the left base. 3. Numerous sclerotic foci are noted throughout the visualized bony structures and are highly concerning for multifocal osseous metastatic disease. Electronically signed by: Patrick Silva M.D. 03/13/2017 12:01 PM Dictated Date/Time: 03/13/2017 11:56 AM CHEST CTA for PULMONARY ARTERIES FINDINGS: No significant right pleural effusion. Small left effusion. Thoracic aorta is normal in course and caliber. Central catheter in superior vena cava. Nonspecific interstitial prominence throughout both hemithoraces. Enhancement of the central and first order pulmonary vessels is unremarkable. The peripheral lower lobe pulmonary vessels are not diagnostically seen due to respiratory and somatic motion. There are findings of diffuse metastatic bony changes throughout the axial and appendicular skeleton. IMPRESSION: 1. No evidence for main or central pulmonary embolus. 2. Nondiagnostic evaluation of the peripheral vessels of the lower lungs due to respiratory and somatic motion. 3. Large right pleural effusion. 4. Small left effusion. 5. Diffuse bony metastatic change throughout. Electronically signed by: Jatin Nicholas M.D. 03/13/2017 1:08 PM Dictated Date/Time: 03/13/2017 1:02 PM Laboratory Results 03/13/17 11:50 Red Blood Count 3.10, Mean Corpuscular Volume 89.7, Mean Corpuscular Hemoglobin 28.1, Mean Corpuscular Hemoglobin Concent 31.3, Mean Platelet Volume 8.1, Neutrophils (%) (Auto) 71.7, Lymphocytes (%) (Auto) 19.7, Monocytes (%) (Auto) 4.1, Eosinophils (%) (Auto) 1.0, Basophils (%) (Auto) 0.7, Neutrophils # (Auto) 5.09, Lymphocytes # (Auto) 1.40, Monocytes # (Auto) 0.29, Eosinophils # (Auto) 0.07, Basophils # (Auto) 0.05 03/13/17 11:50 Test 03/13/17 11:50 White Blood Count 7.10 K/uL (4.8-10.8) Red Blood Count 3.10 M/uL (4.2-5.4) Hemoglobin 8.7 g/dL (12.0-16.0) Hematocrit 27.8 % (37-47) Mean Corpuscular Volume 89.7 fL (80-100) Mean Corpuscular Hemoglobin 28.1 pg (25-34) Mean Corpuscular Hemoglobin Concent 31.3 g/dl (32-36) Platelet Count 129 K/uL (130-400) Mean Platelet Volume 8.1 fL (7.4-10.4) Neutrophils (%) (Auto) 71.7 % Lymphocytes (%) (Auto) 19.7 % Monocytes (%) (Auto) 4.1 % Eosinophils (%) (Auto) 1.0 % Basophils (%) (Auto) 0.7 % Neutrophils # (Auto) 5.09 K/uL (1.4-6.5) Lymphocytes # (Auto) 1.40 K/uL (1.2-3.4) Monocytes # (Auto) 0.29 K/uL (0.11-0.59) Eosinophils # (Auto) 0.07 K/uL (0-0.5) Basophils # (Auto) 0.05 K/uL (0-0.2) RDW Standard Deviation 64.1 fL (36.4-46.3) RDW Coefficient of Variation 19.7 % (11.5-14.5) Immature Granulocyte % (Auto) 2.8 % Immature Granulocyte # (Auto) 0.20 K/uL (0.00-0.02) Nucleated RBC Absolute Count (auto) 0.22 K/uL (0-0) Nucleated Red Blood Cells % 3.0 % Anisocytosis PRESENT Prothrombin Time 13.1 SECONDS (9.0-12.0) Prothromb Time International Ratio 1.2 (0.9-1.1) Activated Partial Thromboplast Time 27.8 SECONDS (21.0-31.0) Partial Thromboplastin Ratio 1.1 Anion Gap 8.0 mmol/L (3-11) Est Creatinine Clear Calc Drug Dose 136.0 ml/min Estimated GFR () 133.4 Estimated GFR (Non- 115.1 BUN/Creatinine Ratio 38.9 (10-20) Calcium Level 8.3 mg/dl (8.5-10.1) Total Bilirubin 0.5 mg/dl (0.2-1) Aspartate Amino Transf (AST/SGOT) 47 U/L (15-37) Alanine Aminotransferase (ALT/SGPT) 22 U/L (12-78) Alkaline Phosphatase 553 U/L (45-117) Troponin I < 0.015 ng/ml (0-0.045) Total Protein 5.9 gm/dl (6.4-8.2) Albumin 2.8 gm/dl (3.4-5.0) Globulin 3.1 gm/dl (2.5-4.0) Albumin/Globulin Ratio 0.9 (0.9-2) Laboratory results reviewed by me. Medications Administered Medications (Trade) Dose Ordered Sig/Uastin Route Start Time Stop Time Status Last Admin Dose Admin Sodium Chloride 500 ml @ 999 mls/hr Q31M STAT IV 03/13/17 11:28 03/13/17 11:58 DC 03/13/17 12:05 999 MLS/HR Ondansetron HCl (Zofran Inj) 4 mg NOW STAT IV 03/13/17 11:28 03/13/17 11:31 DC 03/13/17 12:05 4 MG Morphine Sulfate (MoRPHine SULFATE INJ) 4 mg Q15M PRN IV 03/13/17 11:30 03/13/17 14:53 DC 03/13/17 12:05 4 MG Lorazepam (Ativan Inj) 0.5 mg NOW STAT IV 03/13/17 13:46 03/13/17 13:47 DC 03/13/17 13:58 0.5 MG ECG Indication: SOB/dyspnea Rate (beats per minute): 86 Rhythm: normal sinus Findings: no acute ischemic change, no ectopy ED Course 1123: The patient was evaluated in room B10. A complete history and physical exam was performed. 1128: Ordered Zofran Inj 4 mg IV, Sodium Chloride 500 ml @ 999 mls/hr IV 1130: Ordered Morphine Sulfate 4 mg IV 1320: I reassessed the patient. She is resting comfortably. I am going to talk to her oncologist to see what they would like to do. 1337: Discussed the patient's case with Dr. Handley - Hematology & Oncology. He recommends admitting the patient to medicine. 1340: Discussed the patient's case with Dr. Sherman who is a resident working with the [facility] Service. The patient will be evaluated for further management. 1341: Upon reexamination the patient is resting comfortably. I discussed results and treatment plan with the patient. She verbalizes agreement and understanding. The patient will be evaluated for further management. 1346: Ordered Ativan Inj 0.5 mg IV 1422: I also discussed the patient's case with Dr. Marley of the [facility] Service. Medical Decision Differential diagnoses considered include medication reaction, anemia, electrolyte imbalance, dysrhythmia, pneumonia, DC, PE, exacerbation of asthma. Medication Reconciliation: I attest that I have personally reviewed the patient' s current medication list. Blood Pressure Screening: Patient was found to have normal blood pressure on screening and does not require follow-up. There is no leukocytosis. She is somewhat anemic with a lower platelet count, these values are likely consistent with her chemotherapy treatment. No concerning electrolyte abnormality or kidney failure. There were a few elevations to her liver enzymes, bilirubin was normal. There was no worrisome coagulopathy. EKG showed a normal sinus rhythm, no acute ischemia. Cardiac enzyme testing times one is not consistent with acute cardiac injury. Chest film shows a moderate size right pleural effusion, no pneumothorax or pneumonia. Chest CT does not show PE, a large right pleural effusion was noted. The patient received IV saline, IV morphine and IV Zofran. She was given IV Ativan, she is resting comfortably. The patient feels short of breath. She has a new pleural effusion which I think is responsible for her symptoms. She has no findings PE. The patient was told the results of her testing, I spoke with her cancer physician. The patient will be brought into the hospital for possible thoracentesis or catheter placement. I spoke to case management. The on-call hospitalist was consulted. Consults Time Called: 1322 Consulting Physician: Dr. Handley - Hematology & Oncology Returned Call: 1337 Discussed the patient's case with Dr. Handley - Hematology & Oncology. He recommends admitting the patient to medicine. Additional Consults: Time Called: 1338 Consulted Physician[place]. [place] [facility] [place] Call: 1341 Additional Comments: Discussed the patient's case with Dr. Sherman who is a resident working with the [facility] Hospitalist Service. The patient will be evaluated for further management. Impression Primary Impression: Shortness of breath Additional Impression: Pleural effusion Scribe Attestation The scribe's documentation has been prepared under my direction and personally reviewed by me in its entirety. I confirm that the note above accurately reflects all work, treatment, procedures, and medical decision making performed by me. Departure Information Dispostion Being Evaluated By Hospitalist Referrals Avila Busch M.D. (PCP) Patient Instructions My [facility] Health Problem Qualifiers
[2017-03-13 12:20] LABS: BASO % 0.7 %; BASO ABS # 0.05 K/uL (0-0.2); HEMATOCRIT 27.8 % (37-47); IG% 2.8 %; LYMPH % 19.7 %; MEAN CELL VOLUME 89.7 fL (80-100); MEAN CORPUSCULAR HEMOGLOBIN 28.1 pg (25-34); MEAN CORPUSCULAR HGB CONC 31.3 g/dl (32-36); MEAN PLATELET VOLUME 8.1 fL (7.4-10.4); MONO % 4.1 %; NEUT % 71.7 %; PLATELET COUNT 129 K/uL (130-400)
[2017-03-13 12:30] LABS: ALB/GLOB RATIO 0.9 (0.9-2); ALKALINE PHOSPHATASE 553 U/L (45-117); ALT/SGPT 22 U/L (12-78); AST/SGOT 47 U/L (15-37); BLOOD UREA NITROGEN 15 mg/dl (7-18); BUN/CREATININE RATIO 38.9 (10-20); CALCIUM 8.3 mg/dl (8.5-10.1); CARBON DIOXIDE 26 mmol/L (21-32); CHLORIDE 103 mmol/L (98-107); CREATININE 0.38 mg/dl (0.60-1.20); GLUCOSE 99 mg/dl (70-99); POTASSIUM 3.7 mmol/L (3.5-5.1); SODIUM 137 mmol/L (136-145)
[2017-03-13 12:40] LABS: INR 1.2 (0.9-1.1); PARTIAL THROMBOPLASTIN RATIO 1.1; PROTHROMBIN TIME (PATIENT) 13.1 SECONDS (9.0-12.0)
[2017-03-13] MEDS ORDERED: OXYC-57 PO (12:42)
[2017-03-13] MEDS ORDERED: FNTTP25 TOP (12:42)
[2017-03-13 12:44] LABS: ANISOCYTOSIS PRESENT; COMPLETE YES
--- NOTE | 2017-03-13 13:10 | DIAGNOSTIC IMAGING REPORT ---
CHEST CTA for PULMONARY ARTERIES CT DOSE: 240.60 mGy.cm HISTORY: Chest pain colon carcinoma TECHNIQUE: Multiaxial CT images of the chest were performed following the intravenous administration of contrast to evaluate the pulmonary arteries. Maximal intensity projection images were also obtained. COMPARISON STUDY: None. FINDINGS: No significant right pleural effusion. Small left effusion. Thoracic aorta is normal in course and caliber. Central catheter in superior vena cava. Nonspecific interstitial prominence throughout both hemithoraces. Enhancement of the central and first order pulmonary vessels is unremarkable. The peripheral lower lobe pulmonary vessels are not diagnostically seen due to respiratory and somatic motion. There are findings of diffuse metastatic bony changes throughout the axial and appendicular skeleton. IMPRESSION: 1. No evidence for main or central pulmonary embolus. 2. Nondiagnostic evaluation of the peripheral vessels of the lower lungs due to respiratory and somatic motion. 3. Large right pleural effusion. 4. Small left effusion. 5. Diffuse bony metastatic change throughout. Electronically signed by: Jatin Nicholas M.D. 03/13/2017 1:08 PM Dictated Date/Time: 03/13/2017 1:02 PM
[2017-03-13] MEDS ORDERED: LORAZEPAM 2 MG/ML 1 ML VIAL IV STA (13:46)
[2017-03-13] MEDS ORDERED: ACETAMINOPHEN 325 MG TAB PO PRN (14:15)
[2017-03-13] MEDS ORDERED: ONDANSETRON INJ 2 MG/ML 2 ML VIAL IV PRN (14:15)
--- NOTE | 2017-03-13 14:15 | History and Physical ---
History & Physical Date & Time of Service: Mar 13, 2017 at 14:04 Chief Complaint: Sob-Chemo Patient-Poss. Blood Clot Primary Care Physician: Avila Busch M.D. History of Present Illness 62 year old female with metastatic colon ca. (signet cell carcinoma, diagnosed January 2017) presents with shortness of breath and chest pain. Progressively worsening over 2 days. Worse on lying down. She does not think it is exertional. She underwent chemotherapy on Friday and felt very tired the following day as per her previous treatment. Currently having more chest discomfort on left side of her chest. Past Medical/Surgical History Medical Problems: (1) Asthma Status: Chronic (2) Colon cancer metastasized to bone Status: Chronic Family History No pertinent family history Social History Smoking Status: Never Smoker Alcohol Use: socially Drug Use: none Marital Status: Housing status: lives with family Occupational Status: employed Multi-Drug Resistant Organisms History of MDRO: No Allergies Coded Allergies: Naproxen (Unverified Allergy, Unknown, UNKNOWN, 03/13/17) Orphenadrine (Unverified Adverse Reaction, Unknown, ALTERED MENTAL STATUS , 03/13/17) Salicylates (Unverified Adverse Reaction, Unknown, ALTERED MENTAL STATUS, 03/13/17) Uncoded Allergies: XANTHINE (Adverse Reaction, Unknown, ALTERED MENTAL STATUS, 02/01/17) Home Medications Scheduled Baclofen (Baclofen), 5 MG PO BID Cholecalciferol (Vitamin D3), 1,000 UNIT PO BID Cyanocobalamin (Vitamin B-12), 1,000 MCG PO BID Diclofenac Sod (Voltaren), 1 APPLN EXT QID Docusate Sodium (Docusate Sodium), 100 MG PO BID Fentanyl (Fentanyl), 1 PATCH TOP Q72H Gabapentin (Neurontin), 1 CAP PO UD Ondasetron Odt (Zofran Odt), 4 MG SL Q6H Scheduled PRN Oxycodone/Acetaminophen 5MG/325MG (Percocet 5MG/325MG), 2 TABLETS PO Q4H PRN for Pain Polyethylene (Miralax), 17 GM PO BID PRN for Constipation Prochlorperazine Maleate (Compazine), 1 TAB PO Q6 PRN for Nausea or Vomiting Review of Systems See HPI for pertinent positives & negatives. A total of 10 systems reviewed and were otherwise negative. Constitutional: No fever, No chills Respiratory: No cough, No sputum Physical Exam Vital Signs Date Time Temp Pulse Resp B/P (MAP) Pulse Ox O2 Delivery O2 Flow Rate FiO2 03/13/17 13:57 94 16 143/79 93 Room Air 03/13/17 12:05 91 Room Air 03/13/17 11:17 96 Room Air 03/13/17 11:17 36.8 95 20 129/66 97 Room Air General Appearance: no apparent distress, + cachetic Head: normocephalic, atraumatic Eyes: normal inspection, PERRL, EOMI Neck: supple, no JVD Respiratory/Chest: no respiratory distress, no accessory muscle use, + pertinent finding (reduced ) Cardiovascular: regular rate, rhythm, no edema, no JVD, no murmur, normal peripheral pulses Abdomen/GI: normal bowel sounds, non tender, soft Back: no CVA tenderness Extremities/Musculoskelatal: normal capillary refill, no pedal edema Neurologic/Psych: no motor/sensory deficits, alert, oriented x 3 Skin: normal color, warm/dry, no rash Diagnostics Laboratory Results Results Past 24 Hours Test 03/13/17 11:50 Range/Units White Blood Count 7.10 4.8-10.8 K/uL Red Blood Count 3.10 4.2-5.4 M/uL Hemoglobin 8.7 12.0-16.0 g/dL Hematocrit 27.8 37-47 % Mean Corpuscular Volume 89.7 80-100 fL Mean Corpuscular Hemoglobin 28.1 25-34 pg Mean Corpuscular Hemoglobin Concent 31.3 32-36 g/dl Platelet Count 129 130-400 K/uL Mean Platelet Volume 8.1 7.4-10.4 fL Neutrophils (%) (Auto) 71.7 % Lymphocytes (%) (Auto) 19.7 % Monocytes (%) (Auto) 4.1 % Eosinophils (%) (Auto) 1.0 % Basophils (%) (Auto) 0.7 % Neutrophils # (Auto) 5.09 1.4-6.5 K/uL Lymphocytes # (Auto) 1.40 1.2-3.4 K/uL Monocytes # (Auto) 0.29 0.11-0.59 K/uL Eosinophils # (Auto) 0.07 0-0.5 K/uL Basophils # (Auto) 0.05 0-0.2 K/uL RDW Standard Deviation 64.1 36.4-46.3 fL RDW Coefficient of Variation 19.7 11.5-14.5 % Immature Granulocyte % (Auto) 2.8 % Immature Granulocyte # (Auto) 0.20 0.00-0.02 K/uL Nucleated RBC Absolute Count (auto) 0.22 0-0 K/uL Nucleated Red Blood Cells % 3.0 % Anisocytosis PRESENT Prothrombin Time 13.1 9.0-12.0 SECONDS Prothromb Time International Ratio 1.2 0.9-1.1 Activated Partial Thromboplast Time 27.8 21.0-31.0 SECONDS Partial Thromboplastin Ratio 1.1 Sodium Level 137 136-145 mmol/L Potassium Level 3.7 3.5-5.1 mmol/L Chloride Level 103 98-107 mmol/L Carbon Dioxide Level 26 21-32 mmol/L Anion Gap 8.0 3-11 mmol/L Blood Urea Nitrogen 15 7-18 mg/dl Creatinine 0.38 0.60-1.20 mg/dl Est Creatinine Clear Calc Drug Dose 136.0 ml/min Estimated GFR () 133.4 Estimated GFR (Non- 115.1 BUN/Creatinine Ratio 38.9 10-20 Random Glucose 99 70-99 mg/dl Calcium Level 8.3 8.5-10.1 mg/dl Total Bilirubin 0.5 0.2-1 mg/dl Aspartate Amino Transf (AST/SGOT) 47 15-37 U/L Alanine Aminotransferase (ALT/SGPT) 22 12-78 U/L Alkaline Phosphatase 553 45-117 U/L Troponin I < 0.015 0-0.045 ng/ml Total Protein 5.9 6.4-8.2 gm/dl Albumin 2.8 3.4-5.0 gm/dl Globulin 3.1 2.5-4.0 gm/dl Albumin/Globulin Ratio 0.9 0.9-2 Diagnostic Radiology SINGLE VIEW CHEST CLINICAL HISTORY: Dyspnea. FINDINGS: An AP, portable, upright chest radiograph is compared to study dated 02/05/2017. The examination is degraded by portable technique and patient rotation. A left subclavian central venous infusion port is unchanged in position. The tip projects over the right atrium. The cardiomediastinal heart is top normal for projection. The pulmonary vasculature is noncongested. Diffuse interstitial thickening is similar to previous. There is a right pleural effusion with right basilar consolidation. A trace left pleural fluid is suspected. No pneumothorax is seen. The skeletal structures are osteopenic. Numerous sclerotic bone lesions are identified, suggesting multifocal metastatic disease.. IMPRESSION: 1. There is a small right pleural effusion with right basilar consolidation. Consolidative change likely represents atelectasis. Correlate clinically for evidence of superimposed pneumonia. This is new from 02/05/2017. 2. Trace pleural fluid is seen at the left base. 3. Numerous sclerotic foci are noted throughout the visualized bony structures and are highly concerning for multifocal osseous metastatic disease. Electronically signed by: Patrick Silva M.D. 03/13/2017 12:01 PM Dictated Date/Time: 03/13/2017 11:56 AM CHEST CTA for PULMONARY ARTERIES CT DOSE: 240.60 mGy.cm HISTORY: Chest pain colon carcinoma TECHNIQUE: Multiaxial CT images of the chest were performed following the intravenous administration of contrast to evaluate the pulmonary arteries. Maximal intensity projection images were also obtained. COMPARISON STUDY: None. FINDINGS: No significant right pleural effusion. Small left effusion. Thoracic aorta is normal in course and caliber. Central catheter in superior vena cava. Nonspecific interstitial prominence throughout both hemithoraces. Enhancement of the central and first order pulmonary vessels is unremarkable. The peripheral lower lobe pulmonary vessels are not diagnostically seen due to respiratory and somatic motion. There are findings of diffuse metastatic bony changes throughout the axial and appendicular skeleton. IMPRESSION: 1. No evidence for main or central pulmonary embolus. 2. Nondiagnostic evaluation of the peripheral vessels of the lower lungs due to respiratory and somatic motion. 3. Large right pleural effusion. 4. Small left effusion. 5. Diffuse bony metastatic change throughout. Electronically signed by: Jatin Nicholas M.D. 03/13/2017 1:08 PM Dictated Date/Time: 03/13/2017 1:02 PM EKG Rate 86 bpm NSR No ischemic changes Normal EKG Impression Assessment and Plan 62 year old female with metastatic colon ca. presents with slowly progressing shortness of breath and chest pain. Large right sided pleural effusion and small left sided - most likely metastatic effusions given Hx. No current sign of infection (normal WBC, no lobar consolidation on CT) - Consult thoracic/surgery/pulmonology regarding insertion of pleurx vs. thoracentesis - Pain management with morphine Atypical chest pain - troponin and EKG negative for OR, given negative cardiac history and clearly has other reason for chest pain will not order serial troponin - most likely due to pleural effusions as above along with metastatic disease. PE in peripheral vessels not ruled out from CT. - trial of duoneb due to history of asthma Shortness of breath - no current shortness of breath and appears to be saturating well Anemia - secondary to chemo and bowel cancer, appears stable and unlikely contributing towards her current symptoms Code - Discussed in detail with the patient and her and she decided against VTE Prophylaxis - SCDs and TEDs, defer chemical anticoagulation despite high risk pending decision regarding chest tube. Disposition - observation status Level of Care Med/Surg Resuscitation Status DO NOT RESUSCITATE VTE Prophylaxis VTE Risk Assessment Done? Y/N: Yes Risk Level: High Given or contraindicated: T.E.D. Stockings, SCD's, Contraindicated (chemical deferred pending thoracocentesis decision) Additional Copies To Avila Busch M.D. Resident Tracking Resident Involvement: Resident Care Provided Care Provided: Adult Hospital Medicine
[2017-03-13 14:42] VITALS: O2SAT 93; Ht 162.6 cm; Wt 60.5 kg
[2017-03-13] MEDS ORDERED: PROCHLORPERAZINE MALEATE 10 MG TAB PO PRN (14:45)
[2017-03-13] MEDS ORDERED: POLYETHYLENE (MIRALAX) 17 GM PACK PO PRN (14:45)
[2017-03-13] MEDS ORDERED: ALBUT/IPRATROP 3MG/0.5MG NEB 3 ML VIAL INH STA (14:51)
[2017-03-13] MEDS ORDERED: IV FLUIDS COMPLETED PRN (15:45)
[2017-03-13] MEDS ORDERED: XYLOCAINE 1%/SOD BICARB 20 ML VIAL INFIL ONE (16:01)
[2017-03-13 17:04] LABS: ISTAT ARTERIAL BLOOD GAS HCO3 23 meq/L (19-24); ISTAT ARTERIAL BLOOD GAS PCO2 33 mmHg (35-46); ISTAT ARTERIAL BLOOD GAS PO2 73 mmHg (80-95); ISTAT ARTERIAL BLOOD GAS pH 7.45 (7.35-7.45); ISTAT CARBON DIOXIDE 24 mEq/l (24-31)
--- NOTE | 2017-03-13 17:18 | DIAGNOSTIC IMAGING REPORT ---
CHEST ONE VIEW PORTABLE CLINICAL HISTORY: s/p thoracentesis COMPARISON STUDY: 03/13/2017 FINDINGS: The cardiac and mediastinal contours remain stable. There is a left-sided A-Port catheter unchanged in position. There is no focal pulmonary consolidation. There is diffuse interstitial thickening. There is evidence for interval right-sided thoracentesis. Only trace pleural fluid persists. There is no pneumothorax.[ IMPRESSION: No evidence of pneumothorax status post thoracentesis Electronically signed by: Mahamed Ramírez M.D. 03/13/2017 5:17 PM Dictated Date/Time: 03/13/2017 5:15 PM
[2017-03-13 17:53] LABS: PLEURAL FLUID TOTAL PROTEIN 3.4 g/dl
--- NOTE | 2017-03-13 18:26 | Medical Consult ---
Consultation Date of Consultation: Mar 13, 2017. Attending Physician: Dr Marley Reason for Consultation: Consideration for admission History of Present Illness Mrs Vásquez is a pleasant 62 year old female with metastatic colon ca. (signet cell carcinoma, diagnosed January 2017) presents with shortness of breath and chest pain. Progressively worsening over 2 days. Worse on lying down. She does not think it is exertional. She underwent chemotherapy on Friday and felt very tired the following day as per her previous treatment. The following day after that she started having worsening shortness of breath. Intermittent chest tightness/discomfort. Unknown duration/onset as it occurs sporadically. No worse on inspiration or palpation. Not sharp or aching. Occurs on right side, center and left side of her chest. Currently having more chest discomfort on left side of her chest. She denies any fever or cough. No palpitations, claudication or current leg swelling (she noticed some bilateral swelling after her first chemotherapy dose but that has subsequently improved). She called her oncologist office this morning and due to concern for PE she was told to go to the ER for further evaluation. Here she has a normal WBC, CT of her chest showed new large right pleural effusion. Past Medical/Surgical History Medical Problems: (1) Asthma Status: Chronic (2) Colon cancer metastasized to bone Status: Chronic (3) Low back pain Status: Acute (4) Lower back pain Status: Acute (5) Malignancy Status: Acute (6) Pelvic pain Status: Acute (7) Pleural effusion Status: Acute (8) Shortness of breath Status: Acute Family History No pertinent family history Social History Smoking Status: Never Smoker Alcohol Use: socially Drug Use: none Marital Status: Housing Status: lives with family Occupation Status: employed Allergies Coded Allergies: Naproxen (Unverified Allergy, Unknown, UNKNOWN, 03/13/17) Orphenadrine (Unverified Adverse Reaction, Unknown, ALTERED MENTAL STATUS , 03/13/17) Salicylates (Unverified Adverse Reaction, Unknown, ALTERED MENTAL STATUS, 03/13/17) Uncoded Allergies: XANTHINE (Adverse Reaction, Unknown, ALTERED MENTAL STATUS, 02/01/17) Home Medications Reported Home Medications Medications Dose Route/Sig Max Daily Dose Days Date Category Dose Instructions Fentanyl 25 Mcg Tdsy 1 Patch TOP Q72H 03/13/17 Reported Percocet 5MG/325MG (Oxycodone/Acetaminophen) Tab 2 Tablets PO Q4H PRN 03/13/17 Reported PAIN Compazine (Prochlorperazine Maleate) 10 Mg Tab 1 Tab PO Q6 PRN 7 03/04/17 Reported Voltaren (Diclofenac Sod) 100 Appln/100 Gm Gel 1 Appln EXT QID 02/06/17 Rx Zofran Odt (Ondansetron HCl) 4 Mg Tab 4 Mg SL Q6H 02/06/17 Rx Miralax (Polyethylene) 17 Gm Pow 17 Gm PO BID PRN 02/06/17 Rx take if not having at least 1BM daily while on colace Docusate Sodium 100 Mg Cap 100 Mg PO BID 02/06/17 Rx Neurontin (Gabapentin) 100 Mg Cap 1 Cap PO UD 30 02/06/17 Rx 200mg in AM, 200mg mid day, 400mg HS Baclofen 10 Mg Tab 5 Mg PO BID 01/29/17 Reported Vitamin D3 (Cholecalciferol) 1,000 Unit Tab 1,000 Unit PO BID 90 01/27/17 Reported Vitamin B-12 (Cyanocobalamin) 1,000 Mcg Tab 1,000 Mcg PO BID 01/27/17 Reported Current Inpatient Medications Current Inpatient Medications Medications (Trade) Dose Ordered Sig/[place] Route Start Time Stop Time Status Last Admin Dose Admin Ioversol (Optiray 320) 125 ml UD PRN IV 03/13/17 11:45 03/17/17 11:44 Acetaminophen (Tylenol Tab) 650 mg Q4H PRN PO 03/13/17 14:15 04/12/17 14:14 Ondansetron HCl (Zofran Inj) 4 mg Q6H PRN IV 03/13/17 14:15 04/12/17 14:14 Baclofen (Lioresal Tab) 5 mg BID PO 03/13/17 21:00 04/12/17 20:59 Cyanocobalamin (Vitamin B-12 Tab) 1,000 mcg BID PO 03/13/17 21:00 04/12/17 20:59 Docusate Sodium (coLACE CAP) 100 mg BID PO 03/13/17 21:00 04/12/17 20:59 Polyethylene (Miralax Powder Packet) 17 gm BID PRN PO 03/13/17 14:45 04/12/17 14:44 Prochlorperazine Maleate (Compazine Tab) 10 mg Q6 PRN PO 03/13/17 14:45 04/12/17 14:44 Morphine Sulfate (MoRPHine SULFATE INJ) 4 mg Q1H PRN IV 03/13/17 15:45 03/27/17 11:29 Miscellaneous (Iv Fluids Completed) 1 ea PRN PRN N/A 03/13/17 15:45 03/13/18 15:44 Review of Systems Constitutional: No fever, No chills Eyes: No worsening of vision ENT: No hearing loss Respiratory: + shortness of breath, No cough, No sputum, No wheezing, No hemoptysis Cardiovascular: + chest pain (see HPI), + orthopnea, + PND, No edema, No claudication, No palpitations Abdomen: No pain, No nausea, No vomiting, No diarrhea, No constipation, No GI bleeding Musculoskeletal: No joint pain, No muscle pain Genitourinary - Female: No dysuria, No urinary frequency Endocrine: + fatigue, No excessive thirst, No excessive urination Hematologic / Lymphatic: No abnormal bleeding/bruising Integumentary: No rash, No itch Physical Exam Date Time Temp Pulse Resp B/P (MAP) Pulse Ox O2 Delivery O2 Flow Rate FiO2 03/13/17 17:15 106 16 132/67 95 Room Air 03/13/17 15:09 94 18 139/75 93 Room Air 03/13/17 14:42 93 Room Air 03/13/17 13:57 94 16 143/79 93 Room Air 03/13/17 12:05 91 Room Air 03/13/17 11:17 96 Room Air 03/13/17 11:17 36.8 95 20 129/66 97 Room Air General Appearance: no apparent distress, + cachetic Head: normocephalic, atraumatic Eyes: normal inspection, PERRL, EOMI Neck: supple, no JVD Respiratory/Chest: no respiratory distress, no accessory muscle use, + decreased breath sounds (right base), + pertinent finding (tender left sided chest wall on palpation but feels different to her normal pain) Cardiovascular: regular rate, rhythm, no edema, no murmur, normal peripheral pulses Abdomen/GI: normal bowel sounds, non tender, soft Extremities/Musculoskelatal: no calf tenderness, normal capillary refill, no pedal edema, non-tender 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, no motor/sensory deficits, alert, oriented x 3 Skin: normal color, warm/dry, no rash Laboratory Results Last 24 Hours Test 03/13/17 00:00 03/13/17 11:50 03/13/17 16:49 03/13/17 16:50 Pleural Fluid Total Protein 3.4 g/dl Pleural Fluid LDH 201 IU Pleural Fluid Glucose 90 mg/dl Pleural Fluid Amylase 24 U/L White Blood Count 7.10 K/uL Red Blood Count 3.10 M/uL Hemoglobin 8.7 g/dL Hematocrit 27.8 % Mean Corpuscular Volume 89.7 fL Mean Corpuscular Hemoglobin 28.1 pg Mean Corpuscular Hemoglobin Concent 31.3 g/dl Platelet Count 129 K/uL Mean Platelet Volume 8.1 fL Neutrophils (%) (Auto) 71.7 % Lymphocytes (%) (Auto) 19.7 % Monocytes (%) (Auto) 4.1 % Eosinophils (%) (Auto) 1.0 % Basophils (%) (Auto) 0.7 % Neutrophils # (Auto) 5.09 K/uL Lymphocytes # (Auto) 1.40 K/uL Monocytes # (Auto) 0.29 K/uL Eosinophils # (Auto) 0.07 K/uL Basophils # (Auto) 0.05 K/uL RDW Standard Deviation 64.1 fL RDW Coefficient of Variation 19.7 % Immature Granulocyte % (Auto) 2.8 % Immature Granulocyte # (Auto) 0.20 K/uL Nucleated RBC Absolute Count (auto) 0.22 K/uL Nucleated Red Blood Cells % 3.0 % Anisocytosis PRESENT Prothrombin Time 13.1 SECONDS Prothromb Time International Ratio 1.2 Activated Partial Thromboplast Time 27.8 SECONDS Partial Thromboplastin Ratio 1.1 Sodium Level 137 mmol/L Potassium Level 3.7 mmol/L Chloride Level 103 mmol/L Carbon Dioxide Level 26 mmol/L Anion Gap 8.0 mmol/L Blood Urea Nitrogen 15 mg/dl Creatinine 0.38 mg/dl Est Creatinine Clear Calc Drug Dose 136.0 ml/min Estimated GFR () 133.4 Estimated GFR (Non- 115.1 BUN/Creatinine Ratio 38.9 Random Glucose 99 mg/dl Calcium Level 8.3 mg/dl Total Bilirubin 0.5 mg/dl Aspartate Amino Transf (AST/SGOT) 47 U/L Alanine Aminotransferase (ALT/SGPT) 22 U/L Alkaline Phosphatase 553 U/L Troponin I < 0.015 ng/ml Total Protein 5.9 gm/dl Albumin 2.8 gm/dl Globulin 3.1 gm/dl Albumin/Globulin Ratio 0.9 Pleural Fluid pH 7.45 Bedside Blood Gas pH (LAB) 7.45 Bedside Blood Gas pCO2 (LAB) 33 mmHg Bedside Blood Gas pO2 (LAB) 73 mmHg Bedside Blood Gas HCO3 (LAB) 23 meq/L Bedside Blood Gas Total CO2 24 mEq/l Bedside Blood Gas Base Excess (LAB) -1.0 meq/L Bedside Blood Gas O2 Saturation 95.0 % Assessment & Plan 62 year old female with metastatic colon ca. presents with slowly progressing shortness of breath and chest pain. Large right sided pleural effusion and small left sided - most likely metastatic effusions given Hx. No current sign of infection (normal WBC, no lobar consolidation on CT) - Pain management with fentanyl patch and Percocet for breakthrough pain - Patient was discussed with Dr Monet who kindly evaluated the patient in the ER and performed thoracocentesis (please see separate note). On initial analysis this does appear to exudative as expected for malignant pleural effusion. Atypical chest pain - troponin and EKG negative for VT, given negative cardiac history and clearly has other reason for chest pain will not order serial troponin - most likely due to pleural effusions as above along with metastatic disease. PE in peripheral vessels not ruled out from CT and this was discussed with the patient. - trial of DuoNeb did not help with chest tightness therefore she is unlikely to benefit from continued use of this. Shortness of breath - no current shortness of breath and appears to be saturating well Anemia - secondary to chemo and bowel cancer, appears stable and unlikely contributing towards her current symptoms Disposition - She is medical stable and keen to go home s/p thoracocentesis. She will follow up with her oncologist and Dr Monet. She was advised if worsening symptoms or fever to return to the ER immediately. Recommended to keep her head elevated while sleeping to help with her shortness of breath on lying flat. Additional Copies To Avila Busch M.D.; Jose R Handley D.O.; Abdoulaye Monet MD Assessment and Plan Attending Addendum: I physically seen and examined this patient, have supervised the medical residents activities, and agree with the H&P as noted above with the following exceptions: NONE The patient is awake, well-developed and adequately nourished, alert and oriented 3, normocephalic and atraumatic, lying in bed and in no acute distress. HEENT--PERRL, EOMI, mucous membranes and oropharynx dry. Neck--supple, no JVD or bruits, thyroid normal, trachea midline, no adenopathy. Heart--normal S1 and S2, no extra beats, no murmurs, rubs or gallops. Lungs--decreased breath sounds at the bases bilaterally, right worse than left, no respiratory distress, no accessory muscle use. Abdomen--normal bowel sounds and soft, nontender and nondistended, no hernias or masses, no organomegaly. Extremities--no cyanosis, clubbing. Trace bilateral pretibial pitting edema. There are good distal pulses b/l. Dermatologic--normal skin turgor, normal color, warm and dry, no abnormal lymph nodes, no rash. Neurologic--cranial nerves II through XII grossly intact. Rheumatologic--normal range of motion. Psychiatric--normal affect. Assessment and Plan: 1. Bilateral pleural effusion, right significantly greater than left, likely metastatic--patient underwent thoracentesis by Dr. Monet for right pleural effusion while in the emergency department. She was feeling significantly improved after the thoracentesis, and preferred to go home to follow-up with her oncologist Dr. Handley, and Dr. Monet later in the week. She was therefore discharged, and is aware to return to the emergency department immediately if there is any return of symptoms, or develop of any new symptoms, including fever.
[2017-03-13 18:29] VITALS: BP 128/66; PULSE 92; TEMP 36.5; O2SAT 96
[2017-03-13 20:13] LABS: PLEURAL FLUID APPEARANCE CLOUDY; PLEURAL FLUID COLOR PALE YELLOW; PLEURAL FLUID SOURCE RIGHT LUNG; PLEURAL FLUID WBC (A) 900 /uL
[2017-03-13] MEDS ORDERED: DOCUSATE SODIUM 100 MG CAP PO SCH (21:00)
[2017-03-13] MEDS ORDERED: CYANOCOBALAMIN 500 MCG TAB (VIT B-12) PO SCH (21:00)
[2017-03-13] MEDS ORDERED: BACLOFEN 10 MG TAB PO SCH (21:00)
--- NOTE | 2017-03-14 10:37 | Medical Consult ---
Consultation Note Date of Service Mar 13, 2017. Consultation Note Surgery consultation note 03/13/2017 Reason for consultation: Right pleural effusion History of present illness: This is a 62-year-old female who was recently diagnosed with metastatic colon cancer. 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 She's never smoked. She is just received her second cycle of chemotherapy. Last 48 hours she became progressively short of breath and was found have a new right pleural effusion. Dr. Handley sent her to the emergency room where the CT scan was performed. I was asked to see her in the emergency room by Dr. Sherman from the [facility] about draining or placing a Pleurx catheter into the patient's right pleural cavity. A long talk with the patient and her who was in the room. We discussed the merits, risk, and benefits, the thoracentesis, a Pleurx catheter, a regular chest tube, or even thoracoscopy. They understand. After long discussion we' ve elected to proceed with the thoracentesis. Past medical history: Asthma Colon cancer with bony metastases Past surgical history: 1 para 1 abortus 0 Medications: Fentanyl patch Percocet Full Carmen gel Compazine Baclofen Neurontin MiraLAX Colace Zofran Compazine Allergies: Naprosyn Orphenadrine Salicylates Xanthine Social history: The patient lives with her . She has never smoked cigarettes. 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 Family medical history: Noncontributory Review of systems: Patient is become much more fatigued. The chemotherapy "as taken the wind out of my sales ". She was anemic and received 2 units of packed cells recently. She denies night sweats. She had no productive cough but is been markedly short of breath. She has some constipation which may be due to her colon cancer. She denies any skin breakdown. She's had no visual or auditory symptoms. She has marked dyspnea. She denies palpitations. Does have some left-sided chest pain. She's had no other neurologic symptoms. Physical exam: Well-developed well-nourished female who appears her stated age of 62. She wears glasses. Her extraocular movements are intact. Her sclerae are pale but anicteric. She has no nasolabial flattening. Her teeth are in excellent repair. Tongue is midline. Oral mucosa is moist. She has no leukoplakia. Her neck is supple. I do not detect any supraclavicular cervical lymphadenopathy. She has no carotid bruits. Chest decreased breath sounds in the left base. She has a regular rate and rhythm of her heart. She has no sniffed rub. Her abdomen is a bit tender mildly but she has good bowel sounds and is soft. She good femoral pulses. I can palpate posterior tibialis pulses. She has no edema of her lower extremities although she states that she' s recently had some swelling. No joint effusions. Neurologically she is awake alert and oriented. Data: CT scan of her chest shows no evidence of pulmonary embolism however, she does have an homogenous effusion which is layering out in her right chest. I see no obvious parenchymal masses. She was is not much in the way of adenopathy either. Assessment/plan: Right pleural effusion which is rather acute. I had a long talk to the patient and her . In all probability, this is a malignant pleural effusion. Having said that she is reticent to have another tube placed. We'll do a thoracentesis and assess her response. She could be discharged if she has a good response or we can follow her up. In the hospital. We will manage her pleural effusion from here out. Leg thank Dr. Sherman and Dr. Handley for asking me to see this patient. Dr. Abdoulaye Monet M.D. FACS
--- NOTE | 2017-03-14 10:39 | Procedure Note ---
Procedure Note Date of Service Mar 13, 2017. Procedure Note Procedure: Right thoracentesis under ultrasound guidance Surgeon Dr. Monet Asst.: Chris RAGLAND Procedure: With the patient in the seated position at the bedside in the emergency room her right chest was evaluated with an ultrasound. A window was selected at about the eighth interspace in the posterior axillary line. This was marked with indelible ink. The patient was prepped and draped in usual sterile fashion. A 25-gauge needle was used to anesthetize the skin subspace tissues with 1% Xylocaine without epinephrine. A large bore needle was used to anesthetize the deeper tissues and pleural BX free-flowing yellowish fluid back. A guidewire was inserted through the needle needle removed. Dilator was slid over the guidewire to enlarge insertion tract and removed. Triple lumen cath was slid and 17 cm and the guidewire removed. 750 mL of the turbid yellow fluid was drained. The pH was 7.40. She had reexpansion pain but otherwise tolerated this quite well. An x-ray showed that we had drained the fluid without a pneumothorax. She tolerated well. Dr. Monet
[2017-04-11] MEDS ORDERED: DOCU100C31 PO (10:29)
[2017-04-11] MEDS ORDERED: voltaren gel (10:31)
[2017-04-11] MEDS ORDERED: ACET-1311 PO (10:32)
[2017-04-11] MEDS ORDERED: ONDA4TAB46 PO (10:32)
[2017-04-11] MEDS ORDERED: POLY335019 PO (10:32)
== END 2017-03-13 18:31 | disposition home or self-care (01) ==
LOC: C.EDB 11:13 → CANRESERV 15:24 → ENRESERV 15:24 → CANBEDREQ 18:27 → C.EDB 18:31
DX: R06.02 Shortness of breath (principal); J90 Pleural effusion, not elsewhere classified; J45.909 Unspecified asthma, uncomplicated; Z85.830 Personal history of malignant neoplasm of bone; Z79.899 Other long term (current) drug therapy; Z88.8 Allergy status to other drugs, medicaments and biological substances; Z92.21 Personal history of antineoplastic chemotherapy

== ENCOUNTER 2017-03-21 15:17 | Emergency (ER) | payer OTHER ==
[~2017-03-21] VITALS: Ht 162.6 cm; Wt 59.0 kg
[~2017-03-21 15:17] MED LIST changes: +FNTTP25 TOP; +OXYC-57 PO; -OXYC-88 PO
[2017-03-21 15:39] VITALS: TEMP 36.6; Ht 162.6 cm; Wt 59.0 kg
[2017-03-21 16:36] VITALS: O2SAT 95
--- NOTE | 2017-03-21 16:50 | DIAGNOSTIC IMAGING REPORT ---
CHEST ONE VIEW PORTABLE CLINICAL HISTORY: EVALUATE RESPIRATORY DISTRESS. DYSPNEA COMPARISON STUDY: 03/13/2017 FINDINGS: Diffuse chronic interstitial prominence. Central catheter in the superior vena cava. Trace pleural fluid on the right. IMPRESSION: Chronic interstitial prominence. Very small right effusion The above report was generated using voice recognition software. It may contain grammatical, syntax or spelling errors. Electronically signed by: Jatin Nicholas M.D. 03/21/2017 4:49 PM Dictated Date/Time: 03/21/2017 4:48 PM
[2017-03-21] MEDS ORDERED: GABAPENTIN 600 MG TAB PO STA (16:57)
[2017-03-21] MEDS ORDERED: GABA1CAP5 PO (16:58)
[2017-03-21] MEDS ORDERED: GABA-112 PO (16:58)
[2017-03-21] MEDS ORDERED: NRN100 PO (16:58)
--- NOTE | 2017-03-21 17:02 | EMERGENCY ROOM VISIT NOTE ---
History Report prepared by Keo: Geovanna Gregory Under the Supervision of: Dr. Ric Welch D.O. First contact with patient: 16:36 Chief Complaint: RESPIRATORY PROBLEMS Stated Complaint: TIGHTNESS IN CHEST, HARD TO BREATHE Nursing Triage Summary: pt to the ED with colon cancer stage 4 with mets to bones, was here previously in ED for getting fluid drained out of lung. having SOB and tightness in chest and sent in by MD hernandez getting chemo, last march 10 History of Present Illness The patient is a 62 year old female who presents to the Emergency Room with complaints of chest pain. The patient states that she's been noticing shortness of breath and chest tightness. She states that the symptoms began a few days ago. She rates her discomfort as a 6/10. She is a history of a right sided pleural effusion which was drained earlier this month by the Dr. Hernandez. The patient tried to call her cardiothoracic surgeon and was referred to the emergency department. She denies having any cough or fever. She doesn't notice any pain in the legs at this point but notes a small amount of swelling. She's not had any recent traveling. She states that she was seen in our facility for similar complaints at the beginning of the month and at that time had a complete workup including a CT the chest. She was found to have an effusion which was drained and this seems to have decreased her symptoms at that time. The patient does not wish to have any pain medication at this time. Source of History: patient Onset: a few days ago Position: chest Symptom Intensity: 6/10 Associated Symptoms: + SOB, No fevers, No cough Review of Systems See HPI for pertinent positives & negatives. A total of 10 systems reviewed and were otherwise negative. Past Medical & Surgical Medical Problems: (1) Asthma (2) Colon cancer metastasized to bone (3) Intractable low back pain Family History No pertinent family history Social History Smoking Status: Never Smoker Alcohol Use: none Drug Use: none Marital Status: Housing Status: lives with family Occupation Status: employed Current/Historical Medications Scheduled Baclofen (Baclofen), 5 MG PO BID Cholecalciferol (Vitamin D3), 1,000 UNIT PO BID Cyanocobalamin (Vitamin B-12), 1,000 MCG PO BID Diclofenac Sod (Voltaren), 1 APPLN EXT QID Docusate Sodium (Docusate Sodium), 100 MG PO BID Fentanyl (Fentanyl), 1 PATCH TOP Q72H Gabapentin (Gabapentin), 200 MG PO QAM Gabapentin (Neurontin), 200 MG PO AFTERNOON Gabapentin (Neurontin), 400 MG PO HS Ondasetron Odt (Zofran Odt), 4 MG SL Q6H Scheduled PRN Oxycodone/Acetaminophen 5MG/325MG (Percocet 5MG/325MG), 2 TABLETS PO Q4H PRN for Pain Polyethylene (Miralax), 17 GM PO BID PRN for Constipation Prochlorperazine Maleate (Compazine), 1 TAB PO Q6 PRN for Nausea or Vomiting Allergies Coded Allergies: Aspirin (Unverified Allergy, Unknown, UNKNOWN, 03/21/17) Caffeine (Unverified Allergy, Unknown, UNKNOWN, 03/21/17) Naproxen (Unverified Allergy, Unknown, UNKNOWN, 03/13/17) Orphenadrine (Unverified Adverse Reaction, Unknown, ALTERED MENTAL STATUS , 03/13/17) Salicylates (Unverified Adverse Reaction, Unknown, ALTERED MENTAL STATUS, 03/13/17) Uncoded Allergies: XANTHINE (Adverse Reaction, Unknown, ALTERED MENTAL STATUS, 02/01/17) Physical Exam Vital Signs Date Time Temp Pulse Resp B/P (MAP) Pulse Ox O2 Delivery O2 Flow Rate FiO2 03/21/17 19:26 83 20 118/68 97 03/21/17 17:39 85 16 127/59 99 Room Air 03/21/17 17:10 87 03/21/17 16:36 95 Room Air 03/21/17 16:36 Room Air 03/21/17 15:39 36.6 90 20 121/64 97 Room Air Physical Exam GENERAL: Patient is awake, alert in no acute distress patient is resting comfortably and showing no signs of anxiety EYES: The conjunctivae are clear. The pupils are round and reactive. EARS, NOSE, MOUTH AND THROAT: The nose is without any evidence of any deformity. Mucous membranes are moist tongue is midline NECK: The neck is nontender and supple. RESPIRATORY: Normal respiratory effort is noted there is no evidence of wheezing rhonchi or rales CARDIOVASCULAR: Regular rate and rhythm noted there no murmurs rubs or gallops normal S1 normal S2 GASTROINTESTINAL: The abdomen is soft. Bowel sounds are present in all quadrants. Abdomen is nontender MUSCULOSKELETAL/EXTREMITIES: There is no evidence of gross deformity full range of motion is noted in the hips and shoulders SKIN: There is no obvious evidence of any rash. There are no petechiae, pallor or cyanosis noted. NEUROLOGIC: Patient is awake alert and oriented x3. Medical Decision & Procedures ER Provider Diagnostic Interpretation: Radiology results as stated below per my review and radiologist interpretation: CHEST ONE VIEW PORTABLE CLINICAL HISTORY: EVALUATE RESPIRATORY DISTRESS. DYSPNEA COMPARISON STUDY: 03/13/2017 FINDINGS: Diffuse chronic interstitial prominence. Central catheter in the superior vena cava. Trace pleural fluid on the right. IMPRESSION: Chronic interstitial prominence. Very small right effusion The above report was generated using voice recognition software. It may contain grammatical, syntax or spelling errors. Electronically signed by: Jatin Nicholas M.D. 03/21/2017 4:49 PM Laboratory Results 03/21/17 17:05 Red Blood Count 2.77, Mean Corpuscular Volume 92.4, Mean Corpuscular Hemoglobin 28.9, Mean Corpuscular Hemoglobin Concent 31.3, Mean Platelet Volume 8.7 03/21/17 17:05 Test 03/21/17 17:05 03/21/17 18:20 White Blood Count 8.50 K/uL (4.8-10.8) Red Blood Count 2.77 M/uL (4.2-5.4) Hemoglobin 8.0 g/dL (12.0-16.0) Hematocrit 25.6 % (37-47) Mean Corpuscular Volume 92.4 fL (80-100) Mean Corpuscular Hemoglobin 28.9 pg (25-34) Mean Corpuscular Hemoglobin Concent 31.3 g/dl (32-36) Platelet Count 123 K/uL (130-400) Mean Platelet Volume 8.7 fL (7.4-10.4) RDW Standard Deviation 68.1 fL (36.4-46.3) RDW Coefficient of Variation 20.8 % (11.5-14.5) Nucleated RBC Absolute Count (auto) 0.37 K/uL (0-0) Neutrophils % (Manual) 67.5 % Lymphocytes % (Manual) 17.5 % Monocytes % (Manual) 4.4 % Eosinophils % (Manual) 0.9 % Metamyelocytes % 4.4 % Myelocytes % 5.3 % Nucleated Red Blood Cells % 4.4 % Neutrophils # (Manual) 5.74 K/uL (1.4-6.5) Total Absolute Neutrophils 5.74 K/uL (1.4-6.5) Lymphocytes # (Manual) 1.49 K/uL (1.2-3.4) Total Absolute Lymphocytes 1.49 K/uL (1.2-3.4) Monocytes # (Manual) 0.37 K/uL (0.11-0.59) Eosinophils # (Manual) 0.08 K/uL (0-0.5) Metamyelocytes # 0.37 K/uL (0-0) Myelocytes # 0.45 K/uL (0-0) Polychromasia 1+ Anisocytosis PRESENT Helmet Cells OCCASIONAL Prothrombin Time 12.0 SECONDS (9.0-12.0) Prothromb Time International Ratio 1.1 (0.9-1.1) Activated Partial Thromboplast Time 23.5 SECONDS (21.0-31.0) Partial Thromboplastin Ratio 0.9 Anion Gap 8.0 mmol/L (3-11) Est Creatinine Clear Calc Drug Dose 103.4 ml/min Estimated GFR () 121.9 Estimated GFR (Non- 105.2 BUN/Creatinine Ratio 25.4 (10-20) Calcium Level 9.1 mg/dl (8.5-10.1) Total Bilirubin 0.3 mg/dl (0.2-1) Aspartate Amino Transf (AST/SGOT) 28 U/L (15-37) Alanine Aminotransferase (ALT/SGPT) 17 U/L (12-78) Alkaline Phosphatase 435 U/L (45-117) Troponin I < 0.015 ng/ml (0-0.045) Pro-B-Type Natriuretic Peptide 322 pg/ml (0-900) Total Protein 6.4 gm/dl (6.4-8.2) Albumin 3.0 gm/dl (3.4-5.0) Globulin 3.4 gm/dl (2.5-4.0) Albumin/Globulin Ratio 0.9 (0.9-2) Urine Color YELLOW Urine Appearance CLEAR (CLEAR) Urine pH 6.5 (4.5-7.5) Urine Specific [place] 1.006 (1.000-1.030) Urine Protein NEG (NEG) Urine Glucose (UA) NEG (NEG) Urine Ketones 1+ (NEG) Urine Occult Blood TRACE (NEG) Urine Nitrite NEG (NEG) Urine Bilirubin NEG (NEG) Urine Urobilinogen NEG (NEG) Urine Leukocyte Esterase MODERATE (NEG) Urine WBC (Auto) 5-10 /hpf (0-5) Urine RBC (Auto) 0-4 /hpf (0-4) Urine Hyaline Casts (Auto) 0 /lpf (0-5) Urine Epithelial Cells (Auto) 20-30 /lpf (0-5) Urine Bacteria (Auto) NEG (NEG) Laboratory results per my review. Medications Administered Medications (Trade) Dose Ordered Sig/[place] Route Start Time Stop Time Status Last Admin Dose Admin Gabapentin (Neurontin Cap) 200 mg NOW STAT PO 03/21/17 17:05 03/21/17 17:06 DC 03/21/17 17:25 200 MG ECG Indication: chest pain Rate (beats per minute): 78 Rhythm: normal sinus Findings: no acute ischemic change, no ectopy Change: no significant change (03/13/2017) ED Course 1635: The patient was evaluated in room B9. A complete history and physical examination were performed. 1705: Gabapentin 200 mg PO. 1820: I reevaluated the patient. She is feeling better and resting comfortably. 1830: I discussed the patients case with Dr. Handley, [facility] [place] [facility]. He recommends close follow up. 1920: I reevaluated the patient. She is feeling better. I discussed her results and discharge instructions and she verbalized complete understanding and agreement. Medical Decision Medication Reconciliation: I attest that I have personally reviewed the patient' s current medications list. Blood pressure screening: Patient was found to have normal blood pressure on screening and does not require follow-up. Prior records/ancillary studies reviewed. Triage Nursing notes reviewed. Differential diagnosis: Etiologies such as cardiac ischemia, aortic dissection, pulmonary embolism, pneumonia, pneumothorax, musculoskeletal, infections, pericarditis, myocarditis , esophageal rupture, gastrointestinal, as well as others were entertained. The patient is a 62-year-old female who presented to the emergency department for an evaluation of chest discomfort and difficulty breathing. The patient has had a similar episode in the past. 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 At that time she had a CT the chest for the possibility of venous thromboembolic disease. The patient presents back to the emergency department today with similar discomfort. I discussed the patient's laboratory and radiographic studies with her. She was not hypoxic or tachycardic. She appears to have slightly worsening and compared to her baseline hemoglobin. She does have a history of metastatic cancer which is invading her bone marrow. At this time I do not feel she requires a CT the chest again. I discussed the patient's laboratory and radiographic studies with her. I also discussed her case with her primary oncologist. At this time I recommended outpatient follow-up but she was encouraged to return to the emergency department immediately if symptoms change worsen or the need arises. I also discussed the possibility that if she were to return and symptoms and her presentation warranted she may require CT the chest. She was agreeable with this plan. Consults Time Called: 1914 Consulting Physician: Dr. Handley [facility] [place] [facility] Returned Call: 1919 I discussed the patients case with Dr. Handley [facility] [place] [facility]. He recommends close follow up. Impression Primary Impression: Chest pain Additional Impressions: SOB (shortness of breath) Anemia Pleural effusion Scribe Attestation The scribe's documentation has been prepared under my direction and personally reviewed by me in its entirety. I confirm that the note above accurately reflects all work, treatment, procedures, and medical decision making performed by me. Departure Information Dispostion Home / Self-Care Referrals Avila Busch M.D. (PCP) Patient Instructions ED Dyspnea Shortness of Breath, ED Effusion Pleural, My [facility] Additional Instructions Continue all medications as prescribed. Rest and avoid any strenuous activity. Return to the emergency department immediately if symptoms change worsen or the need arises. Problem Qualifiers Primary Impression: Chest pain Chest pain type: unspecified Qualified Codes: R07.9 - Chest pain, unspecified Additional Impressions: Anemia Anemia type: unspecified type Qualified Codes: D64.9 - Anemia, unspecified
[2017-03-21] MEDS ORDERED: GABAPENTIN 100 MG CAP PO STA (17:05)
[2017-03-21 17:25] LABS: HEMATOCRIT 25.6 % (37-47); MEAN CELL VOLUME 92.4 fL (80-100); MEAN CORPUSCULAR HEMOGLOBIN 28.9 pg (25-34); MEAN CORPUSCULAR HGB CONC 31.3 g/dl (32-36); MEAN PLATELET VOLUME 8.7 fL (7.4-10.4); PLATELET COUNT 123 K/uL (130-400); RED BLOOD COUNT 2.77 M/uL (4.2-5.4)
[2017-03-21 17:34] LABS: INR 1.1 (0.9-1.1); PARTIAL THROMBOPLASTIN RATIO 0.9
[2017-03-21 17:42] LABS: ALT/SGPT 17 U/L (12-78); BLOOD UREA NITROGEN 13 mg/dl (7-18); BUN/CREATININE RATIO 25.4 (10-20); CALCIUM 9.1 mg/dl (8.5-10.1); CARBON DIOXIDE 27 mmol/L (21-32); CHLORIDE 104 mmol/L (98-107); GLUCOSE 83 mg/dl (70-99); POTASSIUM 3.7 mmol/L (3.5-5.1); SODIUM 139 mmol/L (136-145)
[2017-03-21 17:49] LABS: ALB/GLOB RATIO 0.9 (0.9-2); ALKALINE PHOSPHATASE 435 U/L (45-117); AST/SGOT 28 U/L (15-37)
[2017-03-21 18:07] LABS: ANISOCYTOSIS PRESENT; COMPLETE YES; EOSINOPHIL % 0.9 %; HELMET CELLS OCCASIONAL; LYMPH ABS # 1.49 K/uL (1.2-3.4); LYMPHOCYTE % 17.5 %; META ABS # 0.37 K/uL (0-0); METAMYELOCYTE % 4.4 %; MYELOCYTE % 5.3 %; NEUTROPHILS % 67.5 %; POLYCHROMASIA 1+
[2017-03-21 18:40] LABS: URINE APPEARANCE CLEAR (CLEAR); URINE BILIRUBIN NEG (NEG); URINE COLOR YELLOW; URINE EPITHELIAL CELL AUTO 20-30 /lpf (0-5); URINE NITRITE NEG (NEG); URINE PH 6.5 (4.5-7.5); URINE SPECIFIC GRAVITY 1.006 (1.000-1.030); UROBILINOGEN NEG (NEG)
[2017-03-21 18:41] LABS: MANUAL MICROSCOPIC REQUIRED? NO; REVIEW REQ? NO
[2017-03-21 19:26] VITALS: BP 118/68; PULSE 83; O2SAT 97
== END 2017-03-21 19:27 | disposition home or self-care (01) ==
LOC: C.EDB 15:27
DX: J90 Pleural effusion, not elsewhere classified (principal); D64.9 Anemia, unspecified; J45.909 Unspecified asthma, uncomplicated; M54.5 Low back pain; Z85.830 Personal history of malignant neoplasm of bone; Z92.21 Personal history of antineoplastic chemotherapy; Z85.038 Personal history of other malignant neoplasm of large intestine; Z79.899 Other long term (current) drug therapy

== ENCOUNTER → 2017-04-01 | Outpatient (CLI) | payer OTHER ==
[~2017-04-01] MED LIST changes: +ACET-1311 PO; +DOCU100C31 PO; +GABA-112 PO; -GABA1CAP PO; +GABA1CAP5 PO; +NRN100 PO; +ONDA4TAB46 PO; +POLY335019 PO; +voltaren gel
--- NOTE | 2017-04-01 09:31 | DIAGNOSTIC IMAGING REPORT ---
CHEST 2 VIEWS ROUTINE HISTORY: 62 years-old Female J90 pleural effusion COMPARISON: Chest radiograph 03/21/2017 TECHNIQUE: PA and lateral views of the chest FINDINGS: Cardiomediastinal and hilar silhouettes are within normal limits. Left subclavian [id number]-i-[id number] catheter is again seen with distal tip in the region of the right atrium. There is no pneumothorax. Small right pleural effusion is again seen with patchy bibasilar opacities. Chronic diffuse reticular opacities are again seen. Upper abdominal structures are within normal limits. The bones are grossly intact. IMPRESSION: 1. Stable appearance of the chest with persistent small right pleural effusion and bibasilar opacities suggesting atelectasis or pneumonitis. 2. Chronic reticular opacities are unchanged. The above report was generated using voice recognition software. It may contain grammatical, syntax or spelling errors. Electronically signed by: Werner Nugent M.D. 04/01/2017 9:30 AM Dictated Date/Time: 04/01/2017 9:28 AM
== END | disposition home or self-care (01) ==
LOC: C.RAD1850 09:12
PROVIDERS: ATTEND Surgery
DX: J90 Pleural effusion, not elsewhere classified (principal); R91.8 Other nonspecific abnormal finding of lung field

== ENCOUNTER → 2017-04-16 | Outpatient (CLI) | payer OTHER ==
[~2017-04-16] MED LIST changes: -CLC100 PO; -MRLP17X PO; -ONDA4TAB10 SL; -VLTG EXT
== END | disposition home or self-care (01) ==
LOC: C.PAPS 15:49
PROVIDERS: ATTEND Obstetrics & Gynecology
DX: Z12.4 Encounter for screening for malignant neoplasm of cervix (principal); R87.610 Atypical squamous cells of undetermined significance on cytologic smear of cervix (ASC-US)

== ENCOUNTER → 2017-05-02 | Outpatient (CLI) | payer OTHER ==
--- NOTE | 2017-05-02 13:35 | MAMMOGRAPHY REPORT ---
UNILATERAL LEFT DIGITAL DIAGNOSTIC MAMMOGRAM TOMOSYNTHESIS WITH CAD AND TARGETED LEFT ULTRASOUND: 04/09 CLINICAL HISTORY: The patient had diffuse left breast pain approximately 2 weeks ago during the time of her clinical breast exam. The pain has since subsided. On questioning, she reports multiple poss ible left breast lumps. She has stage IV colon cancer with bone metastases including rib metastases. TECHNIQUE: Breast tomosynthesis in addition to standard 2D mammography was performed. Current study was also evaluated with a Computer Aided Detection (CAD) system. Left CC and MLO 2-D and tomosynthes is images were obtained. COMPARISON: Comparison is made to exams dated: 08/07/2016 mammogram, 04/04/2015 mammogram, 04/19/2014 mammogram, 03/21/2014 mammogram, 06/22/2013 mammogram, and 09/27/2009 mammogram - [facility]. BREAST COMPOSITION: The tissue of the left breast is heterogeneously dense, which may obscure small masses. FINDINGS: There are no suspicious masses, calcifications, or areas of architectural distortion noted within the left breast. There has been no significant interval change compared to prior exams. A p ort catheter overlies the left pectoralis muscle. Mass with an associated biopsy marker clip in the left breast at approximately 3:00 is not significantly changed mammographically. The mass was biopsi ed and yielded benign pathology. A few scattered benign-appearing calcifications are stable. Targeted ultrasound was performed of the area of multiple breast lumps pointed out by the patient. T here were approximately 6 palpable lumps pointed out by the patient, involving the left 6:00 breast, left 3:00 breast 5 cm from the nipple, left 2:30 breast, 6 and 4 cm from the nipple, left 1:00 breast 5 cm from the nipple, and left 12:00 periareolar breast. No suspicious masses or other suspicious s onographic abnormalities are evident at the site of the palpable lumps. Incidentally noted in the le ft breast at 6:00, 3 cm from the nipple are 2 anechoic benign cysts, one measuring 2 mm and the other measuring 4 x 4 mm (some of the images are mislabeled as left 3:00 breast but are actually of the 6: 00 breast). In the left breast at 4:00, 2 cm from the nipple, again noted is a hypoechoic 7 x 6 x 6 mm mass with an echogenic biopsy marker clip seen within it. The mass does not appear significantly changed compared to prior exams and was previously biopsied and yielded benign pathology. IMPRESSION: ACR BI-RADS CATEGORY 2: BENIGN, TARGETED ULTRASOUND ACR BI-RADS CATEGORY 2: BENIGN No suspicious mammographic or sonographic abnormality at the site of multiple left breast lumps point ed out by the patient. No etiology for resolving diffuse left breast pain is evident. There is no m ammographic or targeted sonographic evidence of malignancy. Recommend clinical follow-up for left br east complaints, and recommend routine bilateral screening mammograms which are due July 2017. The patient has been verbally notified of the results. Approximately 10% of breast cancers are not detected with mammography. A negative mammographic report should not delay biopsy if a clinically suggestive mass is present. Shasta Griffin M.D. ah/:05/02/2017 10:58:[address] Light: Diana AREVALO)([place]), [facility] letter sent: Normal 1/2 BI-RADS Code: ACR BI-RADS Category 2: Benign Ultrasound BI-RADS: ACR BI-RADS Category 2: Benign
== END | disposition home or self-care (01) ==
LOC: C.MAMM 09:50
PROVIDERS: ATTEND Internal Medicine Hematology & Oncology
DX: N64.4 Mastodynia (principal)

== ENCOUNTER 2017-08-03 00:59 | Emergency (ER) | payer BC, OTHER ==
[~2017-08-03] VITALS: Ht 165.1 cm; Wt 57.3 kg
[2017-08-03 01:07] VITALS: Ht 165.1 cm; Wt 57.3 kg
[2017-08-03] MEDS ORDERED: SODIUM CHLORIDE 0.9% 1000ML 1,000 ML IV STA ×3 (01:25→04:46)
[2017-08-03] MEDS ORDERED: MoRPHine SULFATE 4 MG/ML 1 ML CARP\\VIAL IV STA (01:25)
[2017-08-03] MEDS ORDERED: ONDANSETRON 8 MG/54 ML D5W IV STA (01:25)
[2017-08-03 01:51] LABS: URINE APPEARANCE CLOUDY (CLEAR); URINE BILIRUBIN NEG (NEG); URINE COLOR DK YELLOW; URINE EPITHELIAL CELL AUTO >30 /lpf (0-5); URINE NITRITE NEG (NEG); URINE SPECIFIC GRAVITY 1.028 (1.000-1.030); UROBILINOGEN NEG (NEG); ZZUR CULT IF INDIC CLEAN CATCH YES
[2017-08-03 01:53] LABS: MANUAL MICROSCOPIC REQUIRED? NO; REVIEW REQ? YES
[2017-08-03 02:01] LABS: URINE MUCUS PRESENT (NONE PRSENT)
[2017-08-03] MEDS ORDERED: ONDANSETRON INJ 8 MG in DEXTROSE 5% 50ML 50 ML IV STA (02:03)
[2017-08-03 02:33] LABS: BASO % 0.3 %; BASO ABS # 0.01 K/uL (0-0.2); COMPLETE YES; HEMATOCRIT 31.8 % (37-47); IG% 0.3 %; LYMPH % 15.3 %; LYMPH ABS # 0.45 K/uL (1.2-3.4); MEAN CELL VOLUME 88.3 fL (80-100); MEAN CORPUSCULAR HEMOGLOBIN 28.3 pg (25-34); MEAN CORPUSCULAR HGB CONC 32.1 g/dl (32-36); MEAN PLATELET VOLUME 8.1 fL (7.4-10.4); MONO % 8.5 %; NEUT % 74.6 %; PLATELET COUNT 167 K/uL (130-400); WHITE BLOOD COUNT 2.94 K/uL (4.8-10.8)
--- NOTE | 2017-08-03 02:38 | EMERGENCY ROOM VISIT NOTE ---
History Report prepared by Keo: Mirna Ramon Under the Supervision of: Dr. Mely Salomon D.O. First contact with patient: 01:11 Chief Complaint: ABDOMINAL PAIN Stated Complaint: SEVERE PAIN IN STOMACH,COLON CANCER,CONSTIPATION Nursing Triage Summary: pt ambulated to triage reports currently on chemo for stage 4 colon cancer with mets. has had intermittent vomitting since last Sun. History of Present Illness The patient is a 62 year old female who presents to the Emergency Room with complaints of persistent lower abdominal pain starting tonight. The patient has a history of stage 4 colon cancer with metastases to the bones and lungs. 6 days ago, she had her 12th chemo out of 12. The day before her last chemo she had some vomiting. The next day she felt better and decided to go get the chemo. Over the past week, she has been having smaller bowel movements than usual. She had not had trouble with constipation previously. She is feeling increasingly bloated. Her abdomen is becoming more hard and painful. She has not had this type of abdominal pain before. She started vomiting tonight. She is having trouble keeping even water down. She was unable to take her medications tonight because of the vomiting. She is now having burning in her chest. She has had dry mouth for the past 1.5 weeks. She was unable to dissolve Zofran in her mouth. She notes that she has to force herself to drink any liquids recently. She denies any cough, cold symptoms, or urinary symptoms. She did feel SOB after walking around the park 5 days ago. She has been nauseous and has had almost no food today. She notes that she had an abdominal US 3 weeks ago for left abdominal pain which was normal. Her current pain is different from that pain. Her temperature tonight was 98.3. Her temperature normally runs around 95-96. Her blood pressure is normally around 110/70. She is on pain medications. She takes Colace and Miralax as needed. Source of History: patient Onset: tonight Position: abdomen (lower) Quality: other (pain) Timing: other (persistent) Associated Symptoms: + chest pain, + SOB, + nausea, + vomiting, No cough, No urinary symptoms Note: Pt reports smaller bowel movements, dry mouth, bloated abdomen. Review of Systems See HPI for pertinent positives & negatives. A total of 10 systems reviewed and were otherwise negative. Past Medical & Surgical Medical Problems: (1) Asthma (2) Colon cancer metastasized to bone (3) Intractable low back pain Family History No pertinent family history Social History Smoking Status: Never Smoker Alcohol Use: none Drug Use: none Marital Status: Housing Status: lives with family Occupation Status: employed Current/Historical Medications Scheduled Acetaminophen (Tylenol), 650 MG PO HS Baclofen (Baclofen), 5 MG PO BID Cholecalciferol (Vitamin D3), 1,000 UNIT PO BID Cyanocobalamin (Vitamin B-12), 1,000 MCG PO BID Docusate Sodium (Docusate Sodium), 1 CAP PO BID Fentanyl (Fentanyl), 1 PATCH TOP Q72H Gabapentin (Gabapentin), 200 MG PO QAM Gabapentin (Neurontin), 200 MG PO AFTERNOON Gabapentin (Neurontin), 400 MG PO HS Scheduled PRN Ondansetron Hcl (Zofran), 4 MG PO Q6 PRN for Nausea Oxycodone/Acetaminophen 5MG/325MG (Percocet 5MG/325MG), 2 TABLETS PO Q4H PRN for Pain Polyethylene Glycol 3350 (Miralax), 17 GM PO DAILY PRN for Constipation Prochlorperazine Maleate (Compazine), 1 TAB PO Q6 PRN for Nausea or Vomiting Allergies Coded Allergies: Aspirin (Unverified Allergy, Unknown, UNKNOWN, 08/03/17) Caffeine (Unverified Allergy, Unknown, UNKNOWN, 08/03/17) Naproxen (Unverified Allergy, Unknown, UNKNOWN, 08/03/17) Orphenadrine (Unverified Adverse Reaction, Unknown, ALTERED MENTAL STATUS , 08/03/17) Salicylates (Unverified Adverse Reaction, Unknown, ALTERED MENTAL STATUS, 08/03/17) Uncoded Allergies: XANTHINE (Adverse Reaction, Unknown, ALTERED MENTAL STATUS, 02/01/17) Physical Exam Vital Signs Date Time Temp Pulse Resp B/P (MAP) Pulse Ox O2 Delivery O2 Flow Rate FiO2 08/03/17 07:35 99 18 131/77 96 Room Air 08/03/17 05:42 83 20 119/67 93 Room Air 08/03/17 04:05 90 20 127/61 95 Room Air 08/03/17 02:13 72 20 127/74 96 Room Air 08/03/17 01:07 113 18 163/99 100 Room Air Physical Exam GENERAL: alert, ill appearing, well nourished, no distress, non-toxic EYE EXAM: normal conjunctiva, PERRL and EOM's grossly intact OROPHARYNX: no exudate, no erythema, lips, buccal mucosa, and tongue normal and mucous membranes are moist NECK: supple, no nuchal rigidity, no adenopathy, non-tender LUNGS: Clear to auscultation. Normal chest wall mechanics HEART: no murmurs, S1 normal and S2 normal ABDOMEN: abdomen soft, diffuse lower abdominal tenderness, normo-active bowel sounds, no palpable masses, no organomegaly, no rebound or guarding. BACK: Back is symmetrical on inspection and there is no deformity, no midline tenderness, no CVA tenderness. SKIN: no rashes and no bruising UPPER EXTREMITIES: upper extremities are grossly normal. LOWER EXTREMITIES: No pitting edema. NEURO EXAM: Normal sensorium, cranial nerves II-XII grossly intact, normal speech, no gross weakness of arms, no gross weakness of legs. Medical Decision & Procedures ER Provider Diagnostic Interpretation: Radiology results have been interpreted by the [facility] radiologist and reviewed by me. CT Chest with Contrast: Left IJ Port-A-Cath with tip in the cavoatrial junction. No thoracic aortic dissection or aneurysm. No evidence of pulmonary embolus. Moderate to large right pleural effusion with adjacent atelectasis. Heart pericardium unremarkable. Sclerotic and lucent osseous metastatic disease. CT Abdomen & Pelvis with contrast: Impression: Moderate bowel wall thickening of the ascending colon and the distal small bowel. Findings may represent a nonspecific inflammatory or infectious process. The distal small bowel is distended likely secondary to low-grade bowel obstruction at the ileocecal valve. Moderate amount of ascites. Appendix is thickened likely secondary to the above findings. The appendix measures up to 12 mm. Additional findings: Gallbladder is distended. Liver, spleen, pancreas, and adrenal glands are unremarkable. Cysts are noted within both kidneys. No hydronephrosis. Uterus and adnexa are unremarkable. Noninflamed colonic diverticulosis. No acute osseous abnormality. X-ray: I interpreted the following studies. Chest X-ray s/p NG tube placement: tube appears folded back on itself in the esophagus. Chest X-ray s/p 2nd attempt at NG tube placement: Confirms appropriate placement into the stomach. Laboratory Results 08/03/17 02:18 Red Blood Count 3.60, Mean Corpuscular Volume 88.3, Mean Corpuscular Hemoglobin 28.3, Mean Corpuscular Hemoglobin Concent 32.1, Mean Platelet Volume 8.1, Neutrophils (%) (Auto) 74.6, Lymphocytes (%) (Auto) 15.3, Monocytes (%) (Auto) 8.5, Eosinophils (%) (Auto) 1.0, Basophils (%) (Auto) 0.3, Neutrophils # (Auto) 2.19, Lymphocytes # (Auto) 0.45, Monocytes # (Auto) 0.25, Eosinophils # (Auto) 0.03, Basophils # (Auto) 0.01 08/03/17 02:18 Test 08/03/17 01:31 08/03/17 02:18 Urine Color DK YELLOW Urine Appearance CLOUDY (CLEAR) Urine pH 5.0 (4.5-7.5) Urine Specific [place] 1.028 (1.000-1.030) Urine Protein 2+ (NEG) Urine Glucose (UA) NEG (NEG) Urine Ketones 4+ (NEG) Urine Occult Blood 1+ (NEG) Urine Nitrite NEG (NEG) Urine Bilirubin NEG (NEG) Urine Urobilinogen NEG (NEG) Urine Leukocyte Esterase SMALL (NEG) Urine WBC (Auto) 10-30 /hpf (0-5) Urine RBC (Auto) 5-10 /hpf (0-4) Urine Hyaline Casts (Auto) 1-5 /lpf (0-5) Urine Epithelial Cells (Auto) >30 /lpf (0-5) Urine Bacteria (Auto) NEG (NEG) Urine Renal Epithelial Cells /lpf (0-5) Urine Pathogenic Casts /lpf (0) Urine Mucus PRESENT (NONE PRSENT) White Blood Count 2.94 K/uL (4.8-10.8) Red Blood Count 3.60 M/uL (4.2-5.4) Hemoglobin 10.2 g/dL (12.0-16.0) Hematocrit 31.8 % (37-47) Mean Corpuscular Volume 88.3 fL (80-100) Mean Corpuscular Hemoglobin 28.3 pg (25-34) Mean Corpuscular Hemoglobin Concent 32.1 g/dl (32-36) Platelet Count 167 K/uL (130-400) Mean Platelet Volume 8.1 fL (7.4-10.4) Neutrophils (%) (Auto) 74.6 % Lymphocytes (%) (Auto) 15.3 % Monocytes (%) (Auto) 8.5 % Eosinophils (%) (Auto) 1.0 % Basophils (%) (Auto) 0.3 % Neutrophils # (Auto) 2.19 K/uL (1.4-6.5) Lymphocytes # (Auto) 0.45 K/uL (1.2-3.4) Monocytes # (Auto) 0.25 K/uL (0.11-0.59) Eosinophils # (Auto) 0.03 K/uL (0-0.5) Basophils # (Auto) 0.01 K/uL (0-0.2) RDW Standard Deviation 59.2 fL (36.4-46.3) RDW Coefficient of Variation 18.5 % (11.5-14.5) Immature Granulocyte % (Auto) 0.3 % Immature Granulocyte # (Auto) 0.01 K/uL (0.00-0.02) Prothrombin Time 11.6 SECONDS (9.0-12.0) Prothromb Time International Ratio 1.1 (0.9-1.1) Anion Gap 7.0 mmol/L (3-11) Est Creatinine Clear Calc Drug Dose 158.3 ml/min Estimated GFR () 138.4 Estimated GFR (Non- 119.4 BUN/Creatinine Ratio 34.5 (10-20) Lactic Acid Level 0.6 mmol/L (0.4-2.0) Calcium Level 7.6 mg/dl (8.5-10.1) Phosphorus Level 2.7 mg/dl (2.5-4.9) Magnesium Level 2.2 mg/dl (1.8-2.4) Total Bilirubin 0.5 mg/dl (0.2-1) Aspartate Amino Transf (AST/SGOT) 21 U/L (15-37) Alanine Aminotransferase (ALT/SGPT) 17 U/L (12-78) Alkaline Phosphatase 104 U/L (45-117) Troponin I 0.027 ng/ml (0-0.045) Total Protein 5.8 gm/dl (6.4-8.2) Albumin 2.7 gm/dl (3.4-5.0) Globulin 3.1 gm/dl (2.5-4.0) Albumin/Globulin Ratio 0.9 (0.9-2) Lipase 190 U/L (73-393) Laboratory results per my review. Medications Administered Medications (Trade) Dose Ordered Sig/[place] Route Start Time Stop Time Status Last Admin Dose Admin Sodium Chloride 1,000 ml @ 999 mls/hr Q1H1M STAT IV 08/03/17 01:25 08/03/17 02:25 DC 08/03/17 02:12 999 MLS/HR Morphine Sulfate (MoRPHine SULFATE INJ) 4 mg NOW STAT IV 08/03/17 01:25 08/03/17 01:27 DC 08/03/17 02:12 4 MG Ondansetron HCl 8 mg/Dextrose 54 ml @ 216 mls/hr NOW STAT IV 08/03/17 02:03 08/03/17 02:17 DC 08/03/17 02:03 216 MLS/HR Hydromorphone HCl (Dilaudid Inj) 1 mg Q15M PRN IV 08/03/17 03:00 08/03/17 08:27 DC 08/03/17 07:57 1 MG Sodium Chloride 1,000 ml @ 999 mls/hr Q1H1M STAT IV 08/03/17 02:47 08/03/17 03:47 DC 08/03/17 02:56 999 MLS/HR Prochlorperazine Edisylate (Compazine Inj) 5 mg NOW STAT IV 08/03/17 03:21 08/03/17 03:23 DC 08/03/17 03:38 5 MG Famotidine (Pepcid 20mg Iv Push) 20 mg NOW STAT IV 08/03/17 03:21 08/03/17 03:23 DC 08/03/17 03:38 20 MG Sodium Chloride 1,000 ml @ 200 mls/hr Q5H STAT IV 08/03/17 04:46 08/03/17 08:27 DC 08/03/17 04:46 200 MLS/HR Lorazepam (Ativan Inj) 0.5 mg NOW STAT IV 08/03/17 06:13 08/03/17 06:14 DC 08/03/17 06:24 0.5 MG ECG Indication: chest pain Rate (beats per minute): 94 Rhythm: sinus rhythm Findings: no acute ischemic change, no ectopy, other (normal axis, normal intervals) ED Course 0113: The patient was evaluated in room B9. A complete history and physical exam was performed. 0125: Morphine Sulfate 4 mg IV, NSS 1000 ml @ 999 mls/hr IV. 0203: Ondansetron HCl 8 mg/Dextrose 54 ml @ 216 mls/hr IV. 0247: NSS 1000 ml @ 999 mls/hr IV. 0300: Dilaudid Inj 1 mg IV. 0312: I reevaluated the patient. Her pain is improved, but she is still nauseous. 0321: Famotidine 20 mg IV, Compazine Inj 5 mg IV. 0439: I reevaluated the patient. Her nausea is improved after compazine. I discussed the findings and the treatment plan with the patient. She expresses agreement and understanding. She will be evaluated for further management. 0446: NSS 1000 ml @ 200 mls/hr IV. 0509: I reviewed the patient's case with Dr. Espinoza, [facility] hospitalist. He recommends a surgery consult. 0516: I discussed the patient's case with Dr. Mercado, [facility] general surgery. He recommends transfer to a facility with colorectal surgery. 0520: I reevaluated the patient. I had extensive conversation regarding her condition and surgical suggestion of transfer. They would prefer [facility] at this time. 0541: I discussed the patient's case with Dr. Alston, [facility] emergency general surgery. He recommends speaking with colorectal surgery. 0551: I discussed the patient's case with Dr. Chaves, [facility] colorectal surgery. He has accepted the patient for transfer. He would like an NG tube placed. 0605: I reevaluated the patient. I updated her on the conversation with the colorectal surgeon and the NG tube. She will be transferred to [facility] for further management. 0613: Lorazepam 0.5 mg IV. 0720: The nurse tried placing NG tube again. Patient states it feels improved. Another x-ray will be obtained. Medical Decision Differential diagnoses includes but is not limited to gastritis, peptic ulcer disease, GERD, gallbladder disease, pancreatitis, small bowel obstruction, acute coronary syndrome, pericarditis, ischemic bowel, irritable bowel disease, irritable bowel syndrome, appendicitis, diverticulitis, malignancy, hernia, urinary tract infection, torsion, perforation, trauma, infectious. Patient with metastatic colon cancer, located now with bowel obstruction. Patient initially wanted to remain here, however conversations with hospitalist and surgery on-call suggested the patient may benefit from transfer to tertiary care facility with colorectal surgery available. Patient improved here following pain and nausea medication.: Rectal surgery at [facility] requested placement of an NG tube prior to transfer. Initial x-ray following placement showed that this was coiled on the patient's proximal esophagus. This was removed and a new tube was placed with improved positioning. Medication Reconcilliation Current Medication List: was personally reviewed by me Blood Pressure Screening Patient's blood pressure: Elevated blood pressure Blood pressure disposition: Elevated BP felt to be situational Consults Time Called: 0448 Consulting Physician: Dr. Espinoza, [facility] hospitalist Returned Call: [phone] I reviewed the patient's case with him. He recommends a surgery consult. Additional Consults: Time Called: 05 Consulted Physician: Dr. Mercado, [facility] general surgery Returned Call: 0516 Additional Comments: I discussed the patient's case with him. He recommends transfer to a facility with colorectal surgery. Time Called: 0531 Consulted Physician: Dr. Alston, [facility] emergency general surgery Returned Call: [phone] Additional Comments: I discussed the patient's case with him. He recommends speaking with colorectal surgery. I discussed the patient's case with Dr. Chaves, [facility] colorectal surgery. He has accepted the patient for transfer. He would like an NG tube placed. Impression Primary Impression: Colon cancer metastasized to bone Additional Impressions: Abdominal pain Nausea & vomiting Dehydration Small bowel obstruction Scribe Attestation The scribe's documentation has been prepared under my direction and personally reviewed by me in its entirety. I confirm that the note above accurately reflects all work, treatment, procedures, and medical decision making performed by me. Departure Information Dispostion Transfer Acute Care Facility Referrals Avila Busch M.D. (PCP) Patient Instructions My [facility] Problem Qualifiers Additional Impressions: Abdominal pain Abdominal location: lower abdomen, unspecified Qualified Codes: R10.30 - Lower abdominal pain, unspecified Nausea & vomiting Vomiting type: unspecified Vomiting Intractability: non-intractable Qualified Codes: R11.2 - Nausea with vomiting, unspecified
[2017-08-03 02:42] LABS: INR 1.1 (0.9-1.1); PROTHROMBIN TIME (PATIENT) 11.6 SECONDS (9.0-12.0)
[2017-08-03 02:51] LABS: BUN/CREATININE RATIO 34.5 (10-20); CALCIUM 7.6 mg/dl (8.5-10.1); CREATININE 0.34 mg/dl (0.60-1.20); MAGNESIUM 2.2 mg/dl (1.8-2.4); POTASSIUM 4.1 mmol/L (3.5-5.1)
[2017-08-03] MEDS: HYDROmorphone INJ 1 MG/ML SYR IV PRN ×3 (02:54→07:57)
[2017-08-03 02:56] LABS: ALB/GLOB RATIO 0.9 (0.9-2); PHOSPHORUS 2.7 mg/dl (2.5-4.9)
[2017-08-03] MEDS ORDERED: OPTIRAY 320 IV PRN (03:00)
[2017-08-03] MEDS ORDERED: PROCHLORPERAZINE 5 MG/ML 2 ML VIAL IV STA (03:21)
[2017-08-03] MEDS ORDERED: FAMOTIDINE 20MG/5ML IV PUSH IV STA (03:21)
[2017-08-03] MEDS ORDERED: LORAZEPAM 2 MG/ML 1 ML VIAL IV STA (06:13)
[2017-08-03 07:35] VITALS: BP 131/77; PULSE 99; O2SAT 96
--- NOTE | 2017-08-03 07:42 | DIAGNOSTIC IMAGING REPORT ---
CHEST , ABDOMEN AND PELVIS CT WITH CONTRAST CT DOSE: 461.26 mGy.cm HISTORY: chest pain into back, history of colon cancer. Generalized abdominal pain. Constipation. TECHNIQUE: Multiaxial CT images of the chest , abdomen, pelvis were performed following the intravenous administration of contrast. A dose lowering technique was utilized adhering to the principles of ALARA. COMPARISON: Chest CT 03/13/2017. Abdomen and pelvis CT 01/23/2017. FINDINGS: Left subclavian vein Port-A-Cath which terminates at the right atrium. The central airways are patent. No pneumothorax. Calcified granuloma seen within the left lower lobe. Mild interstitial thickening at the lung bases. Diffuse osteoblastic metastatic disease is again noted. No mediastinal or hilar lymphadenopathy. The mediastinal vascular structures are within normal limits. The heart is normal in size. No left pleural effusion. Small to moderate right pleural effusion. Consolidation at the base of the right middle and lower lobes. This may represent compressive atelectasis from the pleural effusion. Diffuse osteoblastic metastatic disease is seen throughout the abdomen and pelvis. Mild nodular thickening along the anterior diaphragmatic/pericardial spaces. These measure up to 5 mm in size. No hepatic or splenic masses. The pancreas is unremarkable. No hydronephrosis. No retroperitoneal lymphadenopathy. Small amount of ascites with omental nodularity consistent with peritoneal carcinomatosis. The bladder is unremarkable. The uterus and bilateral adnexa are within normal limits. Moderate stool seen within the colon. Focal thickening at the distal ileum/ileocecal valve best seen on image 58 of 91. The bowel proximal to this area of thickening is fluid-filled and mildly distended measuring up to 3.1 cm. This also demonstrates fecal material within the distended loop of small bowel consistent with stasis. There are few additional sites of mild bowel wall thickening seen within the ileum within the right lower quadrant. Mesenteric edema. There is also thickening of the majority of the appendix measuring up to 11 mm. However, this is unchanged from the prior study. There is also moderate thickening of the cecum/proximal ascending colon. IMPRESSION: 1. Multiple thickened loops of ileum within the right lower quadrant as well as the cecum/proximal ascending colon. These findings are nonspecific and could be due to inflammatory or infectious process. However, peritoneal implants from metastatic disease could also have a similar appearance. This results in a focal transition point at the ileocecal valve with dilatation of the distal small bowel consistent with a small bowel obstruction. 2. Thickened/distended appendix, unchanged. This is also a result of the above abnormality. 3. Ascites with omental nodularity consistent with peritoneal carcinomatosis. 4. Small to moderate right pleural effusion. Consolidation at the right lung base is nonspecific but may be due to atelectasis from the pleural fluid. 5. Diffuse osteoblastic metastatic disease. Electronically signed by: Maxi Golden M.D. 08/03/2017 7:40 AM Dictated Date/Time: 08/03/2017 7:23 AM
--- NOTE | 2017-08-03 07:45 | DIAGNOSTIC IMAGING REPORT ---
CHEST ONE VIEW PORTABLE HISTORY: NG tube placement COMPARISON: Chest 04/01/2017. FINDINGS: No pneumothorax. Moderate right pleural effusion has increased in size. Diffuse interstitial thickening persists. The heart is stable in size. Left subclavian Port-A-Cath terminates in the right atrium. Nasogastric tube is curled within the proximal esophagus. Diffuse osteoblastic metastatic disease is again noted. IMPRESSION: 1. Nasogastric tube is curled within the proximal esophagus. This should be removed/replaced. 2. Increase in size in the moderate right pleural effusion. 3. Diffuse interstitial thickening persists. 4. Diffuse osteoblastic metastatic disease. Electronically signed by: Maxi Golden M.D. 08/03/2017 7:43 AM Dictated Date/Time: 08/03/2017 7:41 AM
--- NOTE | 2017-08-03 07:47 | DIAGNOSTIC IMAGING REPORT ---
CHEST ONE VIEW PORTABLE HISTORY: NG reposition COMPARISON: Chest 08/03/2017. FINDINGS: The nasogastric tube now terminates in the stomach. Moderate right pleural effusion and diffuse interstitial thickening, unchanged. Left subclavian catheter terminates at the right atrium. No pneumothorax. Diffuse osteoblastic metastatic disease. IMPRESSION: Nasogastric tube now terminates in the stomach. Electronically signed by: Maxi Golden M.D. 08/03/2017 7:46 AM Dictated Date/Time: 08/03/2017 7:45 AM
== END 2017-08-03 08:04 | disposition short-term general hospital (02) ==
LOC: C.EDB 01:01
DX: C18.9 Malignant neoplasm of colon, unspecified (principal); C79.51 Secondary malignant neoplasm of bone; C78.00 Secondary malignant neoplasm of unspecified lung; E86.0 Dehydration; K56.609 Unspecified intestinal obstruction, unspecified as to partial versus complete obstruction; Z79.899 Other long term (current) drug therapy; Z79.891 Long term (current) use of opiate analgesic

== ENCOUNTER → 2017-08-08 | Outpatient (CLI) | payer BC, OTHER ==
[~2017-08-08] MED LIST changes: -voltaren gel
--- NOTE | 2017-08-08 15:25 | DIAGNOSTIC IMAGING REPORT ---
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 FINDINGS: Moderate right pleural effusion and right basilar densities persist. Diffuse interstitial thickening persists. Left subclavian Port-A-Cath terminates at the superior cavoatrial junction. The heart is normal in size. No pneumothorax. IMPRESSION: No change in the moderate right pleural effusion, right basilar densities, and diffuse interstitial thickening. Electronically signed by: Maxi Golden M.D. 08/08/2017 3:24 PM Dictated Date/Time: 08/08/2017 3:22 PM
== END | disposition home or self-care (01) ==
LOC: C.RAD 14:46
PROVIDERS: ATTEND Internal Medicine Hematology & Oncology
DX: C18.0 Malignant neoplasm of cecum (principal); J90 Pleural effusion, not elsewhere classified; R91.8 Other nonspecific abnormal finding of lung field